=== PATIENT | male | born 1935 | race Caucasian/White ===

== ENCOUNTER 2019-01-25 01:28 | Day surgery (SDC) | payer MEDICARE, SELFPAY ==
[2019-01-22 12:38] VITALS: BMI 26.5
--- NOTE | 2019-01-24 17:24 | PM.IMHP ---
H&P: HPI History of Present Illness Chief complaint: Right Hallux Deformity Drop Foot, Painful Hardware Narrative: Raheem Rome is a 83 year old male who complains of right foot pain. He presents with pain and ulcer on the right side. He states that the symptoms have been chronic non-traumatic. The symptoms occur intermittently. Currently the patient states that the symptoms are mild-moderate. The pain is described as aching and localized. The symptoms occur intermittently. The patient indicates that the pain is located in the bottom of foot near great toe on the right side. The symptoms are aggravated by daily activities, walking and standing. Raheem states that the symptoms are relieved by rest and bandage changes. Review of Systems Constitutional: Constitutional: Denies fever(s) Eyes: Eyes: Reports blurry vision ENT: Reports hearing normal Cardiovascular: Cardiovascular: Denies chest pain, Reports irregular heart rhythm and Denies dyspnea Respiratory: Respiratory: Denies dyspnea and Denies wheezing Gastrointestinal: Gastrointestinal: Denies abdominal pain Genitourinary: Genitourinary: Denies urinary urgency Musculoskeletal: Musculoskeletal: Reports as per HPI and Denies numbness Integumentary/Breasts: Skin/Breast: Denies changing lesions and Denies sores Neurologic: Reports Normal hearing present, Denies behavioral changes, Denies confusion, Denies numbness and Denies convulsions Psychiatric: Psychiatric: Denies behavioral changes, Denies confusion and Denies hallucinations Endocrine: Endocrine: Denies heat intolerance Hematologic/Lymphatic: Hematologic/Lymphatic: Denies easy bleeding Allergic/Immunologic: Allergic/Immunologic: Denies wheezing PMFSH Family History Family History Mother Family history of malignant neoplasm, Onset Age: 62 Sibling Family history of malignant neoplasm, Onset Age: 45 Other Family history of cardiovascular disease Social History Social History Smoking status: Never smoker Alcohol intake: never Meds Home Medications and Allergies Home Medications Medication Instructions Recorded Confirmed Type levothyroxine 75 mcg PO DAILY 01/22/19 01/22/19 History lisinopril 2.5 mg PO DAILY 01/22/19 01/22/19 History metoprolol succinate 50 mg PO DAILY 01/22/19 01/22/19 History rivaroxaban [Xarelto] 20 mg PO HS 01/22/19 01/22/19 History Allergies Allergy/AdvReac Type Severity Reaction Status Date / Time No Known Allergies Allergy Unknown Unverified 01/22/19 12:19 NKFA Allergy Unknown Uncoded 01/22/19 12:32 Exam Const: General: healthy appearing; No in distress or confused Orientation/consciousness: oriented x3 and No confused HENMT: Head: normal to inspection, normocephalic and atraumatic Eyes: Conjunctivae: conjunctivae normal Sclera: sclerae normal Resp: Effort & Inspection: normal respiratory effort and no audible wheezes Cardio: Rhythm: abnormal rhythm Neuro: General: oriented x3 and No confused Extrem: Other: Strength LE * Strength Measurement - Ankle Long peroneal: Right: 4+/5, Left: 5/5. Ankle Dorsiflexion: Right: 2+/5, Left: 5/5. Ankle Plantarflexlon: Right: 5-/5. Foot Inversion: Right: 4+/5. Foot Eversion: Right: 4+/5. Foot Extensor toes: Right: 4/5. Foot Extensor great toe: Right: 5-/5. Foot Extensor hallucis longus: Right: 5-/5. Foot Flexor toes: Right: 4/5. Foot Flexor great toe: Right: 3+/5. Foot Flexor hallucis longus: Right: 2-/5. Ankle ROM L * Active ROM - Ankle Dorsiflexion: 10 degrees, Ankle Plantarflexion: 45 degrees, Inversion: 15 degrees, Eversion: 10 degrees. Ankle ROM R * Active ROM - Ankle Dorsiflexion: -15 degrees, Ankle Plantarflexion: 40 degrees, Eversion: 5 degrees, Inversion: 10 degrees. Passive ROM - Ankle Dorsiflexion: -10 degrees. Strength LE Normal Strength Description - Normal lower extremity: Bilateral. Con
[2019-01-25] VITALS (7 sets, daily range): BP systolic 114–138; BP diastolic 74–90; PULSE 61–79; RESP 12–20; TEMP 36.3–36.4; O2SAT 96–100
--- NOTE | ~2019-01-25 | XR_ITS ---
EXAMINATION: XR surgery orthopedic DATE: 01/25/2019 10:58 INDICATION: Arthrodesis of right first metatarsophalangeal joint. TECHNIQUE: 4 intraoperative spot fluoroscopic views of right foot were obtained. I was not present. F luoroscopy exposure time was 5 seconds. COMPARISON: Right foot radiographs 08/01/2018 FINDINGS: The plate and screws have been removed from the proximal first metatarsal. Images demonstra te placement of a dorsal plate and multiple screws across first metatarsophalangeal joint. IMPRESSION: 1. First metatarsophalangeal joint arthrodesis. Reviewed, dictated and finalized at location B. 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
--- NOTE | 2019-01-25 06:37 | WPDHPUPDATE1 ---
History and Physical Update Update Date/Time: 01/25/19 06:37 History and Physical has been reviewed, including an updated exam of the patient. There are NO changes in the patient's condition. Risks, benefits, and alternatives have been discussed and questions answered. Patient agrees to proceed with procedure.
[2019-01-25] MEDS: LACTATED RINGERS 1,000 ML 30 ML IV CONT ×2 (07:55→12:05)
[2019-01-25] MEDS: IBUPROFEN IV 800 MG/200 ML 800 MG/200 ML BAG 400 MG IVPB (08:00)
--- NOTE | 2019-01-25 08:12 | P.PNAN_ITS ---
Anes - Initial Pre Proc Eval Procedure: Operation Date: 01/25/19 09:00 Proposed Procedures p Right Hallux Metatarsophalangeal Arthrodesis, Extensor Tendon Transfer(Right) - David Dukes MD s Removal Hardware Right Foot(Right) - David Dukes MD Date/Time: 01/25/19 08:12 Surgeon: David Dukes MD Pre Op Diagnosis: Right Hallux Deformity Drop Foot, Painful Hardware Patient Data Age: 83 Gender: M Height: 1.78 m Weight: 83.99 kg Allergies Allergy/AdvReac Type Severity Reaction Status Date / Time No Known Allergies Allergy Unknown Unverified 01/25/19 07:48 Home Medications Medication Instructions Recorded Confirmed Type levothyroxine 75 mcg PO DAILY 01/22/19 01/25/19 History lisinopril 2.5 mg PO DAILY 01/22/19 01/25/19 History metoprolol succinate 50 mg PO DAILY 01/22/19 01/25/19 History rivaroxaban [Xarelto] 20 mg PO HS 01/22/19 01/25/19 History ECG: ATRIAL FIBRILLATION BORDERLINE R WAVE PROGRESSION, ANTERIOR LEADS BASELINE ARTIFACT- I, III, AVR, AVL, AVF, V1-V6 ABNORMAL ECG Patient hx anesthesia problems: none Family hx anesthesia problems: none [facility] Past Medical History Medical History (Updated 01/25/19 @ 07:58 by Rickey Joseph DO) Anticoagulant long-term use Atrial fibrillation Hypertension Hypothyroidism Neuropathy Osteoarthritis Family History Family History Mother Family history of malignant neoplasm, Onset Age: 62 Sibling Family history of malignant neoplasm, Onset Age: 45 Other Family history of cardiovascular disease Social History Social History Smoking status: Never smoker Alcohol intake: never Anes - Eval Final PreProcedure Day of Procedure 01/25/19 08:12 Heart: regular rate and rhythm Lungs: clear to auscultation and normal air movement Airway: Mallampati scale class III Neurological: alert and oriented Last oral intake: >/= 8 hours ASA classification: III Emergent: no Anesthetic plan: proceed Anesthesia type and monitoring: general LMA and standard monitoring Other findings: Stopped xarelto 01/22 Informed Consent: The patient's anesthetic plan and its attendant risks and benefits were discussed with the patient/family/POA. Questions were solicited and answers provided to the satisfaction of the patient/family/POA.
[2019-01-25] MEDS: ceFAZolin 2 GM/D5W 50 ML 2 GM/50 ML BAG IVPB (09:10)
--- NOTE | 2019-01-25 12:32 | PM.PROC ---
Procedure Note - Detailed Date of procedure: 01/25/19 Pre-op diagnosis: Right Hallux Deformity Drop Foot, Painful Hardware Post-op diagnosis: same Procedure performed: Right foot removal of hardware, hallux metatarsophalangeal arthrodesis, extensor tendon transfer. Description of procedure: Patient identified in the preoperative holding. Informed consent given. Operative extremity marked. Patient received intravenous antibiotics. Patient brought to the operating room where underwent general anesthetic by anesthesia team. Positioned supine on operating room table. Time-out performed confirming the patient, site of the surgery and the plan. Right foot prepped and draped in usual sterile surgical fashion using ChloraPrep skin solution. Foot and ankle exsanguinated and a calf tourniquet inflated to 225 mmHg. The hardware was addressed 1st. A dorsal longitudinal incision was made over the base of the 1st metatarsal with a 15 blade knife. Hemostasis controlled electrocautery. Extensor tendon was retracted laterally and sharp dissection overlying the plate and screws. There were 3 screws in the horizontal portion and 3 screws in the longitudinal portion of the plate which were all removed. The plate was then taken out. The overgrowth of bone was removed with a rongeur. This was thoroughly irrigated and the fascia was repaired with 2 O Vicryl interrupted suture. There is a previous dorsomedial longitudinal incision over the distal 1st metatarsal which was utilized for the arthrodesis. This was made with 15 blade knife. Hemostasis controlled Ld tree. The extensor tendon again was retracted laterally. The dorsal capsule was incised line with skin incision. There was severe deformity with dorsal dislocation of the proximal phalanx. We had to release the capsule and soft tissue off the medial lateral aspects of the proximal phalanx and the distal 1st metatarsal. This allowed us to then free up the metatarsophalangeal joint and reduced the hallux. The joint was then prepared with the Integra metatarsophalangeal joint preparation reamers. Guide pin was placed in the 1st metatarsal head and the articular surface was reamed. The guide pin was then placed in the phalangeal surface in the articular surface was reamed. The wound was thoroughly irrigated with antibiotic solution. Local bone graft was then packed into the arthrodesis site and this was reduced and provisionally pinned. Image intensification confirm alignment of the metatarsophalangeal joint. Fixation was then achieved with 3.0 mm cannulated lag screws x2 and a dorsal locking plate with 2.7 mm locking screws. Final position and placement of the hardware was verified with image intensification. The wound was thoroughly irrigated antibiotic solution. Capsule repaired with 2 Vicryl interrupted suture. Subcutaneous tissue repaired with 3 Monocryl interrupted suture. Skin repaired with 4 nylon running suture. There still a flexion deformity at the IP joint due to his previous deformity. In order to reduce the hallux a Z-lengthening of the extensor hallucis longus tendon was performed. Proximal portion was then split. A incision over the medial cuneiform that was extended and carried down to the dorsal cortex. Tibialis anterior was noted to be nonfunctional. The extensor hallucis longus was then transferred to the medial cuneiform with a bio tenodesis screw. A 5.0 mm drill was placed dorsal plantar. The tendon was placed into the drill hole and secured with a 4.75 x 15 mm bio tenodesis screw. The other portion of extensor hallucis tendon was then advanced and secured to the distal portion of extensor hallucis to bring the toe into neutral position. Wounds were thoroughly irrigated antibiotic solution. Fascia repaired with 2 Vicryl suture. Subcutaneous tissue repaired with 3 0 Monocryl interrupted suture and skin repaired with 4 nylon running suture. Secondary to transfer the extensor hallucis the foot was
== END 2019-01-25 14:02 | disposition home or self-care (01) ==
PROVIDERS: PCP Internal Medicine; Visit Provider Orthopaedic Surgery
PROC: (CPT 28750; principal; 2019-01-25 09:00)
PROC: (CPT 20680; 2019-01-25 09:00)
DX: M20.5X1 Other deformities of toe(s) (acquired), right foot (principal); T84.84XA Pain due to internal orthopedic prosthetic devices, implants and grafts, initial encounter; M21.371 Foot drop, right foot; L97.522 Non-pressure chronic ulcer of other part of left foot with fat layer exposed; L97.514 Non-pressure chronic ulcer of other part of right foot with necrosis of bone; I48.91 Unspecified atrial fibrillation; I10 Essential (primary) hypertension; E03.9 Hypothyroidism, unspecified; G62.9 Polyneuropathy, unspecified; M19.90 Unspecified osteoarthritis, unspecified site; Z79.01 Long term (current) use of anticoagulants
CPT/HCPCS: 20680; 28750; 27690; 76000; C1713; J0131; J0690; J1100; J1170; J1741; J2405; J2704; J3010; J7120

== ENCOUNTER 2020-11-26 13:20 | Outpatient (CLI) | payer MEDICARE, SELFPAY ==
--- NOTE | 2020-11-26 13:15 | ECG_ITS ---
Measurements Intervals [place] Rate: 62 P: [place]: 0 QRS: 5 QRSD: 85 T: 28 QT: 348 QTc: 356 Interpretive Statements ATRIAL FIBRILLATION LOW QRS VOLTAGE IN PRECORDIAL LEADS POOR R WAVE PROGRESSION, ANTERIOR LEADS BASELINE ARTIFACT- I, II, III, AVR, AVL, AVF, V3 ABNORMAL ECG Electronically Signed On 11-26-2020 14:34:24 CDT by Osmar Rodriguez D.O.
== END 2020-11-26 13:21 | disposition home or self-care (01) ==
LOC: ANHSURGERY 13:25
PROVIDERS: PCP Internal Medicine; Visit Provider Surgery
DX: K40.90 Unilateral inguinal hernia, without obstruction or gangrene, not specified as recurrent (principal); I10 Essential (primary) hypertension; Z01.818 Encounter for other preprocedural examination; R94.31 Abnormal electrocardiogram [ECG] [EKG]
CPT/HCPCS: 36415; 86850; 86900; 86901; 93005

== ENCOUNTER 2020-12-03 02:35 | Day surgery (SDC) | payer MEDICARE, SELFPAY ==
[2020-11-24 09:41] VITALS: BMI 25.4
[2020-12-03] VITALS (14 sets, daily range): BP systolic 128–149; BP diastolic 63–101; PULSE 51–87; RESP 15–18; TEMP 36.1–36.5; O2SAT 94–100
[2020-12-03] MEDS: LACTATED RINGERS 1,000 ML 30 ML IV CONT ×3 (06:42→10:55)
[2020-12-03] MEDS: KETOROLAC 15 MG/ML VIAL (*BKC) IV PUSH (06:47)
[2020-12-03] MEDS: ACETAMINOPHEN 500 MG TABLET 1000 MG PO (06:47)
--- NOTE | 2020-12-03 06:53 | WPDANESEPPF ---
Anes - Initial Pre Proc Eval Procedure: Operation Date: 12/03/20 07:30 Proposed Procedures p Laparoscopic Left Inguinal Hernia Repair With Mesh, DaVinci Assisted - Clint Cavazos DO Date/Time: 12/03/20 06:53 Surgeon: Clint Cavazos DO Pre Op Diagnosis: Left Ing Hernia Patient Data Age: 85 Gender: M Height: 1.79 m Weight: 85.5 kg Last Vital Signs Temp 36.1 C L 12/03/20 06:34 Pulse 87 12/03/20 06:34 Resp 18 12/03/20 06:34 BP 149/98 H 12/03/20 06:34 Pulse Ox 100 12/03/20 06:34 Allergies Allergy/AdvReac Type Severity Reaction Status Date / Time No Known Allergies Allergy Unknown Verified 12/03/20 06:31 Home Medications Medication Instructions Recorded Confirmed Type Xarelto 20 mg PO QPM 01/22/19 12/03/20 History lisinopril 2.5 mg PO DAILY 01/22/19 11/24/20 History metoprolol succinate 50 mg PO DAILY 01/22/19 12/03/20 History levothyroxine 75 mcg PO DAILY 12/03/20 12/03/20 History Patient hx anesthesia problems: none Family hx anesthesia problems: none Results Review: All pre-operative results and documents have been reviewed as part of the pre-operative evaluation. [facility] Past Medical History Medical History Anticoagulant long-term use Atrial fibrillation Callus of foot Hypertension Hypothyroidism Neuropathy Non-pressure chronic ulcer of other part of left foot with fat layer exposed Osteoarthritis Surgical History Surgical History (Updated 12/03/20 @ 06:53 by Blade Montenegro MD) History of appendectomy 1970 History of foot surgery Family History Family History Mother Family history of malignant neoplasm, Onset Age: 62 Sibling Family history of malignant neoplasm, Onset Age: 45 Father Family history of cardiovascular disease Social History Social History Smoking status: Never smoker Alcohol intake: never Living arrangements: with family 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 Informed Consent: The patient's anesthetic plan and its attendant risks and benefits were discussed with the patient/family/POA. Questions were solicited and answers provided to the satisfaction of the patient/family/POA.
--- NOTE | 2020-12-03 07:14 | PM.IMHP ---
H&P: HPI History of Present Illness Date/Time: 12/03/20 07:14 Chief Complaint: left inguinal hernia Narrative: 85 yo man presents for left inguinal hernia repair. He reports no changes since last seen in office. Review of Systems Review of Systems: All systems reviewed & are unremarkable except as noted in HPI and below Constitutional: Constitutional: Denies chills, Denies fever(s), Denies headache(s) and Denies weight loss Eyes: Eyes: Denies change in vision ENT: Denies dizziness, Denies headache(s), Denies neck mass and Denies throat swelling Cardiovascular: Cardiovascular: Denies chest pain, Denies lightheadedness and Denies dyspnea Respiratory: Respiratory: Denies cough, Denies dyspnea and Denies wheezing Gastrointestinal: Gastrointestinal: Denies abdominal pain, Denies change in bowel habits, Denies nausea and Denies vomiting Genitourinary: Genitourinary: Denies hematuria and Denies dysuria Musculoskeletal: Musculoskeletal: Reports as per HPI Integumentary/Breasts: Skin/Breast: Reports as per HPI Neurologic: Denies dizziness and Denies headache(s) Allergic/Immunologic: Allergic/Immunologic: Denies throat swelling and Denies wheezing [facility] Past Medical History Medical History Anticoagulant long-term use Atrial fibrillation Callus of foot Hypertension Hypothyroidism Neuropathy Non-pressure chronic ulcer of other part of left foot with fat layer exposed Osteoarthritis Surgical History Surgical History (Updated 12/03/20 @ 06:53 by Blade Montenegro MD) History of appendectomy 1970 History of foot surgery Family History Family History Mother Family history of malignant neoplasm, Onset Age: 62 Sibling Family history of malignant neoplasm, Onset Age: 45 Father Family history of cardiovascular disease Social History Social History Smoking status: Never smoker Alcohol intake: never Living arrangements: with family 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 Spiritual 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 concerns: No Meds Home Medications and Allergies Home Medications Medication Instructions Recorded Confirmed Type Xarelto 20 mg PO QPM 01/22/19 12/03/20 History lisinopril 2.5 mg PO DAILY 01/22/19 11/24/20 History metoprolol succinate 50 mg PO DAILY 01/22/19 12/03/20 History levothyroxine 75 mcg PO DAILY 12/03/20 12/03/20 History Allergies Allergy/AdvReac Type Severity Reaction Status Date / Time No Known Allergies Allergy Unknown Verified 12/03/20 06:31 Vital Signs Vital Signs - 24 hr 12/03/20 06:34 Temperature 36.1 C L Pulse Rate 87 Respiratory Rate 18 Blood Pressure 149/98 H Pulse Oximetry 100 Exam Const: General: no acute distress and alert Orientation/consciousness: patient oriented x3 HENMT: Head: normocephalic and atraumatic Ears: hearing grossly normal bilaterally General nose exam: Normal nares present Mouth: Yes Normal oral and palatal mucosa present Eyes: Periorbital: periorbital findings normal Sclera: sclerae normal EOM: EOMs intact bilaterally Neck: Neck: normal visual inspection, no lymphadenopathy and trachea midline Chest: Chest palpation & inspection: normal inspection of the chest Resp: Effort & Inspection: normal respiratory effort Auscultation: clear to auscultation bilaterally Cardio: Jugular venous distension: no JVD Rate: regular rate Rhythm: regular rhythm Heart sounds: S1 normal heart sound present and S2 normal heart sound present Peripheral pulses: Peripheral pulses 2+ throughout GI: Inspection: normal to inspection GI Palp: Yes Soft to palpation, No Tenderness to palpation present (GI), No Guarding due to palpation present (GI) and No Rebound tenderness present Percussion: Yes normal to percussion Auscultation: normal bowel sounds : G
--- NOTE | 2020-12-03 07:16 | WPDHPUPDATE1 ---
History and Physical Update Update Date/Time: 12/03/20 07:16 History and Physical has been reviewed, including an updated exam of the patient. There are NO changes in the patient's condition. Risks, benefits, and alternatives have been discussed and questions answered. Patient agrees to proceed with procedure.
[2020-12-03] MEDS: ceFAZolin 2 GM/D5W 50 ML 2 GM/50 ML BAG IVPB (07:28)
[2020-12-03] MEDS: BUPIVACAINE HCL 0.5% PF 30 ML VIAL INFILTRATE (08:16)
--- NOTE | 2020-12-03 08:40 | W.PM.PROC2 ---
Procedure Note - Detailed Date of Procedure 12/03/20 Pre-op Diagnosis Left inguinal hernia Post-op Diagnosis same (Direct left inguinal hernia) Procedure Performed Laparoscopic left inguinal hernia repair with mesh, da Che assisted Surgeon Clint Cavazos, Anesthesia general and local (0.5% bupivacaine with epinephrine) Indications This is an 85-year-old man who presents with left groin pain that has worsened over the past year. He was found to have evidence of left inguinal hernia. He initially held off on surgery because he was having minimal pain and wanted to wait until the COVID restrictions had lifted, but now his pain has become more consistent and he is having to wear a hernia belt. Discussions were made with the patient about treatment options and decision was made to proceed with robotic assisted laparoscopic left inguinal hernia repair with mesh. Findings Laparoscopic left inguinal hernia repair was performed. Patient was found to have a moderate-sized direct left inguinal hernia. There was no evidence of a right inguinal hernia. The preperitoneal pocket was created and a robotic assisted transabdominal preperitoneal approach was utilized. A large left Bard 3DMax mid mesh was placed. I ensured that this overlapped the entire left myopectineal orifice. No specimens were obtained for pathology. Description of Procedure Procedure as well as risks, benefits, and alternatives were discussed with the patient. Written consent was obtained and placed in chart prior to procedure. Patient was brought back to surgical suite. He was placed supine on operating table. Time-out was done to confirm patient and procedure. He was then intubated by Anesthesia Department. His abdomen was prepped and draped in sterile fashion using chlorhexidine prep. 0.5% bupivacaine with epinephrine was infiltrated at each location for incision. A 12 millimeter transverse incision was made just superior to the umbilicus using a 15 blade scalpel. Blunt dissection was carried out down to the linea alba. A vertical incision was made at the linea alba using a 15 blade scalpel. The peritoneum was then bluntly entered. A 12 millimeter trocar was inserted and carbon dioxide insufflation was used to create a pneumoperitoneum. A camera was inserted and the abdominal cavity was inspected. The patient was placed in slight Trendelenburg position. An 8 millimeter incision was made on the right lateral abdomen and an 8 millimeter trocar was inserted under direct visualization. Another 8 millimeter incision was made in the left lateral abdomen and an 8 millimeter trocar was inserted under direct visualization. The robotic arms were brought up to the patient's bedside and secured to the ports. The camera and instruments were inserted. I then moved over to the robotic console and took control of the camera and instruments. After careful inspection of the abdominal cavity, I began scoring the peritoneum along the left lower quadrant using scissors with electrocautery. The preperitoneal plane was entered and this was carefully dissected caudally along the inferior epigastric vessels. Careful dissection with scissors with electrocautery and blunt dissection was used to continue this dissection. I dissected far enough laterally to allow for mesh placement, and also dissected medially to identify the pubic arch and Sandeep's ligament. The hernia sac was identified and carefully dissected posteriorly. The cord contents were also identified and the peritoneum was carefully dissected far enough posteriorly to allow for mesh placement. Once an adequate pocket was created, I then placed the mesh within the preperitoneal pocket and carefully unfolded it. The mesh was centered on the hernia defect with adequate overlap circumferentially. The inferior edge of the mesh was inspected to ensure that it was far enough away from the peritoneal edge. The mesh appeared in proper position overlying
--- NOTE | 2020-12-03 11:53 | SUR.PHASEII ---
Patient attempted to use the bathroom and had no luck.
--- NOTE | 2020-12-03 13:48 | SUR.PHASEII ---
RN bladder scanned patient at about 1325. Patient had 598mL in bladder. RN notified Dr. Cavazos. Dr. Cavazos went and spoke to patient about next steps in outpatient room. Dr. Cavazos told RN to give it another hour and see if patient was able to void on own.
--- NOTE | 2020-12-03 14:42 | SUR.PHASEII ---
Patient's vitals are stable. Patient is getting dressed and waiting for spouse to pick him up. Dr. Cavazos made aware that patient was able to void a steady stream and said it was ok to discharge home as long as patient felt ok.
== END 2020-12-03 15:05 | disposition home or self-care (01) ==
PROVIDERS: PCP Internal Medicine; Visit Provider Surgery
PROC: 8E0Y4CZ Robotic Assisted Procedure of Lower Extremity, Percutaneous Endoscopic Approach (ICD-10-PCS; CPT 49650; principal; 2020-12-03 07:30)
DX: K40.90 Unilateral inguinal hernia, without obstruction or gangrene, not specified as recurrent (principal); I48.91 Unspecified atrial fibrillation; I10 Essential (primary) hypertension; E03.9 Hypothyroidism, unspecified; G62.9 Polyneuropathy, unspecified; Z79.01 Long term (current) use of anticoagulants
CPT/HCPCS: 49650; S2900; 36415; 86850; 86900; 86901; 93005; A9270; J0690; J1100; J1885; J2405; J2704; J3010; J7030; J7120

== ENCOUNTER 2021-11-05 07:46 | Emergency (ER) | payer MEDICARE, SELFPAY ==
--- NOTE | ~2021-11-05 | XR_ITS ---
EXAMINATION: XR chest 2V DATE: 11/05/2021 08:45 INDICATION: Chest pain. Shortness of breath. TECHNIQUE: Frontal and lateral views of the chest were obtained. COMPARISON: Chest 2 views 11/15/2004 FINDINGS: There are airspace opacities in the lower lung zones. No pleural effusion or pneumothorax. The heart size is normal. There is mild chronic anterior wedging of multiple thoracic vertebral casey s. IMPRESSION: 1. Airspace opacities in the lower lung zones, consistent with atelectasis versus pneumonia. Reviewed, dictated and finalized at location A. IMPRESSION: 1. Airspace opacities in the lower lung zones, consistent with atelectasis vers us pneumonia.
[2021-11-05 07:55] VITALS: BP 148/78; PULSE 77; RESP 19; TEMP 36.2; O2SAT 98
--- NOTE | 2021-11-05 07:58 | ECG_ITS ---
Measurements Intervals [place] Rate: 70 P: [place]: 0 QRS: 32 QRSD: 94 T: 39 QT: 365 QTc: 394 Interpretive Statements ATRIAL FIBRILLATION LOW QRS VOLTAGE IN LIMB LEADS BORDERLINE R WAVE PROGRESSION, ANTERIOR LEADS BASELINE WANDER- V5-V6 ABNORMAL ECG COMPARED TO ECG 11/26/2020 13:40:03 NO SIGNIFICANT CHANGES Electronically Signed On 11-05-2021 8:02:51 CDT by Osmar Rodriguez D.O.
[2021-11-05 08:01] VITALS: PULSE 84
[2021-11-05 08:33] LABS: Alanine Aminotransferase 22 U/L (6-50); Albumin Level 4.1 g/dL (3.5-5.1); Alkaline Phosphatase 55 U/L (38-126); Anion Gap 9 mmol/L (8-16); Aspartate Amino Transferase 27 U/L (17-59); Bilirubin,Total 0.6 mg/dL (0.2-1.3); Blood Urea Nitrogen 29 mg/dL (9-20); Calcium 8.7 mg/dL (8.4-10.2); Carbon Dioxide 27 mmol/L (22-30); Chloride 104 mmol/L (98-107); Estimated CRCL calculation 48 ml/min; Estimated Glomerular Filt Rate > 60; Glucose 115 mg/dL (65-110); Lipase 63 U/L (23-300); Potassium 4.5 mmol/L (3.4-5.0); Sodium 140 mmol/L (137-145)
[2021-11-05 08:39] LABS: INR 1.5; Prothrombin Time 17.3 Seconds (11.1-14.7)
[2021-11-05 08:40] LABS: Partial Thromboplastin Time 36.6 SECONDS (22.3-36.8)
[2021-11-05 08:44] LABS: Troponin I < 0.012 ng/mL (0.000-0.034)
[2021-11-05 08:50] LABS: Basophils Percent Auto 0.7 % (0.2-1.2); Eosinophils Absolute Auto 0.1 K/mm3 (0-0.3); Eosinophils Percent Auto 1.8 % (0-4.4); Hematocrit 45.7 % (42.0-52.0); Hemoglobin 14.9 g/dL (14.0-18.0); Immature Granulocyte Absolute 0.03 K/mm3 (0.00-0.031); Immature Granulocyte Percent A 0.5 % (0-0.5); Lymphocytes Absolute Auto 1.26 K/mm3 (0.9-3.2); Lymphocytes Percent Auto 22.2 % (18.3-44.2); Mean Corpuscular HGB Conc 32.6 g/dl (32-36); Mean Corpuscular Hemoglobin 33.2 pg (26-34); Mean Corpuscular Volume 101.8 fl (80-100); Mean Platelet Volume 10.6 fl (7.4-10.4); Monocytes Absolute Auto 0.6 K/mm3 (0.1-0.6); Monocytes Percent Auto 11.1 % (2.6-8.5); Neutrophils Absolute Auto 3.6 K/mm3 (1.3-6.7); Neutrophils Percent Auto 63.7 % (45.5-73.1); Platelet Count Result 164 k/mm3 (150-375); Red Blood Count 4.49 M/mm3 (4.6-6.20); Red Cell Distribution Width 13.5 % (11.5-14.5); White Blood Count 5.7 K/mm3 (4.5-10.0)
--- NOTE | 2021-11-05 09:26 | ED.GENADULT ---
HPI - General Adult General Chief complaint: Chest Pain Stated complaint: chest pain Time Seen by Provider: 11/05/21 08:00 History of Present Illness HPI narrative: This is an 86-year-old male presenting to ED with chief complaint of chest discomfort. Last night the patient was working on a wheelbarrow his house when he started to feel some less sided discomfort. Says was not quite pain but did not feel right. It radiated to his left arm. Said that it comes and goes but is completely resolved once he stopped working on the wheelbarrow. He has never experienced pain like this before. There are no exacerbating factors. It was not associated with nausea vomiting diaphoresis shortness of breath. Patient denies fever chills or productive cough. Patient has chronic lower extremity edema of his legs which has been there for years. Related Data Home Medications Medication Instructions Recorded Confirmed lisinopril 2.5 mg tablet 2.5 mg PO DAILY 01/22/19 07/28/21 metoprolol succinate 50 mg 50 mg PO DAILY 01/22/19 07/28/21 tablet,extended release 24 hr rivaroxaban 20 mg tablet (Xarelto) 20 mg PO QPM 01/22/19 07/28/21 Allergies Allergy/AdvReac Type Severity Reaction Status Date / Time No Known Allergies Allergy Unknown Verified 11/05/21 08:05 Review of Systems Review of Systems: CONSTITUTIONAL: Denies night sweats. EYES: No eye pain ENT: Denies rhinorrhea CARDIOVASCULAR: Denies palpitations RESPIRATORY: Denies hemoptysis GASTROINTESTINAL: Denies hematemesis GENITOURINARY: Denies hematuria. SKIN: Denies rash MUSCULOSKELETAL: Denies myalgia. NEUROLOGIC: Denies weakness. PSYCHIATRIC: Denies delusions PMFSH Past Medical History Medical History Anticoagulant long-term use Atrial fibrillation Callus of foot Hypertension Hypothyroidism Neuropathy Non-pressure chronic ulcer of other part of left foot with fat layer exposed Osteoarthritis Surgical History Surgical History H/O left inguinal hernia repair lih repair w mesh davinci assisted 12/03/20 History of appendectomy 1970 History of foot surgery Family History Family History Mother Family history of malignant neoplasm, Onset Age: 62 Sibling Family history of malignant neoplasm, Onset Age: 45 Father Family history of cardiovascular disease Social History Social History Smoking status: Never smoker Alcohol intake: never 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 Spiritual care concerns: No Course Vital Signs Vital signs: Vital Signs Temperature 97.1 F L 11/05/21 07:55 Pulse Rate 77 11/05/21 07:55 Respiratory Rate 19 11/05/21 07:55 Blood Pressure 148/78 H 11/05/21 07:55 Pulse Oximetry 98 11/05/21 07:55 Oxygen Delivery Room Air 11/05/21 07:55 Temperature 97.1 F L 11/05/21 07:55 Pulse Rate 59 L 11/05/21 12:55 Respiratory Rate 11/05/21 12:55 Blood Pressure 123/90 11/05/21 12:55 Pulse Oximetry 98 11/05/21 12:55 Oxygen Delivery Room Air 11/05/21 07:55 Medical Decision Making MDM Narrative Medical decision making narrative: This is an 86-year-old male presenting ED with chest pain. He is currently chest pain-free. ACS workup has been obtained. lab work was within acceptable limits. Patient had 2- troponins. Chest x-ray showed bibasilar atelectasis vs. pneumonia. Patient is not in respiratory distress, does not have fever, does not have a white blood cell count. There is no evidence of clinical pneumonia at this time. EKG interpretation: Rhythm Atrial fibrillation, Rate 70, [place] -[normal], [place] -[normal], QRS [narrow], QTC [normal], T waves -[negative for concerning inversions], ST Segments - [Negative for concerning eleva
[2021-11-05 10:19] VITALS: BP 134/98; PULSE 63; RESP 18; O2SAT 98
[2021-11-05] MEDS: ASPIRIN 81 MG CHEWABLE TABLET 324 MG PO (10:19)
[2021-11-05 11:32] LABS: Troponin I < 0.012 ng/mL (0.000-0.034)
[2021-11-05 12:55] VITALS: BP 123/90; PULSE 59; RESP 19; O2SAT 98
[2021-11-05 13:35] VITALS: BP 137/84; PULSE 54; RESP 19; O2SAT 98
== END 2021-11-05 13:35 | disposition home or self-care (01) ==
PROVIDERS: Emergency Provider Emergency Medicine; PCP Family Medicine
DX: R07.89 Other chest pain (principal); I48.91 Unspecified atrial fibrillation; I10 Essential (primary) hypertension; E03.9 Hypothyroidism, unspecified; G62.9 Polyneuropathy, unspecified; M19.90 Unspecified osteoarthritis, unspecified site; Z79.01 Long term (current) use of anticoagulants; R94.31 Abnormal electrocardiogram [ECG] [EKG]
CPT/HCPCS: 36415; 71046; 80053; 83690; 84484; 85025; 85610; 85730; 93005; 99284; A9270

== ENCOUNTER → 2021-11-16 13:58 | Outpatient (CLI) | payer MEDICARE, SELFPAY ==
--- NOTE | ~2021-11-16 | XR_ITS ---
EXAMINATION: XR chest 2V 11/16/2021 14:09 INDICATION: Chest pain PROCEDURE: 2 view chest COMPARISON: 11/05/2021 FINDINGS: The lungs are clear. The cardiomediastinal silhouette is within normal limits. There are no pleural effusions. There is no pneumothorax suspected. IMPRESSION: 1: NO ACUTE CARDIOPULMONARY DISEASE. Reviewed, dictated and finalized at location A.
== END ==
PROVIDERS: PCP Family Medicine; Visit Provider Family Medicine
DX: R07.9 Chest pain, unspecified (principal)
CPT/HCPCS: 71046

== ENCOUNTER 2021-12-10 10:43 | Emergency (ER) | payer MEDICARE, SELFPAY ==
--- NOTE | ~2021-12-10 | XR_ITS ---
XR hand LT 2V 12/10/2021 11:41 Indication: Left hand pain Procedure: 2 views left hand Comparison: No prior studies for comparison. Findings: There is osteopenia. There is moderate polyarticular osteoarthritis. No acute fracture, sub luxation or dislocation. No focal soft tissue abnormalities. No foreign bodies. Impression: 1: No acute fracture. Reviewed, dictated and finalized at location B. Impression: 1: No acute fracture.
--- NOTE | 2021-12-10 12:19 | ED.WOUNDLAC ---
HPI - Wound/Laceration General Chief Complaint: Wound/Laceration Stated Complaint: wound to left hand Time Seen by Provider: 12/10/21 12:01 Source: RN notes reviewed History of Present Illness HPI narrative: Presents to emergency department from home for left hand wound. Patient states he was working on his tractor this morning try to figure out why it was not working at his diet hands done working around some electrical panel when he stated he noticed an area of itching on the back of his left hand and a look in the hand was swollen and mildly purplish in color over the dorsal aspect he denies any known trauma to the area states the area does not hurt states the swelling has improved since earlier this morning he has full function of his left hand without any difficulty Related Data Home Medications Medication Instructions Recorded Confirmed lisinopril 2.5 mg tablet 2.5 mg PO DAILY 01/22/19 07/28/21 metoprolol succinate 50 mg 50 mg PO DAILY 01/22/19 07/28/21 tablet,extended release 24 hr rivaroxaban 20 mg tablet (Xarelto) 20 mg PO QPM 01/22/19 07/28/21 Allergies Allergy/AdvReac Type Severity Reaction Status Date / Time No Known Allergies Allergy Unknown Verified 11/16/21 13:58 Review of Systems Review of Systems: Gen.: Denies fevers or chills Musculoskeletal: See HPI Neuro: Denies numbness, tingling, weakness Skin: Denies rash Endo: Denies DM PMFSH Past Medical History Medical History Anticoagulant long-term use Atrial fibrillation Callus of foot Hypertension Hypothyroidism Neuropathy Non-pressure chronic ulcer of other part of left foot with fat layer exposed Osteoarthritis Surgical History Surgical History H/O left inguinal hernia repair lih repair w mesh davinci assisted 12/03/20 History of appendectomy 1970 History of foot surgery Family History Family History Mother Family history of malignant neoplasm, Onset Age: 62 Sibling Family history of malignant neoplasm, Onset Age: 45 Father Family history of cardiovascular disease Social History Social History Smoking status: Never smoker Alcohol intake: never 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 Following commands, speech normal, no focal deficits SKIN:: Warm, dry. Normal Color no rash or lesions Course Course Emergency Course: Discussed with patient results of workup and diagnosis. Discussed need for follow-up with primary care, proper use of medication, and reasons to return to the emergency department. Patient understands and agrees to current treatment plan Discharge Plan Discharge Clinical Impression: Contusion of finger of left hand Patient Disposition: Home, Self-Care Condition: Stable Instructions: Antibiotic Form, Contusion in Adults (ED) Additional Instructions: Return for increasing pain swelling or any other symptoms of concern Prescriptions: No Action metoprolol succinate 50 mg Tablet Extended Release 24 Hr 50 mg PO DAILY lisinopril 2.5 mg Tablet 2.5 mg PO DAILY Xarelto 20 mg Tablet 20 mg PO QPM Hold Instructions: Resume on 12/04/20. levothyroxine 75 mcg tablet 75 mcg PO DAILY Qty: 90 4RF omeprazole 20 mg capsule,delayed release(DR/EC) 20 mg PO DAILY Qty: 30 2RF Follow-up/R
== END 2021-12-10 12:54 | disposition home or self-care (01) ==
PROVIDERS: Emergency Provider Emergency Medicine; PCP Family Medicine
DX: S60.00XA Contusion of unspecified finger without damage to nail, initial encounter (principal); I10 Essential (primary) hypertension; I48.91 Unspecified atrial fibrillation; E03.9 Hypothyroidism, unspecified; Z79.01 Long term (current) use of anticoagulants; X58.XXXA Exposure to other specified factors, initial encounter
CPT/HCPCS: 73120; 99283

== ENCOUNTER 2022-06-04 15:20 | Emergency (ER) | payer MEDICARE, SELFPAY ==
[2022-06-04 15:22] VITALS: BP 141/78; PULSE 63; RESP 18; TEMP 36.3; O2SAT 96
--- NOTE | 2022-06-04 16:33 | ED.GENADULT ---
HPI - General Adult General Chief complaint: Wound/Laceration Stated complaint: laceration Time Seen by Provider: 06/04/22 16:09 History of Present Illness HPI narrative: 87-year-old male presented the emergency department for evaluation of a laceration to the dorsum of his right hand. Patient states he was working with plastic and he cut his hand. Patient denies any associated numbness or weakness. Patient states that he is unsure of his last tetanus. Related Data Home Medications Medication Instructions Recorded Confirmed lisinopril 2.5 mg tablet 2.5 mg PO DAILY 01/22/19 07/28/21 metoprolol succinate 50 mg 50 mg PO DAILY 01/22/19 07/28/21 tablet,extended release 24 hr rivaroxaban 20 mg tablet (Xarelto) 20 mg PO QPM 01/22/19 07/28/21 Allergies Allergy/AdvReac Type Severity Reaction Status Date / Time No Known Allergies Allergy Unknown Verified 04/29/22 10:11 Review of Systems Review of Systems: All systems reviewed & are unremarkable except as noted in HPI and below [facility] Past Medical History Medical History Anticoagulant long-term use Atrial fibrillation Callus of foot Hypertension Hypothyroidism Neuropathy Non-pressure chronic ulcer of other part of left foot with fat layer exposed Osteoarthritis Surgical History Surgical History H/O left inguinal hernia repair lih repair w mesh davinci assisted 12/03/20 History of appendectomy 1970 History of foot surgery Family History Family History Mother Family history of malignant neoplasm, Onset Age: 62 Sibling Family history of malignant neoplasm, Onset Age: 45 Father Family history of cardiovascular disease Social History Social History (Updated 04/29/22 @ 10:17 by Armida Guallpa CMA) Smoking status: Never smoker Alcohol intake: never Lack of Transportation: No Lack of Food: Never True Current Housing: I Have Housing Concerned About Future Housing: No Difficulty Paying Gas/Electric Bills: No Difficulty Paying for Meds: No Currently Unemployed: No Education: Master's Degree or Higher Difficulty w/ Childcare or Family Care: No Living arrangements: with family 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 HEAD: normocephalic, atraumatic. EYES: PERRLA/EOMI, conjunctivae clear. NECK: Supple. No adenopathy, no masses. RESPIRATORY: Airway patent, respirations nonlabored. Clear to auscultation bilaterally, no rales, rhonchi, wheezing. CARDIOVASCULAR: Regular rate and rhythm without murmurs rubs or gallops. ABDOMINAL: Soft, nontender, nondistended, normal bowel sounds MUSCULOSKELETAL: Moves all extremities. Strength/ROM intact, No edema, No calf tenderness. NEURO: Alert. Cranial nerves II through XII intact. Grossly intact SKIN: Warm, dry. Normal Color, laceration to dorsum of right hand Course Course Emergency Course: 87-year-old presented to the emergency department for evaluation of a laceration to the dorsum of his right hand. Laceration was repaired as described above. Patient's tetanus was updated. Patient family updated on the treatment plan for home. All question concerns were addressed. Vital Signs Vital signs: Vital Signs Temperature 97.3 F L 06/04/22 15:22 Pulse Rate 63 06/04/22 15:22 Respiratory Rate 18 06/04/22 15:22 Blood Pressure 141/78 H 06/04/22 15:22 Pulse Oximetry 96 06/04/22 15:22 Oxygen Delivery Room Air 06/04/22 15:22 Temperature 97.3 F L 06/04/22 15:22 Pulse Rate 63 06/04/22 15:22 Respiratory Rate 18 06/04/22 15:22 Blood Pressure 141/78 H 06/04/22 15:22 Pulse Oximetry 96 06/04/22 15:22 Oxygen
[2022-06-04] MEDS: TETANUS,DIPHTHERIA,AC PERTUSSIS ADULT (0.5 ML) BOOSTRIX IM (17:04)
[2022-06-04] MEDS: LIDOCAINE HCL 1% LOCAL INJ 10 ML VIAL INFILTRATE (17:05)
== END 2022-06-04 18:20 | disposition home or self-care (01) ==
PROVIDERS: Emergency Provider Emergency Medicine; PCP Family Medicine
DX: S61.411A Laceration without foreign body of right hand, initial encounter (principal); I48.91 Unspecified atrial fibrillation; I10 Essential (primary) hypertension; E03.9 Hypothyroidism, unspecified; Z79.01 Long term (current) use of anticoagulants; Z23 Encounter for immunization; W45.8XXA Other foreign body or object entering through skin, initial encounter
CPT/HCPCS: 12002; 90471; 90715; 99282

== ENCOUNTER 2023-05-25 10:39 | Observation (INO) | payer MEDICARE, SELFPAY ==
[2023-05-25] VITALS (13 sets, daily range): BP systolic 107–146; BP diastolic 67–97; PULSE 58–78; RESP 15–24; TEMP 36.2–36.8; O2SAT 91–99; BMI 26.7
--- NOTE | ~2023-05-25 | NM_ITS ---
EXAMINATION: NM leidy stress w perfusion DATE: 05/26/2023 12:22 INDICATION: Chest pain TECHNIQUE: Rest images were obtained following intravenous administration of 8.8 mCi Tc99m tetrofosmi n (Myoview). The patient was infused intravenously with Lexiscan (Regadenoson). Then, 88.5 mCi Tc99m tetrofosmin (Myoview) was administered intravenously, and stress images were obtained initially in th e supine position with repeat post stress images obtained in the prone position. Data was reconstruct ed into short axis and horizontal and vertical long axis SPECT images. Gated SPECT images were also o btained. COMPARISON: None. FINDINGS: There is likely diaphragmatic attenuation artifact along the inferior wall and atrophy of t he apical and periapical segments which is more extensive on the rest than the post stress images in the supine position and which normalizes on the post stress images obtained in the prone position. Th ere is no definite reversible or fixed perfusion abnormality to suggest ischemia or infarction. Ther e is normal left ventricular chamber size, wall motion and ejection fraction. Left ventricular eject ion fraction measures >70%. IMPRESSION: 1. Normal myocardial perfusion at rest and during stress with some diaphragmatic attenuation artifact on the imaging obtained in supine position which normalizes with prone imaging. 2. Left ventricular ejection fraction measuring >70%. Reviewed, dictated and finalized at location B. IMPRESSION: 1. Normal myocardial perfusion at rest and during stress with some diaphragmati c attenuation artifact on the imaging obtained in supine position which normali zes with prone imaging. 2. Left ventricular ejection fraction measuring >70%.
--- NOTE | ~2023-05-25 | XR_ITS ---
Portable chest x-ray Comparison: None Clinical History: Chest tightness Findings: Lungs are clear, without focal consolidation or pleural effusion. Cardiomediastinal silho uette is stable. Bones and soft tissues are unremarkable. Impression: Clear lungs. Reviewed, dictated and finalized at location M. Impression: Clear lungs.
--- NOTE | 2023-05-25 10:45 | ECG_ITS ---
Measurements Intervals [place] Rate: 82 P: * CT: * QRS: 3 QRSD: 95 T: 28 QT: 349 Avg RR 729 QTc: 387 QTcB 408 QTcF 387 Interpretive Statements ATRIAL FIBRILLATION POSSIBLE ANTERIOR MYOCARDIAL INFARCTION, PROBABLY OLD [30 ms Q WAVE IN V3/V4, OR R < 0.2 mV IN V4] ABNORMAL RHYTHM ECG SEE SCANNED COPY FOR SIGNATURE MTDD
[2023-05-25] MEDS: ASPIRIN 81 MG CHEWABLE TABLET 324 MG PO (10:59)
[2023-05-25 11:07] LABS: Basophils Percent Auto 0.5 % (0.2-1.2); Eosinophils Absolute Auto 0.1 K/mm3 (0-0.3); Eosinophils Percent Auto 1.1 % (0-4.4); Hemoglobin 14.7 g/dL (14.0-18.0); Immature Granulocyte Absolute 0.02 K/mm3 (0.00-0.031); Immature Granulocyte Percent A 0.3 % (0-0.5); Lymphocytes Absolute Auto 1.54 K/mm3 (0.9-3.2); Mean Corpuscular HGB Conc 33.4 g/dl (32-36); Mean Corpuscular Hemoglobin 33.3 pg (26-34); Mean Corpuscular Volume 99.8 fl (80-100); Mean Platelet Volume 9.9 fl (7.4-10.4); Monocytes Absolute Auto 0.8 K/mm3 (0.1-0.6); Monocytes Percent Auto 13.1 % (2.6-8.5); Neutrophils Absolute Auto 3.9 K/mm3 (1.3-6.7); Platelet Count Result 152 k/mm3 (150-375); Red Blood Count 4.41 M/mm3 (4.6-6.20); Red Cell Distribution Width 13.9 % (11.5-14.5); White Blood Count 6.4 K/mm3 (4.5-10.0)
[2023-05-25 11:13] LABS: Alanine Aminotransferase 18 U/L (6-50); Albumin Level 4.3 g/dL (3.5-5.1); Alkaline Phosphatase 51 U/L (38-126); Anion Gap 6 mmol/L (4-12); Aspartate Amino Transferase 25 U/L (17-59); Bilirubin,Total 0.8 mg/dL (0.2-1.3); Blood Urea Nitrogen 34 mg/dL (9-20); Calcium 9.2 mg/dL (8.4-10.2); Carbon Dioxide 27 mmol/L (22-30); Chloride 107 mmol/L (98-107); Estimated CRCL calculation 51 ml/min; Estimated Glomerular Filt Rate > 60; Glucose 118 mg/dL (65-110); INR 1.2; Lipase 55 U/L (23-300); Potassium 4.4 mmol/L (3.4-5.0); Sodium 140 mmol/L (137-145)
[2023-05-25 11:14] LABS: Partial Thromboplastin Time 33.6 Seconds (22.3-36.8)
[2023-05-25 11:24] LABS: Troponin I < 0.012 ng/mL (0.000-0.034)
--- NOTE | 2023-05-25 12:08 | ED.CHESTPAIN ---
HPI - Chest Pain General Chief Complaint: Chest Pain Stated Complaint: CP Time Seen by Provider: 05/25/23 10:45 History of Present Illness HPI narrative: Patient is an 88-year-old male who presents ER with chest pain. Left-sided. Sharp. Radiating into the left neck. No history of coronary disease. He does see Dr. Crain for his atrial fibrillation and he is anticoagulated. Patient was physically active and was using bolt cutters to cut some fencing when this occurred. Symptoms lasted 15 minutes. He was short of breath and nauseous. Symptoms resolved on their own. Related Data Home Medications Medication Instructions Recorded Confirmed metoprolol succinate 50 mg 50 mg PO DAILY 01/22/19 05/25/23 tablet,extended release 24 hr rivaroxaban 20 mg tablet (Xarelto) 20 mg PO QPM 01/22/19 05/25/23 sodium chloride 5 % eye ointment 1 applic EACH EYE HS 05/25/23 05/25/23 (Ana [place]isa 128) Allergies Allergy/AdvReac Type Severity Reaction Status Date / Time No Known Allergies Allergy Unknown Verified 05/25/23 10:51 Review of Systems Review of Systems: All systems reviewed & are unremarkable except as noted in HPI and below ENT: Reports system reviewed and no additional complaints, except as documented Cardiovascular: Cardiovascular: Reports chest pain and Denies rapid heart rate Respiratory: Respiratory: Reports no additional respiratory complaints Gastrointestinal: Gastrointestinal: Reports no additional gastrointestinal complaints Musculoskeletal: Musculoskeletal: Reports no additional musculoskeletal complaints [facility] Past Medical History Medical History Anticoagulant long-term use Atrial fibrillation Callus of foot Hypertension Hypothyroidism Neuropathy Non-pressure chronic ulcer of other part of left foot with fat layer exposed Osteoarthritis Surgical History Surgical History H/O left inguinal hernia repair lih repair w mesh davinci assisted 12/03/20 History of appendectomy 1970 History of foot surgery Family History Family History Mother Family history of malignant neoplasm, Onset Age: 62 Sibling Family history of malignant neoplasm, Onset Age: 45 Father Family history of cardiovascular disease Social History Social History Smoking status: Never smoker Alcohol intake: never Substance use: never Do You Feel Safe in your Home?: Yes Lack of Transportation: No Lack of Food: Never True Current Housing: I Have Housing Concerned About Future Housing: No Difficulty Paying Gas/Electric Bills: No Difficulty Paying for Meds: No Currently Unemployed: No Education: Master's Degree or Higher Difficulty w/ Childcare or Family Care: No Living arrangements: with family 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 HEAD: Normocephalic, atraumatic. ENT: Mucous membranes moist. NECK: Supple. CHEST: Clear to auscultation. No respiratory distress. HEART: Irregular regular rate and rhythm. Normal peripheral pulses. ABDOMEN: Soft, nontender, nondistended. EXTREMITIES: Normal range of motion. No edema. SKIN: Warm, dry, no rash. NEURO: Alert and oriented x3. PSYCH: Normal mood and affect. Course Course Emergency Course: Dr. Cortes consulted. Admit for observation. Chest pain free at this time. Labs normal. EKG with AFib, Q-waves V1 through V3. Low voltage inferiorly. Vital Signs Vital signs: Vital Signs Temperature 97.6 F 05/25/23 10:45 Pulse Rate 78 05/25/23 10:45 Respiratory Rate 16 05/25/23 10:45 Blood Pressure 146/97 H 05/25/23 10:45 P
--- NOTE | 2023-05-25 13:04 | PM.IMHP ---
H&P: HPI History of Present Illness Date/Time: 05/25/23 13:04 Chief Complaint: Chest Pain Narrative: 88 y/o M presents here with chest pain with PMH of AFib on Xarelto, HTN, hypothyroidism, osteoarthritis, and a non-pressure chronic ulcer of L foot (has since resolved but required multiple surgeries/interventions). Patient presented here from home via private vehicle for further evaluation of chest discomfort. Patient describes the chest discomfort as a tightness, with radiation into his jaw described as achy but not painful, and constant. Patient was working in a garden and using bolt cutters at the time of the discomfort's onset, states he was not really exerting himself. Spontaneously resolved while he was on the way to the Emergency Department and had lasted 20-20 mins. Denies SOB, diaphoresis, GERD-like symptoms, nausea, no palpitations or tachycardia. Patient however has hx of AFib and does not feel when he flips into that rhythm or when his HR is tachycardiac. Patient had minor chest tightness with radiation into his jaw around the time he was being transferred from the ED to the inpatient floor, occurred at rest, lasted a few minutes (less than 10 mins), but spontaneously resolved. No previous hx of MS or CAD. Last stress test was a few years ago, no abnormalities. Initial VS at presentation: 97.6? F, HR 78, R 16, 146/97, and 96% on RA. ED workup showed: No leukocytosis, no anemia, INR 1.2, creatinine 0.9 with GFR of >60, glucose 118, and initial troponin negative. CXR showed no focal consolidation or pleural effusion, cardiomediastinal silhouette stable, clear lungs. Review of Systems Review of Systems: All systems reviewed & are unremarkable except as noted in HPI and below PMFSH Past Medical History Medical History Anticoagulant long-term use Atrial fibrillation Callus of foot Hypertension Hypothyroidism Neuropathy Non-pressure chronic ulcer of other part of left foot with fat layer exposed Osteoarthritis Surgical History Surgical History H/O left inguinal hernia repair lih repair w mesh davinci assisted 12/03/20 History of appendectomy 1970 History of foot surgery Family History Family History Mother Family history of malignant neoplasm, Onset Age: 62 Sibling Family history of malignant neoplasm, Onset Age: 45 Father Family history of cardiovascular disease Social History Social History Smoking status: Never smoker Alcohol intake: never Substance use: never Do You Feel Safe in your Home?: Yes Lack of Transportation: No Lack of Food: Never True Current Housing: I Have Housing Concerned About Future Housing: No Difficulty Paying Gas/Electric Bills: No Difficulty Paying for Meds: No Currently Unemployed: No Education: Master's Degree or Higher Difficulty w/ Childcare or Family Care: No Living arrangements: with family 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ended release 24 hr rivaroxaban 20 mg tablet (Xarelto) 20 mg PO QPM 01/22/19 05/25/23 History levothyroxine 75 mcg tablet 75 mcg PO DAILY #90 tabs 11/18/22 05/25/23 Rx Allergies Allergy/AdvReac Type Severity Reaction Status Date / Time No Known Allergies Allergy Unknown Verified 05/25/23 10:51 Vital Signs Vital Signs - 24 hr 05/25/23 10:45 05/25/23 10:49 05/25/23 11:00 Temperature 97.6 F Pulse Rate 78 77 Respiratory Rate 16 Blood Pressure 146/97 H Pulse Oximetry 96 97 Oxygen De
--- NOTE | 2023-05-25 13:17 | ECG_ITS ---
Measurements Intervals [place] Rate: 73 P: * [place]: * QRS: 9 QRSD: 88 T: 35 QT: 372 Avg RR 814 QTc: 398 QTcB 412 QTcF 398 Interpretive Statements ATRIAL FIBRILLATION POSSIBLE ANTERIOR MYOCARDIAL INFARCT, PROBABLY OLD [30 ms Q WAVE IN V3/V4 OR R <0.2 mV IN V4] ABNORMAL RHYTHM ECG SEE SCANNED COPY FOR SIGNATURE MTDD
--- NOTE | 2023-05-25 13:56 | ADMGEN ---
This patient, Raheem Rome, was admitted to IMU Room 213-01. Patient/family oriented to hospital policies and general routines including ID bracelet, bed and alarms, visiting hours, pain management, procedures, bathroom and other care routines, personal items, smoking policy, room service/diet, and visiting hours. Information on how to activate the Rapid Response Team has been discussed. Patient/Family are encouraged to report perceived risks to care and to ask questions if they do not understand what they are told or what they should do.
[2023-05-25 15:25] LABS: Troponin I < 0.012 ng/mL (0.000-0.034)
--- NOTE | 2023-05-25 16:17 | PM.CNCAR ---
Assessment and Plan Assessment and plan (1) Chest pain: Code(s): R07.9 - Chest pain, unspecified Status: Acute Assessment and Plan: Troponins negative. EKG without ischemic changes (although cannot compare to old EKGs as our EKG system is down and cannot see old EKGs). Currently chest pain free. Will obtain Lexiscan 05/25. Patient to be NPO at midnight. If MPI is negative, can be discharged home tomorrow. (2) Atrial fibrillation: Qualifiers: Atrial fibrillation type: persistent (not longstanding) Qualified Code(s): I48.19 - Other persistent atrial fibrillation Code(s): I48.91 - Unspecified atrial fibrillation Status: Acute Assessment and Plan: Rate controlled AFIB. Continue Toprol. Hold Xarelto for now in case invasive procedures are needed. (3) Benign essential hypertension: Code(s): I10 - Essential (primary) hypertension Status: Acute Assessment and Plan: Stable. Continue Toprol. (4) Hypothyroidism (acquired): Code(s): E03.9 - Hypothyroidism, unspecified Status: Acute Assessment and Plan: Continue Levothyroxine. Plan Recommendations and plan discussed with Hospitalist. History of Present Illness History of Present Illness Consult date/time: 05/25/23 16:17 Requesting physician: Shorty Martinez MD Consult reason: chest pain Reason For Visit: Chest Pain Narrative: We are consulted for chest pain. This is an 88 year old patient of Dr. Crain's with atrial fibrillation, hypertension, hypothyroidism who presented with chest pain. He was cutting metal rods with a bull cutter and developed substernal chest pain with radiation to his neck. Pain lasted for about 20-25 mintues before resolving. Patient had a mild recurrence of the same pain while in the ER. He is currently chest pain free. Patient states this was not a strenuous activity for him. EKGs show rate controlled AFIB, no ischemic changes. Cannot compare to old EKGs as our EKG system is completely down and cannot see old EKGs. Troponins are thus far negative x 2. Last dose of Xarelto was 4/9 PM. Had MPI in 2021 that was negative. Review of Systems Review of Systems: All systems reviewed & are unremarkable except as noted in HPI and below (HPI) [facility] Past Medical History Medical History Anticoagulant long-term use Atrial fibrillation Callus of foot Hypertension Hypothyroidism Neuropathy Non-pressure chronic ulcer of other part of left foot with fat layer exposed Osteoarthritis Surgical History Surgical History H/O left inguinal hernia repair lih repair w mesh davinci assisted 12/03/20 History of appendectomy 1970 History of foot surgery Family History Family History Mother Family history of malignant neoplasm, Onset Age: 62 Sibling Family history of malignant neoplasm, Onset Age: 45 Father Family history of cardiovascular disease Social History Social History Smoking status: Never smoker Alcohol intake: never Substance use: never Do You Feel Safe in your Home?: Yes Lack of Transportation: No Lack of Food: Never True Current Housing: I Have Housing Concerned About Future Housing: No Difficulty Paying Gas/Electric Bills: No Difficulty Paying for Meds: No Currently Unemployed: No Education: Master's Degree or Higher Difficulty w/ Childcare or Family Care: No Living arrangements: with family 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
--- NOTE | 2023-05-25 19:36 | PC.NURSE ---
RN to room to have pt sign consent. While talking to pt, pt informed RN that he had taken his home dose of Xeralto out of his home medication box. QUIRINO Mas notified of this. No new orders. RN will notify Cardiology of pt taking medication.
[2023-05-25 20:05] LABS: Troponin I < 0.012 ng/mL (0.000-0.034)
[2023-05-25] MEDS: SODIUM CHLORIDE 5% OPHTH OINT 3.5 GM TUBE 1 APPLIC EACH EYE (21:22)
[2023-05-26] VITALS (12 sets, daily range): BP systolic 118–138; BP diastolic 67–75; PULSE 57–76; RESP 15–20; TEMP 36.1–36.4; O2SAT 95–98
--- NOTE | 2023-05-26 | EST_ITS ---
Patient Info Name: Raheem Rome Age: 88 years : 1935 Gender: Male Ht: 70 in Wt: 186 lbs BSA: 2.05 m2 HR: 58 bpm BP: 139 / 90 mmHg Heart Rhythm: Sinus Rhythm Exam Date: 05/26/2023 11:09 AM Exam Location: Echo Lab Patient Status: Outpatient Admit Date: 05/25/2023 Staff Ordering Physician: Yakov Cortes MD Attending Provider: Carlito Gann DO Exercise Technologist: Edwige Hays CT Nurse: Nat Jones APN Exam Type: CA stress leidy w NM Study Info Indications R07.89 - Other chest pain A regadenoson stress test was performed. Summary 1. Atrial fibrillation. 2. No ST or T-wave abnormalities following Lexiscan injection. 3. Clinically and electrocardiographically unremarkable Lexiscan stress test. 4. Myocardial perfusion imaging exam to be dictated by the Radiology Department. Protocol: Lexiscan Stress ECG Details Stage: REST Duration (min): 0 min : 55 sec HR (bpm): 56 SBP (mmHg): 139 DBP (mmHg): 90 Stage: REST Duration (min): 14 min : 46 sec HR (bpm): 57 SBP (mmHg): 139 DBP (mmHg): 90 Stage: STAGE 1 Duration (min): 1 min : 0 sec HR (bpm): 74 SBP (mmHg): 137 DBP (mmHg): 87 Stage: RECOVERY Duration (min): 1 min : 0 sec HR (bpm): 81 SBP (mmHg): 137 DBP (mmHg): 87 Stage: RECOVERY Duration (min): 2 min : 0 sec HR (bpm): 76 SBP (mmHg): 137 DBP (mmHg): 87 Stage: RECOVERY Duration (min): 3 min : 0 sec HR (bpm): 76 SBP (mmHg): 133 DBP (mmHg): 83 Stage: RECOVERY Duration (min): 3 min : 18 sec HR (bpm): 65 SBP (mmHg): 133 DBP (mmHg): 83 Rest HR: 57 bpm Peak HR: 89 bpm Rest Sys BP: 139 mmHg Peak Sys BP: 137 mmHg Max Pred HR: 132 bpm % Max Pred HR: 67 % Target HR: 112 bpm Max RPP: 12,193 bpm*mmHg Total Time: 1 min : 0 sec Rest Mariscal BP: 90 mmHg Peak Mariscal BP: 87 mmHg Total Dose: 0.4 mg Resting ECG Atrial fibrillation. Stress ECG No ST or T-wave abnormalities following Lexiscan injection. Report Signatures
[2023-05-26 04:47] LABS: Basophils Percent Auto 0.5 % (0.2-1.2); Eosinophils Absolute Auto 0.2 K/mm3 (0-0.3); Eosinophils Percent Auto 2.5 % (0-4.4); Hematocrit 42.1 % (42.0-52.0); Hemoglobin 13.6 g/dL (14.0-18.0); Immature Granulocyte Absolute 0.02 K/mm3 (0.00-0.031); Immature Granulocyte Percent A 0.3 % (0-0.5); Lymphocytes Absolute Auto 1.53 K/mm3 (0.9-3.2); Lymphocytes Percent Auto 25.6 % (18.3-44.2); Mean Corpuscular HGB Conc 32.3 g/dl (32-36); Mean Corpuscular Hemoglobin 32.9 pg (26-34); Mean Corpuscular Volume 101.9 fl (80-100); Monocytes Absolute Auto 0.8 K/mm3 (0.1-0.6); Monocytes Percent Auto 13.2 % (2.6-8.5); Neutrophils Absolute Auto 3.5 K/mm3 (1.3-6.7); Neutrophils Percent Auto 57.9 % (45.5-73.1); Platelet Count Result 141 k/mm3 (150-375); Red Blood Count 4.13 M/mm3 (4.6-6.20); Red Cell Distribution Width 13.9 % (11.5-14.5)
[2023-05-26 04:57] LABS: Hemoglobin A1C 5.8 % (<5.7)
[2023-05-26 05:04] LABS: Anion Gap 1 mmol/L (4-12); Blood Urea Nitrogen 28 mg/dL (9-20); Calcium 8.4 mg/dL (8.4-10.2); Carbon Dioxide 31 mmol/L (22-30); Chloride 105 mmol/L (98-107); Cholesterol 96 mg/dL (0-200); Estimated CRCL calculation 51 ml/min; Estimated Glomerular Filt Rate > 60; Glucose 95 mg/dL (65-110); HDL Direct 29 mg/dL; Potassium 4.3 mmol/L (3.4-5.0); Sodium 137 mmol/L (137-145); Triglycerides 71 mg/dL (<150)
[2023-05-26 05:15] LABS: LDL Cholesterol Direct 66 mg/dL
[2023-05-26] MEDS: LEVOTHYROXINE SODIUM 75 MCG TABLET PO (06:24)
[2023-05-26] MEDS: ASPIRIN 81 MG CHEWABLE TABLET PO (09:31)
[2023-05-26] MEDS: METOPROLOL SUCCINATE EXT REL 50 MG TABCR PO (09:32)
--- NOTE | 2023-05-26 11:51 | PM.PNCARD ---
Progress Note: A&P Assessment and Plan (1) Chest pain: Code(s): R07.9 - Chest pain, unspecified Status: Acute Assessment and Plan: Troponins negative. EKG without ischemic changes (although cannot compare to old EKGs as our EKG system is down and cannot see old EKGs). Currently chest pain free. Awaiting results of lexiscan performed this morning. If negative, he can be discharged. (2) Atrial fibrillation: Qualifiers: Atrial fibrillation type: persistent (not longstanding) Qualified Code(s): I48.19 - Other persistent atrial fibrillation Code(s): I48.91 - Unspecified atrial fibrillation Status: Acute Assessment and Plan: Rate controlled AFIB. Continue Toprol. Hold Xarelto for now in case invasive procedures are needed. (3) Benign essential hypertension: Code(s): I10 - Essential (primary) hypertension Status: Acute Assessment and Plan: Stable. Continue Toprol. (4) Hypothyroidism (acquired): Code(s): E03.9 - Hypothyroidism, unspecified Status: Acute Assessment and Plan: Continue Levothyroxine. Subjective Date/time seen: 05/26/23 11:51 Interval history: Cardiology follow up for chest pain Date of service 05/26/2023: He is feeling well this morning and has no complaints. Chest tightness has resolved. I am seeing him in the cardiac stress lab at the time of lexiscan. Had some mild shortness of breath that resolved in the recovery period following regadenoson administration. Review of Systems Review of Systems: All systems reviewed & are unremarkable except as noted in HPI and below Exam Const: General: comfortable and no acute distress HENMT: Mouth: Yes moist mucous membranes Eyes: General: appearance normal, both eyes and all related structures Sclera: sclerae normal Chest: Other: No reproducible chest wall tenderness Resp: Effort & Inspection: normal respiratory effort Cardio: Rate: regular rate Rhythm: abnormal rhythm irregularly irregular Heart sounds: no murmurs Skin: General skin exam: normal color Neuro: Speech: normal speech Extrem: Other: No edema Psych: Mental Status: mental status grossly normal Affect: normal affect Objective Data Vital Signs Vital Signs: Vital Signs - 24 hr 05/25/23 11:57 05/25/23 12:50 05/25/23 13:13 Temperature 36.6 C Pulse Rate 71 70 64 Respiratory Rate 15 24 H 22 H Blood Pressure 134/77 117/70 107/72 Pulse Oximetry 97 99 94 Oxygen Delivery 05/25/23 13:13 05/25/23 13:47 05/25/23 13:47 Temperature 36.4 C L Pulse Rate 64 66 Respiratory Rate 19 18 Blood Pressure 107/72 128/79 Pulse Oximetry 91 97 96 Oxygen Delivery Room Air 05/25/23 14:00 05/25/23 16:00 05/25/23 16:00 Temperature Pulse Rate 69 63 Respiratory Rate Blood Pressure Pulse Oximetry 96 Oxygen Delivery Room Air 05/25/23 18:00 05/25/23 16:00 05/25/23 20:00 Temperature 36.8 C 36.4 C L Pulse Rate 58 L 74 65 Respiratory Rate 17 16 Blood Pressure 134/67 135/69 Pulse Oximetry 97 97 Oxygen Delivery 05/25/23 20:00 05/25/23 22:00 05/25/23 20:00 Temperature Pulse Rate 61 77 Respiratory Rate Blood Pressure Pulse Oximetry Oxygen Delivery Room Air 05/25/23 23:40 05/26/23 00:00 05/26/23 00:00 Temperature 36.2 C L Pulse Rate 65 70 Respiratory Rate 16 Blood Pressure 119/72 Pulse Oximetry 96 Oxygen Delivery Room Air 05/26/23 02:00 05/26/23 04:00 05/26/23 04:00 Temperature 36.1 C L Pulse Rate 57 L 57 L Respiratory Rate 15 Blood Pressure 122/74 Pulse Oximetry 95 Oxygen Delivery Room Air 05/26/23 04:00 05/26/23 06:00 05/26/23 08:18 Temperature Pulse Rate 58 L 57 L Respiratory Rate Blood Pressure Pulse Oximetry 96 Oxygen Delivery Room Air 05/26/23 08:00 05/26/23 09:32 Temperature 36.4 C Pulse Rate 65 75 Respiratory Rate 16 Blood Pressure 129/68 Pulse Oxi
--- NOTE | 2023-05-26 16:27 | PM.DS ---
DS: Admitting Diagnosis Discharge Date 05/26/23 Admitting Diagnosis Chest pain DS: Discharge Diagnosis Discharge Diagnosis (1) Chest pain: Code(s): R07.9 - Chest pain, unspecified Status: Acute (2) Chronic atrial fibrillation, unspecified: Code(s): I48.20 - Chronic atrial fibrillation, unspecified Status: Chronic (3) Benign essential hypertension: Code(s): I10 - Essential (primary) hypertension Status: Acute DS: Summary Hospital Course Reason for hospitalization: 88yo male with AFib and HTN here for chest pain. Please see H&P for details. Hospital Course: EKG showed AFib which is chronic for him as well as possible anterior myocardial infarction. Chest x-ray was clear. Labs were unrevealing. His A1c was 5.8. Triglyceride 71 with cholesterol 96 LDL 66. HDL was 29. TSH was normal. Did not have significant anemia but did have macrocytosis noted. Defer to the care doctor about further evaluation such as B12 and folate levels. Troponins are negative x3. Cardiology was consulted. Lexiscan stress test was performed which showed normal myocardial perfusion at rest and during stress. He did have some diaphragmatic attenuation artifact on the imaging obtained in the supine position which normalized with prone position. EF was greater than 70%. His symptoms resolved. He was able to be discharged home on 05/26/23. Status at Discharge Cognitive/behavioral status at discharge: stable Time Spent with Patient Time attestation: Total time spent providing and/or coordinating discharge services: 32 minutes Time spent: Greater than 30 minutes Exam Narrative: AF 96.9 118/67 75 20 96% ra Gen - NARD Chest - CTA bilaterally, nml RR CV - RRR S1/S2 Abd - Soft, NT/ND, Positive BS Ext - No pedal edema Neuro - Alert and oriented. Nonfocal exam. Psych - Nml mood and affect Skin - Warm and dry DS: Data Data Completed and Pending Labs on day of discharge: Labs from last 24 hours 05/26/23 05/25/23 04:37 19:03 WBC 6.0 RBC 4.13 L Hgb 13.6 L Hct 42.1 MCV 101.9 H MCH 32.9 MCHC 32.3 RDW 13.9 Plt Count 141 L MPV 10.0 Immature Gran % (Auto) 0.3 Neut % (Auto) 57.9 Lymph % (Auto) 25.6 Lares % (Auto) 13.2 H Eos % (Auto) 2.5 Baso % (Auto) 0.5 Lymph # (Auto) 1.53 Lares # (Auto) 0.8 H Eos # (Auto) 0.2 Baso # (Auto) 0.0 Abs Immat Gran (auto) 0.02 Absolute Neuts (auto) 3.5 Absolute Nucleated RBC 0.000 Nucleated RBC % 0.0 Sodium 137 Potassium 4.3 Chloride 105 Carbon Dioxide 31 H Anion Gap 1 L BUN 28 H Creatinine 0.90 Estim Creat Clear Calc 51 Estimated GFR > 60 Glucose 95 Hemoglobin A1c 5.8 H Calcium 8.4 Troponin I < 0.012 Triglycerides 71 Cholesterol 96 LDL Cholesterol Direct 66 HDL Direct 29 TSH (Reflex) 3.850 Discharge Plan Discharge Attending physician on discharge: John Garcia Consulting providers: Yakov Cortes Discharging Clinician: John Garcia Anticipated Discharge Date/Time: 05/26/23 16:38 Patient Disposition: Home, Self-Care Activity: as tolerated Diet: heart healthy Discharge Instructions: Take precautions to avoid falls. Rise slowly from a lying or sitting position. Pause before standing or walking. Contact your doctor or call 911 and come to the Emergency Room if you have recurrent chest pain//pressure or other worrisome symptoms. Avoid NSAIDs (ibuprofen, naproxen, Aleve). Tylenol is safe to take. Follow-up with your primary care provider in 1-2 weeks. Please call for appointment. Thank you for using [facility] for your health care needs. Patient Instructions: Antibiotic Form Stand Alone Forms: General Discharge Information Follow-up/Referrals: Nick Flores, [Primary Care Provider] - Discharge Medications: Continued metoprolol succinate 50 mg Tablet Extended Release 24 Hr 50 mg PO D
[2023-05-26] MEDS: RIVAROXABAN 20 MG TABLET PO (16:50)
== END 2023-05-26 17:17 | disposition home or self-care (01) ==
LOC: ANHED 11:11 → ANHIMU 13:45
PROVIDERS: Student in an Organized Health Care Education/Training Program; Admitting Provider Student in an Organized Health Care Education/Training Program; Emergency Provider Emergency Medicine; PCP Family Medicine; Visit Provider Internal Medicine
DX: R07.9 Chest pain, unspecified (principal); I48.19 Other persistent atrial fibrillation; I10 Essential (primary) hypertension; E03.9 Hypothyroidism, unspecified; R94.31 Abnormal electrocardiogram [ECG] [EKG]; G62.9 Polyneuropathy, unspecified; M19.90 Unspecified osteoarthritis, unspecified site; Z79.01 Long term (current) use of anticoagulants; Z79.899 Other long term (current) drug therapy
CPT/HCPCS: 36415; 71045; 78452; 80048; 80053; 80061; 83036; 83690; 84443; 84484; 85025; 85610; 85730; 93005; 93017; 99285; A9270; A9502; G0378; J2785

== ENCOUNTER 2023-09-27 09:03 | Outpatient (CLI) | payer MEDICARE, SELFPAY ==
--- NOTE | ~2023-09-27 | XR_ITS ---
EXAMINATION: XR knee LT min 4V DATE: 09/27/2023 09:17 INDICATION: Medial left knee pain. TECHNIQUE: 4 views of left knee including standing views were obtained. COMPARISON: None. FINDINGS: Bone alignment is normal. No fracture. There is moderate osteoarthritis of medial compartme nt and mild osteoarthritis of lateral and patellofemoral compartments. There is a small knee joint ef fusion. IMPRESSION: 1. Moderate left knee osteoarthritis. 2. Small left knee joint effusion. Reviewed, dictated and finalized at location A.
== END 2023-09-27 09:04 ==
PROVIDERS: PCP Family Medicine; Visit Provider Family Medicine
DX: M17.12 Unilateral primary osteoarthritis, left knee (principal); M25.462 Effusion, left knee
CPT/HCPCS: 73564

== ENCOUNTER 2024-03-13 19:36 | Emergency (ER) | payer MEDICARE, SELFPAY ==
--- OUTSIDE RECORDS SUMMARY | 2024-03-13 19:38 | XMS_ITS | Encounter Summary ---
Author Organization [facility] Address [address] [place] [address] Care Team Providers Care Joist Setter Name Role Phone Raheem Shane MD Primary Care Provider [phone] Nick Flores DO Primary Care Provider [phone] Encounter Details Date Type Department Care Team (Late st Contact Info) Description 09/29/2023 Lab Requisition [facility] - DermPath Lab [address] [place] [address] Edmund Navarrete MD [address] [place] [address] Social History Tobacco Use Types Packs/Day Years Used Date Smoking Tobacco: Never Smokeless Tobacco: Never Alcohol Use Standard Drinks/Week Comments No 0 (1 standard drink = 0.6 oz pur e alcohol) Sex and Gender Information Value Date Recorded Sex Assigned at Not on file Gender Identity Not on file Sexual Orientation Not on file documented as of this encounter Plan of Treatment Not on file documented as of this encounter Procedures Procedure Name Priority Date/Time Associated Diagnosis Comments DERMATOPATHOLOGY Routine 09/27/2023 12:0 0 AM CDT documented in this encounter Results * DERMATOPATHOLOGY (09/27/2023 12:00 AM CDT) Case Report Dermatopathology Report ? Case: [id number] ? Authorizing Provider: ??Edmund Navarrete, ?Collected: ? 09/27/2023 12:00 AM ? Ordering Location: ? [facility] - ??Received: ?09/29/2023 09:58 AM ? DermPath Lab ? Pathologist: ? Kathy Hartley, MD ? Specimens: ?? A) - Skin, right upper cutaneous lip ? B) - Skin, midline lumbar back ? C) - Skin, midline mid nose ? 1:24 PM [facility] Final Diagnosis Specimen A. 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 SKIN, midline mid nose: BASAL CELL CARCINOMA, NODULAR TYPE (C44.311) 1:24 PM [facility] DERMATOPATHOLOGY LABORATORY Clinical History A-B: R/o ISK, SCC vs BCC C: R/O BCC, SCC, alondra 1:24 PM [facility] Gross Description Specimen A: Received is one formalin filled container labeled with the patient's name and designated right upper cutaneous lip. The specimen consists of a shave biopsy measuring 2x2x1 mm. Jar 0. Specimen B: Received is one formalin filled container labeled with the patient's name and designated midline lumbar back. The specimen consists of a shave biopsy measuring 22a25m5 mm. Jar 0. Specimen C: Received is one formalin filled container labeled with the patient's name and designated midline mid nose. The specimen consists of a shave biopsy measuring 9x8x2 mm. Jar 0. 1:24 PM [facility] Microscopic Description Specimen A. SKIN, right upper cutaneous lip: The epidermis is unremarkable. The dermis shows a proliferation of elastic fibers in the superficial dermis that are increased in thickness. Tumor is not seen. Specimen B. SKIN, midline lumbar back: Within the dermis there are aggregates of basaloid cells with a high nuclear to cytoplasmic ratio and peripheral palisading. Specimen C. SKIN, midline mid nose: Within the dermis there are aggregates of basaloid cells with a high nuclear to cytoplasmic ratio and peripheral palisading. 1:24 PM [facility] Disclaimer An external and internal positive and negative controls are appropriate for the histochemical, immunohistochemical and immunofluorescence stain(s) in this case (if any), except where stated explicitly. The performance characteristics of the stain(s) cited in this report were developed and its performance characteristic determined by the Dermatopathology Laboratory at [facility], directed by Dr. Errol Hartley. These tests need not be, and therefore are not, approved by the [place] Food and Drug Administration. The tests are used for clinical purposes. Billing Codes Specimen Charges Stain Charges 09570 [id number] 1 1 1 4 1:24 PM CDT DERMATOPATHOLOGY LABORATORY Embedded Images 4 1:24 PM CDT DERMATOPATHOLOGY LABORATORY Pathology/Cytology TISSUE SPECIMEN FROM SKIN / Unknown 09/27/2023 09/29/2023 9:58 AM CDT Miscellaneous samples (specimen) TISSUE SPECIMEN FROM SKIN / Unknown 09/27/2023 09/29/2023 9:58 AM CDT Miscellaneous samples (specimen) TISSUE SPECIMEN FROM SKIN / Unknown 09/27/2023 09/29/2023 9:58 AM CDT Edmund Navarrete MD LAB - PATHOLOGY/CYTO LOGY ORDERABLES Performing Organization Address City/State/[facility] Co de Phone Number DERMATOPATHOLOGY LABORATORY [facility] - Department of Dermatology [facility] Medicine [address] [place] [address], [address] [phone] documented in this encounter Visit Diagnoses Not on filedocumented in this encounter Care Teams Joist Setter Relationship Specialty Start Date End Date Raheem Shane MD [address] [place] [address] PCP - General 01/14/16 11/27/23 Nick Flores DO [address] [place] [id number] PCP - General Family Medicine 11/28/23 documented as of this encounter
--- OUTSIDE RECORDS SUMMARY | 2024-03-13 19:38 | XMS_ITS | Encounter Summary ---
Author Organization [facility] Address [address] [facility] [place] [address] Care Team Providers Care Endoscopy Registered Nurse Name Role Phone Raheem Shane MD Primary Care Provider [phone] Nick Flores DO Primary Care Provider [phone] Encounter Details Date Type Department Care Team (Late st Contact Info) Description 03/11/2022 Lab Requisition [facility] Derm[facility] Lab [address] [place] [address] Edmund Navarrete MD [address] [place] [address] Social History Tobacco Use Types Packs/Day Years [...] Priority Date/Time Associated Diagnosis Comments DERMATOPATHOLOGY Routine 03/10/2022 12:0 0 AM INTERN ARCHITECT documented in this encounter Results * DERMATOPATHOLOGY (03/10/2022 12:00 AM INTERN ARCHITECT) Case Report Dermatopathology Report ? Case: [id number] ? Authorizing Provider: ??Edmund Navarrete MD ?Collected: ? 03/10/2022 12:00 AM ? Ordering Location: ? [facility] DermPath Lab ?Received: ?03/11/2022 01:26 PM ? Pathologist: ? Ayla Wylie MD ? Specimen: ?Skin, right post ear ? 3 3:17 PM [facility] DERMATOPATHOLOGY LABORATORY Final Diagnosis Specimen A. SKIN, right post ear: SQUAMOUS CELL CARCINOMA IN SITU, VERRUCOUS-HYPERTROP HIC TYPE; PRESENT AT THE BASE OF THE SPECIMEN (D04.21) (see microscopic description and comment) 3 3:17 PM [facility] DERMATOPATHOLOGY LABORATORY Clinical History R/O SCC 3 3:17 PM [facility] DERMATOPATHOLOGY LABORATORY Gross Description Specimen A: Received is one formalin filled container labeled with the patient's name and designated right post ear. The specimen consists of a shave biopsy measuring 6x6x5, 7x4x1 mm. Jar 0. 3 3:17 PM [facility] DERMATOPATHOLOGY LABORATORY Microscopic Description Specimen A. SKIN, right post ear: The epidermis is acanthotic and shows full thickness disorderly maturation of keratinocytes, mitoses at different levels, and dyskeratotic cells. There is overlying parakeratosis and hyperkeratosis. The lesion extends to the base of the biopsy. Additional deeper sections were obtained and reviewed. COMMENT: An invasive squamous cell carcinoma cannot be ruled out. 3 3:17 PM [facility] DERMATOPATHOLOGY LABORATORY Disclaimer An external and internal positive and negative controls are appropriate for the histochemical, immunohistochemical and immunofluorescence stain(s) in this case (if any), except where stated explicitly. The performance characteristics of the stain(s) cited in this report were developed and its performance characteristic determined by the Dermatopathology Laboratory at [facility], directed by Dr. Errol Hartley. These tests need not be, and therefore are not, approved by the [place] Food and Drug Administration. The tests are used for clinical purposes. Billing Codes Specimen Charges Stain Charges 56276 1 3 3:17 PM [facility] DERMATOPATHOLOGY LABORATORY Embedded Images 3 3:17 PM [facility] DERMATOPATHOLOGY LABORATORY Pathology/Cytolog y TISSUE SPECIMEN FROM SKIN / Unknown 03/10/2022 03/11/2022 1:26 PM INTERN ARCHITECT Edmund Navarrete MD LAB - PATHOLOGY/CYTO LOGY ORDERABLES DERMATOPATHOLOGY LABORATORY [facility] - Department of Dermatology [address], [address] [phone] documented in this encounter Visit Diagnoses Not on filedocumented in this encounter Care Teams Endoscopy Registered Nurse Relationship Specialty Start Date End Date Raheem Shane MD [address] [place] [address] PCP - General 01/14/16 11/27/23 Nick Flores DO [address] [place] [phone] PCP - General Family Medicine 11/28/23 documented as of this encounter
--- OUTSIDE RECORDS SUMMARY | 2024-03-13 19:38 | XMS_ITS | Clinical Summary ---
Author Organization [facility] Address [address] [place] [address] Care Team Providers Care Hoop Flaring Machine Operator Helper Name Role Phone Nick Flores DO Primary Care Provider [phone] Source Comments [facility],non-owned Affiliates and Associated Physician Practices is amultiple site organization consisting of ambulatory clinics and hospital sitesin [place], [place], [place] and [place]. This disclosure is being madepursuant to the Care Everywhere program and may not contain all information available regarding this patient. Last updated 17.[facility] Allergies No known active allergies Medications * Be aware that medications may not be up to date on this document. Alwaysverify current medications with the patient. Medication Sig Dispensed Refills Start Date End Date Status levothyroxine (SYNTHROID) 25 MCG tablet Take by mouth DAILY. 02/03/2016 Active Rivaroxaban (XARELTO PO) Take 20 mg by mouth once daily Active metoprolol succinate XL 24hr (TOPROL XL) 50 MG tablet Take 50 mg by mouth once daily 06/02/2020 Active Active Problems Problem Noted Date Diagnosed Date Nonrheumatic mitral valve regurgitation 10/13/19 23 Encounters Date Type Department Care Team Description 01/17/2024 1:30 PM HELICOPTER MECHANIC Office Visit [facility] - Dermatology [address] [place] [address] Personal history of skin cancer (Primary Dx) 01/17/2024 Travel from Last 3 Months Family History Medical History Relation Name Comments Allergy (Severe) Neg Hx CVA Neg Hx Cancer Neg Hx Cancer - Breast Neg Hx Cancer - Skin, Melanoma Neg Hx Cancer - Skin, Non Melanoma Neg Hx Eczema Neg Hx Hemophilia Neg Hx Psoriasis Neg Hx Rashes/Skin Problems Neg Hx Social History Tobacco Use Types Packs/Day Years Used Date Smoking Tobacco: Never Smokeless Tobacco: Never Alcohol Use Standard Drinks/Week Comments No 0 (1 standard drink = 0.6 oz pur e alcohol) Sex and Gender Information Value Date Recorded Sex Assigned at Not on file Gender Identity Not on file Sexual Orientation Not on file Last Filed Vital Signs Vital Sign Reading Time Taken Comments Blood Pressure 134/80 11/21/2020 12:02 PM CDT Pulse 59 11/21/2020 12:02 PM CDT Temperature - - Respiratory Rate - - Oxygen Saturation 98% 04/06/2016 10:32 AM HELICOPTER MECHANIC Inhaled Oxygen Concentration - - Weight 82.6 kg (182 lb) 11/21/2020 9:08 AM CDT Height 179.1 cm (5' 10.5 ) 11/21/2020 9:08 AM CD T Body Mass Index 25.75 11/21/2020 9:08 AM CDT Plan of Treatment Health Maintenance Due Date Last Done Comments DTAP/TDAP/TD VACCINES (1 - Tdap) 1954 PNEUMOCOCCAL VACCINE 50+ (1 of 1 - PCV) 1985 ZOSTER VACCINE (1 of 2) 1985 Respiratory Syncytial Virus (RSV) Vaccine Pt: or over 60 yrs (1 - 1-dose 75+ series) 2010 COVID-19 VACCINE (2023-2 5 season) 2023 INFLUENZA VACCINE (#1) 2023 DEPRESSION SCREENING 02/15/2024 MEDICARE AWV ? CALENDAR YEAR 2024 HEPATITIS B VACCINE Aged Out No longe r eligible based on patient's age to complete this topic HIB VACCINE Aged Out No longer eligi ble based on patient's age to complete this topic HPV VACCINE Aged Out No longer eligi ble based on patient's age to complete this topic MENINGOCOCCAL (Group B) VACCINE Aged Out No longer eligible based on patient's age to complete this topic MENINGOCOCCAL VACCINE Aged Out No wing jose eligible based on patient's age to complete this topic Care Teams Hoop Flaring Machine Operator Helper Relationship Specialty Start Date End Date Nick Flores DO [address] [place] [phone] PCP - General Family Medicine 11/28/23
--- OUTSIDE RECORDS SUMMARY | 2024-03-13 19:38 | XMS_ITS | Encounter Summary ---
Author Organization [facility] Address [address] [facility] [place] [address] Care Team Providers Care Binding Cementer French Cord Name Role Phone Raheem Shane MD Primary Care Provider [phone] Nick Flores DO Primary Care Provider [phone] Encounter Details Date Type Department Care Team (Late st Contact Info) Description 08/23/2023 Lab Requisition [facility] - DermPath Lab [address] [facility] [place] [address] Edmund Navarrete MD [address] [place] [address] Social History Tobacco Use Types Packs/Day Years [...] Priority Date/Time Associated Diagnosis Comments DERMATOPATHOLOGY Routine 08/22/2023 12:0 0 AM CDT documented in this encounter Results * DERMATOPATHOLOGY (08/22/2023 12:00 AM CDT) Case Report Dermatopathology Report ? Case: [id number] ? Authorizing Provider: ??Edmund Navarrete, ?Collected: ? 08/22/2023 12:00 AM ? Ordering Location: ? [facility] - ??Received: ?08/23/2023 01:09 PM ? DermPath Lab ? Pathologist: ? Susana Brooks, ? MD ? Specimen: ?Skin, dorsal right thumb @ MCP joint ? 4 5:40 PM CDT DERMATOPATHOLOGY LABORATORY Final Diagnosis Specimen A. SKIN, dorsal right thumb @ MCP joint: SQUAMOUS CELL CARCINOMA, WELL DIFFERENTIATED (C44.622) 5:40 PM CDT DERMATOPATHOLOGY LABORATORY Clinical History R/O SCC, KA 5:40 PM CDT DERMATOPATHOLOGY LABORATORY Gross Description Specimen A: Received is one formalin filled container labeled with the patient's name and designated dorsal right thumb @ MCP joint. The specimen consists of a shave biopsy measuring 40y63s1 mm. Jar 0. 5:40 PM CDT DERMATOPATHOLOGY LABORATORY Microscopic Description Specimen A. SKIN, dorsal right thumb @ MCP joint: Arising in the epidermis and extending into the dermis there are irregularly shaped aggregates of keratinocytes showing evidence of premature cornification. 5:40 PM CDT DERMATOPATHOLOGY LABORATORY Disclaimer An external and internal positive and negative controls are appropriate for the histochemical, immunohistochemical and immunofluorescence stain(s) in this case (if any), except where stated explicitly. The performance characteristics of the stain(s) cited in this report were developed and its performance characteristic determined by the Dermatopathology Laboratory at [facility], directed by Dr. Errol Hartley. These tests need not be, and therefore are not, approved by the [place] Food and Drug Administration. The tests are used for clinical purposes. Billing Codes Specimen Charges Stain Charges 60644 1 5:40 PM CDT DERMATOPATHOLOGY LABORATORY Embedded Images 5:40 PM CDT DERMATOPATHOLOGY LABORATORY Pathology/Cytolog y TISSUE SPECIMEN FROM SKIN / Unknown 08/22/2023 08/23/2023 1:09 PM CDT Edmund Navarrete MD LAB - PATHOLOGY/CYTO LOGY ORDERABLES DERMATOPATHOLOGY LABORATORY [facility] - Department of Dermatology [address], [address] [phone] documented in this encounter Visit Diagnoses Not on filedocumented in this encounter Care Teams Binding Cementer French Cord Relationship Specialty Start Date End Date Raheem Shane MD [address] [place] [address] PCP - General 01/14/16 11/27/23 Nick Flores DO [address] [place] [phone] PCP - General Family Medicine 11/28/23 documented as of this encounter
--- OUTSIDE RECORDS SUMMARY | 2024-03-13 19:38 | XMS_ITS | Clinical Summary ---
Author Organization [facility] [address] [facility] [address] Address [address] [place] [address] Care Team Providers Care Pipe Jeeper Name Role Phone Nick Flores Primary Care Provider [phone] Allergies No known active allergies Medications levothyroxine (SYNTHROID) 75 mcg tablet 2 Active Xarelto 20 mg tablet TAKE 1 TABLET(20 MG) BY MOUTH DAILY 90 tablet 1 5 Active metoprolol XL (TOPROL-XL) 50 mg extended release tablet TAKE 1 TABLET(50 MG) BY MOUTH DAILY 90 tablet 1 5 Active Xarelto 20 mg tablet TAKE 1 TABLET(20 MG) BY MOUTH DAILY 90 tablet 1 4 03/06/19 25 Discontinued metoprolol XL (TOPROL-XL) 50 mg extended release tablet TAKE 1 TABLET(50 MG) BY MOUTH DAILY 90 tablet 1 4 03/06/19 25 Discontinued Active Problems Problem Noted Date Diagnosed Date Nonrheumatic mitral valve regurgitation 10/13/19 23 Other chest pain 11/23/2021 Chronic fatigue 11/23/2021 Chronic anticoagulation 12/12/2017 Atrial fibrillation (CMS/HCC) 10/31/2017 HTN (hypertension), benign 10/31/2017 Hypothyroidism (acquired) 10/31/2017 Nontraumatic rupture of tendons of foot and ankl e 11/15/2014 Overview (05/21/2016): Nontraumatic rupture of tendons of foot and ankle, right 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 Overview (05/21/2016): Acquired cavovarus foot deformity Nontraumatic rupture of tendon 09/30/2014 Overview (05/21/2016): Spontaneous rupture of tendon of ankle Perforating ulcer of the foot (CMS/HCC) 10/01/19 15 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 Encounters Date Type Department Care Team Description 02/02/2024 3:00 PM ADJUNCT COMMUNICATIONS FACULTY MEMBER Office Visit [facility] Cardiology [address] [place] [address] Yakov Cortes MD Longstanding persistent atrial fibrillation (CMS/HCC) (HCC) (Primary Dx); HTN (hypertension), benign; Chronic anticoagulation from Last 3 Months Surgical History Surgery Date Site/Laterality Comments APPENDECTOMY Appendectomy VASECTOMY Vasectomy OTHER SURGICAL HISTORY Incision of 1st metatarsal FOOT SURGERY Medical History Medical History Date Comments Neuropathy (CMS/HCC) Neuropathy; Comments: KSA 09/30/2014 - Hypercholesterolemia High choles terol; Comments: OKA 09/30/2014 - Hypertension Hypertension Atrial fibrillation (CMS/HCC) (HCC) Family History Medical History Relation Name Comments Heart disease Father Cancer Mother Cancer Sister 1 Relation Name Status Comments Father (Age 52) Mother (Age 62) Sister 1 (Age 65) Sister 2 Alive Sister 3 Alive Social History Tobacco Use Types Packs/Day Years Used Date Smoking Tobacco: Never Smokeless Tobacco: Never Tobacco Cessation:Counseling Given: Not Answered Alcohol Use Standard Drinks/Week Comments No 0 (1 standard drink = 0.6 oz pur e alcohol) Sex and Gender Information Value Date Recorded Sex Assigned at Not on file Legal Sex Male 3:46 AM ADJUNCT COMMUNICATIONS FACULTY MEMBER Gender Identity Not on file Sexual Orientation Not on file Obstetrics History Last Filed Vital Signs Vital Sign Reading Time Taken Comments Blood Pressure 144/80 02/02/2024 3:05 PM ADJUNCT COMMUNICATIONS FACULTY MEMBER Pulse 72 02/02/2024 3:05 PM ADJUNCT COMMUNICATIONS FACULTY MEMBER Temperature - - Respiratory Rate 18 11/26/2019 10:0 6 AM CDT Oxygen Saturation 93% 02/02/2024 3:05 PM ADJUNCT COMMUNICATIONS FACULTY MEMBER Inhaled Oxygen Concentration - - Weight 89.7 kg (197 lb 11.2 oz) 02/02/2024 3:05 PM ADJUNCT COMMUNICATIONS FACULTY MEMBER Height 177.8 cm (5' 10 ) 02/02/2024 3:05 PM ADJUNCT COMMUNICATIONS FACULTY MEMBER Body Mass Index 28.37 02/02/2024 3:05 PM ADJUNCT COMMUNICATIONS FACULTY MEMBER Plan of Treatment Health Maintenance Due Date Last Done Comments Depression Screening 1935 Hepatitis B Screening 1953 Zoster Vaccine (1 of 2) 1985 Well Visit 65+ 02/06/2000 Pneumococcal vaccine 65+ (2 of 2 - PPSV23 or PCV20) 12/30/2015 12/29/2014 DTaP/Tdap/Td Vaccine (2 - Td or Tdap) 12/25/2021 12/26/2011 Fall Risk Assessment 11/23/2022 11/23/2021 Influenza Vaccine (#1) 2023 8, 01/04/2017, 12/12/2015, Additional history exists Insurance [employer] MEDICARE Care Teams Pipe Jeeper Relationship Specialty Start Date End Date Nick Flores DO PCP - General Family Medicine 11/23/21
--- OUTSIDE RECORDS SUMMARY | 2024-03-13 19:38 | XMS_ITS | Encounter Summary ---
Author Organization [facility] Address [address] [facility] [place] [address] Care Team Providers Care Computer Technical Specialist Name Role Phone Raheem Shane MD Primary Care Provider [phone] Nick Flores DO Primary Care Provider [phone] Encounter Details Date Type Department Care Team (Late st Contact Info) Description 11/06/2020 Lab Requisition [facility] Care DermPath Lab [address] [facility] [address], [place] [address] Edmund Navarrete MD [address] [place] [address] Social History Tobacco Use Types [...] Priority Date/Time Associated Diagnosis Comments DERMATOPATHOLOGY Routine 11/04/2020 3:33 AM CDT documented in this encounter Results * DERMATOPATHOLOGY (11/04/2020 3:33 AM CDT) Case Report Dermatopathology Report ? Case: [id number] ? Authorizing Provider: ??Edmund Navarrete MD ?Collected: ? 11/04/2020 03:33 AM ? Ordering Location: ? [facility] DermPath Lab ?Received: ?11/06/2020 05:57 AM ? Pathologist: ? Ayla Wylie MD ? Specimen: ?Skin, left lower helix rim ? 1 2:59 PM CDT DERMATOPATHOLOGY LABORATORY Final Diagnosis Specimen A. SKIN, left lower helix rim: BASAL CELL CARCINOMA, INFILTRATIVE PATTERN (C44.219) 1 2:59 PM CDT DERMATOPATHOLOGY LABORATORY Clinical History R/O SCC, scar. 1 2:59 PM CDT DERMATOPATHOLOGY LABORATORY Gross Description Specimen A: Received is one formalin filled container labeled with the patient's name and designated left lower helix rim. The specimen consists of a shave biopsy measuring 4q1g9vj and 8i8x2xe. Jar 0. 1 2:59 PM CDT DERMATOPATHOLOGY LABORATORY Microscopic Description Specimen A. SKIN, left lower helix rim: Within the dermis there are nodular aggregates of basaloid cells associated with fibromyxoid stroma and epithelial-stromal clefts. At the advancing margin of the neoplasm, there are smaller angulated nests that infiltrate the dermis. 1 2:59 PM CDT DERMATOPATHOLOGY LABORATORY Disclaimer An external and internal positive and negative controls are appropriate for the histochemical, immunohistochemical and immunofluorescence stain(s) in this case (if any), except where stated explicitly. The performance characteristics of the stain(s) cited in this report were developed and its performance characteristic determined by the Dermatopathology Laboratory at [facility], directed by Dr. Errol Hartley. These tests need not be, and therefore are not, approved by the [place] Food and Drug Administration. The tests are used for clinical purposes. Billing Codes Specimen Charges Stain Charges 54978 1 1 2:59 PM CDT DERMATOPATHOLOGY LABORATORY Embedded Images 1 2:59 PM CDT DERMATOPATHOLOGY LABORATORY Pathology/Cytolo gy TISSUE SPECIMEN FROM SKIN / Unknown 11/04/2020 3:33 AM CDT 11/06/2020 5:57 AM CDT Edmund Navarrete MD LAB - PATHOLOGY/CYTO LOGY ORDERABLES DERMATOPATHOLOGY LABORATORY [facility] - Department of Dermatology [facility] Medicine [address] [place] [address], [address] [phone] documented in this encounter Visit Diagnoses Not on filedocumented in this encounter Care Teams Computer Technical Specialist Relationship Specialty Start Date End Date Raheem Shane MD [address] [place] [address] PCP - General 01/14/16 11/27/23 Nick Flores DO [address] [place] [phone] PCP - General Family Medicine 11/28/23 documented as of this encounter
--- OUTSIDE RECORDS SUMMARY | 2024-03-13 19:38 | XMS_ITS | Encounter Summary ---
Author Organization [facility] Address [address] [place] [address] Care Team Providers Care Doping Supervisor Name Role Phone Raheem Shane MD Primary Care Provider [phone] Nick Flores DO Primary Care Provider [phone] Encounter Details Date Type Department Care Team (Late st Contact Info) Description 2020 Lab Requisition [facility] Care DermPath Lab [address] [facility] [place] [address] Edmund Navarrete MD [address] [place] [address] Social History Tobacco Use Types [...] Priority Date/Time Associated Diagnosis Comments DERMATOPATHOLOGY Routine 02/04/2020 3:33 AM COMMUNITY HEALTH SPECIALIST documented in this encounter Results * DERMATOPATHOLOGY (02/04/2020 3:33 AM COMMUNITY HEALTH SPECIALIST) Case Report Dermatopathology Report ? Case: [id number] ? Authorizing Provider: ??Edmund Navarrete MD ?Collected: ? 02/04/2020 03:33 AM ? Ordering Location: ? [facility] DermPath Lab ?Received: ?2020 12:07 PM ? Pathologist: ? Isabelle Tyler MD ? Specimens: ?? A) - Skin, right frontal scalp ? B) - Skin, left helix rim ? 0 1:24 PM COMMUNITY HEALTH SPECIALIST DERMATOPATHOLOGY LABORATORY Final Diagnosis Specimen A. 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 SKIN, left helix rim: HYPERPLASTIC (HYPERTROPHIC) ACTINIC KERATOSIS (L57.0) 0 1:24 PM COMMUNITY HEALTH SPECIALIST DERMATOPATHOLOGY LABORATORY Clinical History A-B: R/O SCC, BCC. 0 1:24 PM COMMUNITY HEALTH SPECIALIST DERMATOPATHOLOGY LABORATORY Gross Description Specimen A: Received is one formalin filled container labeled with the patient's name and designated right frontal scalp. The specimen consists of a shave biopsy measuring 16l68m1nh. Jar 0. Specimen B: Received is one formalin filled container labeled with the patient's name and designated left helix rim. The specimen consists of a shave biopsy measuring 65p1f2kx. Jar 0. 0 1:24 PM COMMUNITY HEALTH SPECIALIST DERMATOPATHOLOGY LABORATORY Microscopic Description Specimen A. SKIN, right frontal scalp: There is hyperkeratosis alternating with parakeratosis. There is epidermal hyperplasia with disorderly maturation of keratinocytes with nuclear pleomorphism confined to the lower half of the epidermis and extending down the follicular infundibulum. The epidermis is focally eroded. Specimen B. SKIN, left helix rim: There is hyperkeratosis alternating with parakeratosis. There is epidermal hyperplasia with disorderly maturation of keratinocytes with nuclear pleomorphism confined to the lower half of the epidermis. 0 1:24 PM COMMUNITY HEALTH SPECIALIST DERMATOPATHOLOGY LABORATORY Disclaimer An external and internal positive and negative controls are appropriate for the histochemical, immunohistochemical and immunofluorescence stain(s) in this case (if any), except where stated explicitly. The performance characteristics of the stain(s) cited in this report were developed and its performance characteristic determined by the Dermatopathology Laboratory at [facility], directed by Dr. Errol Hartley. These tests need not be, and therefore are not, approved by the [place] Food and Drug Administration. The tests are used for clinical purposes. Billing Codes Specimen Charges Stain Charges 53501 95672 1 1 0 1:24 PM COMMUNITY HEALTH SPECIALIST DERMATOPATHOLOGY LABORATORY Embedded Images 0 1:24 PM COMMUNITY HEALTH SPECIALIST DERMATOPATHOLOGY LABORATORY Pathology/Cytology TISSUE SPECIMEN FROM SKIN / Unknown 02/04/2020 3:33 AM COMMUNITY HEALTH SPECIALIST 2020 12:07 PM COMMUNITY HEALTH SPECIALIST Miscellaneous samples (specimen) TISSUE SPECIMEN FROM SKIN / Unknown 02/04/2020 3:33 AM COMMUNITY HEALTH SPECIALIST 2020 12:07 PM COMMUNITY HEALTH SPECIALIST Edmund Navarrete MD LAB - PATHOLOGY/CYTO LOGY ORDERABLES DERMATOPATHOLOGY LABORATORY [facility] - Department of Dermatology [address], [address] [phone] documented in this encounter Visit Diagnoses Not on filedocumented in this encounter Care Teams Doping Supervisor Relationship Specialty Start Date End Date Raheem Shane MD [address] [place] [phone] PCP - General 01/14/16 11/27/23 Nick Flores DO [address] [place] [phone] PCP - General Family Medicine 11/28/23 documented as of this encounter
--- OUTSIDE RECORDS SUMMARY | 2024-03-13 19:38 | XMS_ITS | Referral Summary ---
Author Organization [facility] [place] [address] [facility] [address] [facility] [address] [place] [address] Care Team Providers Care Marine Steward Name Role Phone Nick Flores Primary Care Provider [phone] Encounters Date Type Department Care Team Description 02/02/2024 3:00 PM GENERATION ENGINEER Office Visit [facility] Card[facility] [address] [facility] [address] [place] [address] Yakov Cortes MD Longstanding persistent atrial fibrillation (CMS/HCC) (HCC) (Primary Dx); HTN (hypertension), benign; Chronic anticoagulation from Last 3 Months Allergies No known active allergies Medications levothyroxine [...] of ankle Perforating ulcer of the foot ([facility]) 10/01/19 15 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 Social History Tobacco Use Types Packs/Day Years Used Date Smoking Tobacco: Never Smokeless Tobacco: Never Tobacco Cessation:Counseling Given: Not Answered Alcohol Use Standard Drinks/Week Comments No 0 (1 standard drink = 0.6 oz pur e alcohol) Sex and Gender Information Value Date Recorded Sex Assigned at Not on file Legal Sex Male 3:46 AM GENERATION ENGINEER Gender Identity Not on file Sexual Orientation Not on file Last Filed Vital Signs Vital Sign Reading Time Taken Comments Blood Pressure 144/80 02/02/2024 3:05 PM GENERATION ENGINEER Pulse 72 02/02/2024 3:05 PM GENERATION ENGINEER Temperature - - Respiratory Rate 18 11/26/2019 10:0 6 AM CDT Oxygen Saturation 93% 02/02/2024 3:05 PM GENERATION ENGINEER Inhaled Oxygen Concentration - - Weight 89.7 kg (197 lb 11.2 oz) 02/02/2024 3:05 PM GENERATION ENGINEER Height 177.8 cm (5' 10 ) 02/02/2024 3:05 PM GENERATION ENGINEER Body Mass Index 28.37 02/02/2024 3:05 PM GENERATION ENGINEER Plan of Treatment Not on file Insurance [employer] MEDICARE MEDICARE SOLUTIONS [facility] MEDICARE Care Teams Marine Steward Relationship Specialty Start Date End Date Nick Flores DO PCP - General Family Medicine 11/23/21
--- OUTSIDE RECORDS SUMMARY | 2024-03-13 19:38 | XMS_ITS | Patient Health Summary ---
Author Organization [facility] Address [address] [place] [address] Care Team Providers Care Vocational Evaluator Name Role Phone Nick Flores DO Primary Care Provider [phone] Note from [facility],non-owned Affiliates and Associated Physician Practices is amultiple site organization consisting of ambulatory clinics and hospital sitesin [place], [place], [place] and [place]. This disclosure is being madepursuant to the Care Everywhere program and may not contain all information available regarding this patient. Last updated 17.[facility] Allergies No known active allergies Medications * Be aware that medications may not be up to date on this document. Alwaysverify current medications with the patient. * levothyroxine (SYNTHROID) 25 MCG tablet(Started 02/03/2016) Take by mouth DAILY. 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 Inhaled Oxygen Concentration - - Weight 82.6 kg (182 lb) 11/21/2020 9:08 AM CDT Height 179.1 cm (5' 10.5 ) 11/21/2020 9:08 AM CD T Body Mass Index 25.75 11/21/2020 9:08 AM CDT Procedures * CULTURE AEROBIC(Performed 11/28/2023) Performed for Visit for suture removal * MT INTMD WND REPAIR TRUNK,ARM,LEG 2.6-7.5(Performed 11/14/2023) Performed for Basal cell carcinoma (BCC) of back * MT CHMSRG MOHS MG TQ T/A/L 1ST STAG 5 BLOCKS(Performed 11/14/2023) Performed for Basal cell carcinoma (BCC) of back * MT FULL THICK GRFT NOS,EAR,LID <20SQCM(Performed 11/14/2023) 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 * MT CHMSRG MOHS MG TQ H/N/H/F/G EA ADDL STAG(Performed 11/14/2023) 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 * MT CHMSRG MOHS MG TQ H/N/H/F/G 1ST STAG 5 BLOC(Performed 11/14/2023) 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 * DERMATOPATHOLOGY(Performed 09/27/2023) * MT CHMSRG MOHS MG TQ H/N/H/F/G 1ST STAG 5 BLOC(Performed 09/20/2023) 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 * DERMATOPATHOLOGY(Performed 08/22/2023) * MT CHMSRG MOHS MG TQ H/N/H/F/G 1ST STAG 5 BLOC(Performed 05/11/2022) 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 * DERMATOPATHOLOGY(Performed 03/10/2022) * MT CHMSRG MOHS MG TQ H/N/H/F/G 1ST STAG 5 BLOC(Performed 11/21/2020) 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 Final ??Specimen Source: ?? Skin mohs ??Specimen Quality: ??Adequate ??Result: ?A mix of organisms of questionable significance ? was recovered on culture and not further ? identified. (Note: Growth did not detect the ? presence of S.aureus, beta-hemolytic Streptococci ? or P.aeruginosa). Test Performed at: [facility] ??[id number] KAYLYNN HORN MD Microbiology MOHS SURGERY / Unknown 11/28/2023 11/29/2023 2:28 AM CDT Yamilex Mallory MD LAB - MICROBIOLOGY O RDERABLES [address] [address] * MT CHMSRG MOHS MG TQ T/A/L 1ST STAG 5 BLOCKS, MT INTMD WND REPAIR TRUNK,ARM,LEG 2.6-7.5 (:17 PM CDT) Narrative Yamilex Mallory MD - 11/14/2023 1:17 PM CDT Yamilex Mallory MD ? 11/20/2023 ??8:10 PM Mohs Micrographic Surgery Operative Note Procedure: Mohs micrographic surgery Date of service: 11/14/2023 Location: mid lumbar back Preop diagnosis: Basal cell carcinoma Postop diagnosis: Basal cell carcinoma Mohs AUC score: 7 Number of stages: 1 Preop size: 1.4 x 1.0cm Postop size: 1.6x2.0 cm Depth of final defect: adipose Previous dermpath accession #: [id number] Repair type: intermediate Mohs accession #: [id number] Surgeon and Pathologist: Yamilex Mallory MD served as both surgeon and pathologist. No other physician was involved in the cancer removal or pathology interpretation. Assistants: Shaun Wynne MD Indications for Mohs Surgery Removal of the patient's tumor is complicated by the following clinical features: large tumor size, poorly-defined clinical tumor borders. Based on my medical judgement, Mohs surgery is the most appropriate treatment for this cancer compared to other treatments. I discussed alternative treatments to Mohs surgery and specifically discussed the risks and benefits of curettage, excision with permanent sections, and foregoing treatment. The rationale for Mohs was explained to the patient and consent was obtained. The risks, benefits and alternatives to therapy were discussed in detail. Specifically, the risks of infection, scarring, bleeding, prolonged wound healing, incomplete removal, allergy to anesthesia, nerve injury and recurrence were addressed. Prior to the procedure, the treatment site was clearly identified and confirmed by the patient. All components of Carefree Protocol/PAUSE Rule completed. STAGE I: The patient was placed on the operating table. The cancer was identified and outlined. The entire surgical field was prepped with hibiclens. The surgical site was anesthetized using Lidocaine 1% with epinephrine 1:100,000 buffered with sodium bicarbonate 8.4% in a 1:10 ratio.The area of clinically apparent tumor was debulked with a 4 mm curette. The layer of tissue was then surgically excised using a #15 blade and was then transferred onto a specimen sheet maintaining the orientation of the specimen. Hemostasis was obtained using monopolar electrodesiccation. The wound site was then covered with a dressing while the tissue samples were processed for examination. The specimen was oriented, mapped and divided. Each section was then inked and processed in the Mohs lab using the Mohs protocol and submitted for frozen section. The histopathologic sections were reviewed by the surgeon in conjunction with the reference map. Total blocks: 1 Total slides: 3 Frozen sections were examined by the surgeon. No additional tumor was identified. No additional histologic findings appreciated. Cell morphology: N/A. No tumor seen at the margin. Pathological pattern: N/A. No tumor seen. Depth of invasion: N/A. No tumor seen. Scar tissue: Not Present Perineural invasion: Not Present Inflammation obscuring possible tumor presence: Not Present [facility] CLIA # [id number] Mohs dental laboratory supervisor: Yamilex Mallory MD REPAIR: Intermediate Primary Surgeon: Yamilex Mallory MD Account Leader: Shaun Wynne MD Repair Size: 3.9 cm Sutures: 4-0 monocryl, 4-0 PDS The defect was identified and a marking pen was used to plan the repair. The area was infiltrated with Lidocaine 1% with epinephrine 1:100,000 buffered with sodium bicarbonate 8.4% in a 1:10 ratio, prepped with hibiclens and draped with sterile towels. The wound was debeveled and undermined widely. Cones were excised within relaxed skin tension lines on both sides of the defect. Hemostasis was obtained using monopolar electrodesiccation. The dermis and subcutaneous tissue were then approximated using buried vertical mattress sutures. Percutaneous running subcuticular sutures were carefully placed for maximum eversion and meticulous wound edge approximation. Careful attention was paid to avoid distorting any nearby free margins. The wound was cleansed with saline and ointment was applied along the wound surface. A sterile pressure dressing was applied. Wound care instructions were given verbally and in writing. The patient left the operating suite in stable condition. Patient was informed that additional refinement of the resulting surgical scar may be used as a second stage of this reconstruction. No postoperative medications were prescribed. The patient will follow up with their primary block feeder. Roger Friend MD Dermatology Resident PGY-3 ?? A procedure was performed. I present for the cueva portion of the procedure and was always immediately available. Date of Service : 11/14/2023 Yamilex Mallory MD Yamilex Mallory MD PROCEDURE/MINOR SURG ICAL ORDERABLES * MT CHMSRG MOHS MG TQ H/N/H/F/G 1ST STAG 5 BLOC, MT CHMSRG MOHS MG TQ H/N/H/F/G EA ADDL STAG, MT FULL THICK GRFT NOS,EAR,LID <20SQCM (11/14/2023 1:12 PM CDT) Narrative Yamilex Mallory MD - 11/14/2023 1:12 PM CDT Yamilex Mallory MD ? 11/20/2023 ??8:12 PM Mohs Micrographic Surgery Operative Note Procedure: Mohs micrographic surgery Date of service: 11/14/2023 Location: mid nose Preop diagnosis: Basal cell carcinoma Postop diagnosis: Basal cell carcinoma Mohs AUC score: 8 Number of stages: 3 Preop size: 0.8x1.1 cm Postop size: 2.0x1.4 cm Depth of final defect: adipose Previous dermpath accession #: [id number] Repair type: Burow's graft Mohs accession #: [id number] Surgeon and Pathologist: Yamilex Mallory MD served as both surgeon and pathologist. No other physician was involved in the cancer removal or pathology interpretation. Assistants: N/A Indications for Mohs Surgery Removal of the patient's tumor is complicated by the following clinical features: Clinical area critical for tissue conservation (Area H: central face, eyelids, eyebrows, nose, lips, chin, ear, periauricular, pentecostal, genitalia, hands, feet, ankles, nail units and areola). Based on my medical judgement, Mohs surgery is the most appropriate treatment for this cancer compared to other treatments. I discussed alternative treatments to Mohs surgery and specifically discussed the risks and benefits of curettage, excision with permanent sections, and foregoing treatment. The rationale for Mohs was explained to the patient and consent was obtained. The risks, benefits and alternatives to therapy were discussed in detail. Specifically, the risks of infection, scarring, bleeding, prolonged wound healing, incomplete removal, allergy to anesthesia, nerve injury and recurrence were addressed. Prior to the procedure, the treatment site was clearly identified and confirmed by the patient. All components of Carefree Protocol/PAUSE Rule completed. STAGE I: The patient was placed on the operating table. The cancer was identified and outlined. The entire surgical field was prepped with hibiclens. The surgical site was anesthetized using Lidocaine 1% with epinephrine 1:100,000 buffered with sodium bicarbonate 8.4% in a 1:10 ratio.The area of clinically apparent tumor was debulked with a 2 mm curette. The layer of tissue was then surgically excised using a #15 blade and was then transferred onto a specimen sheet maintaining the orientation of the specimen. Hemostasis was obtained using monopolar electrodesiccation. The wound site was then covered with a dressing while the tissue samples were processed for examination. The specimen was oriented, mapped and divided. Each section was then inked and processed in the Mohs lab using the Mohs protocol and submitted for frozen section. The histopathologic sections were reviewed by the surgeon in conjunction with the reference map. Total blocks: 1 Total slides: 3 Frozen sections were examined by the surgeon and revealed residual tumor. Tumor was indicated in red on the reference map. Cell morphology: basaloid nests with peripheral palisading and abundant mucin (nodular BCC) Pathological pattern: Basal cell carcinoma, nodular Depth of invasion: Dermis Scar tissue: Not Present Perineural invasion: Not Present Inflammation obscuring possible tumor presence: Not Present STAGE II: The patient was prepped in the same fashion as the first stage. Using a similar technique to that described above, a thin layer of tissue was removed from all areas where tumor was visible on the previous stage. The tissue was again oriented, mapped, dyed, and processed as above. Histopathologic sections were reviewed in conjunction with the reference map. Total blocks: 1 Total slides: 2 Frozen sections were examined by the surgeon and revealed residual tumor. Tumor was indicated in red on the reference map. No additional histologic findings appreciated. STAGE III: The patient was prepped in the same fashion as the first stage. Using a similar technique to that described above, a thin layer of tissue was removed from all areas where tumor was visible on the previous stage. The tissue was again oriented, mapped, dyed, and processed as above. Histopathologic sections were reviewed in conjunction with the reference map. Total blocks: 1 Total slides: 2 Frozen sections were examined by the surgeon and revealed: No additional tumor. Histology: No malignant cells seen in the sections examined. No additional histologic findings appreciated. [facility] CLIA # [id number] Mohs Director Of Knowledge Management: Yamilex Mallory MD REPAIR: Burow? s FTSG and Partial Intermediate Repair Primary Surgeon: Yamilex Mallory MD Account Leader: N/A Repair Size: 2.0 x 1.8 cm (graft), 2.0 cm (donor)nasal dorsum Sutures: 4-0 monocryl,5.0 prolene INDICATIONS: The patient is status post Mohs' micrographic surgery. ??After consideration of the adjacent tissue type and reconstructive options, including healing by second intention, it was determined that a FTSG offered the best chance for preservation of normal anatomic and functional relationships. ?? The patient was advised of the risks of bleeding, infection, wound dehiscence, trapdooring and discomfort, as well as scar formation. ??Informed consent was obtained in writing. ??The patient underwent the procedure as follows: The defect was identified and a marking pen was used to plan the repair. The area was infiltrated with Lidocaine 1% with epinephrine 1:100,000 buffered with sodium bicarbonate 8.4% in a 1:10 ratio, prepped with iodine and draped with sterile towels. The defect was trimmed and debeveled. A cone of tissue with similar characteristics to the sacrificed tissue was identified adjacent to the defect for use as a FTSG. The graft was incised sharply using a #15 blade to adipose, excised, thinned and trimmed. Hemostasis was obtained using monopolar electrodesiccation. The donor site was undermined widely and approximated with buried vertical mattress sutures placed in the dermis and subcutaneous tissue. The graft was meticulously secured to the recipient site with proline sutures. Percutaneous simple running sutures were carefully placed for maximum eversion and meticulous wound edge approximation. The wound was cleansed with saline and ointment was applied along the wound surface. A sterile pressure dressing was applied. Wound care instructions were given verbally and in writing. The patient left the operating suite in stable condition. Patient was informed that additional refinement of the resulting surgical scar may be used as a second stage of this reconstruction. No postoperative medications were prescribed. The patient will follow up in 2 week(s) for suture removal. Dr. Mallory performed the entire surgery, and documentation used to initiate this operative report. I entered the information in our [employer] DocFlowsheet with the information provided by Dr. Mallory on her handwritten, paper format, surgical worksheet, which was then used to initiate the create of this note. Dr. Mallory then reviewed and edited the note as needed to complete the note. Diann Hurd ??HOTEL BREAKFAST ATTENDANT I have reviewed the note, edited it as necessary and performed the entire procedure. Yamilex Mallory MD Quality System Manager 11/14/2023 Yamilex Mallory MD PROCEDURE/MINOR SURG ICAL ORDERABLES * DERMATOPATHOLOGY (09/27/2023 12:00 AM CDT) Only the most recent of9 resultswithin the time period is included. Case Report Dermatopathology Report ? Case: [id number] ? Authorizing Provider: ??Edmund Navarrete MD ?Collected: ? 09/27/2023 12:00 AM ? Ordering Location: ? [facility] - ??Received: ?09/29/2023 09:58 AM ? DermPath Lab ? Pathologist: ? Kathy Hartley MD ? Specimens: ?? A) - Skin, right upper cutaneous lip ? B) - Skin, midline lumbar back ? C) - Skin, midline mid nose ? 4 1:[address] [facility] DERMATOPATHOLOGY LABORATORY Final Diagnosis Specimen A. 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 SKIN, midline mid nose: BASAL CELL CARCINOMA, NODULAR TYPE (C44.311) 4 1:[address] [facility] DERMATOPATHOLOGY LABORATORY Clinical History A-B: R/o ISK, SCC vs BCC C: R/O BCC, SCC, alondra 4 1:[address] [facility] DERMATOPATHOLOGY LABORATORY Gross Description Specimen A: Received is one formalin filled container labeled with the patient's name and designated right upper cutaneous lip. The specimen consists of a shave biopsy measuring 2x2x1 mm. Jar 0. Specimen B: Received is one formalin filled container labeled with the patient's name and designated midline lumbar back. The specimen consists of a shave biopsy measuring 33t08j0 mm. Jar 0. Specimen C: Received is one formalin filled container labeled with the patient's name and designated midline mid nose. The specimen consists of a shave biopsy measuring 9x8x2 mm. Jar 0. 4 1:[address] [facility] DERMATOPATHOLOGY LABORATORY Microscopic Description Specimen A. [...] nuclear to cytoplasmic ratio and peripheral palisading. 4 1:24 PM CDT DERMATOPATHOLOGY LABORATORY Disclaimer An external and internal positive and negative controls are appropriate for the histochemical, immunohistochemical and immunofluorescence stain(s) in this case (if any), except where stated explicitly. The performance characteristics of the stain(s) cited in this report were developed and its performance characteristic determined by the Dermatopathology Laboratory at [facility], directed by Dr. Errol Hartley. These tests need not be, and therefore are not, approved by the [place] Food and Drug Administration. The tests are used for clinical purposes. Billing Codes Specimen Charges Stain Charges 11105 [id number] 1 1 1 4 1:24 PM CDT DERMATOPATHOLOGY LABORATORY Embedded Images 1:24 PM CDT DERMATOPATHOLOGY LABORATORY Pathology/Cytology TISSUE SPECIMEN FROM SKIN / Unknown 09/27/2023 09/29/2023 9:58 AM CDT Miscellaneous samples (specimen) TISSUE SPECIMEN FROM SKIN / Unknown 09/27/2023 09/29/2023 9:58 AM CDT Miscellaneous samples (specimen) TISSUE SPECIMEN FROM SKIN / Unknown 09/27/2023 09/29/2023 9:58 AM CDT Edmund Navarrete MD LAB - PATHOLOGY/CYTO LOGY ORDERABLES DERMATOPATHOLOGY LABORATORY [facility] - Department of Dermatology [address] [phone] * MT CHMSRG MOHS MG TQ H/N/H/F/G 1ST STAG 5 BLOC (09/20/2023 11:11 AM CDT) Narrative Yamilex Mallory MD - 09/20/2023 11:11 AM CDT Yamilex Mallory MD ? 09/26/2023 ??5:07 PM Mohs Micrographic Surgery Operative Note Procedure: Mohs micrographic surgery Date of service: 09/20/2023 Location: Right dorsal thumb Preop diagnosis: Squamous cell carcinoma Postop diagnosis: Squamous cell carcinoma Mohs AUC score: 8 Number of stages: 1 Preop size: 1.0x1.0 cm Postop size: 1.4x1.4 cm Depth of final defect: fascia Previous dermpath accession #: [id number] Repair type: second intent Mohs accession #: [id number] Surgeon and Pathologist: Yamilex Mallory MD served as both surgeon and pathologist. No other physician was involved in the cancer removal or pathology interpretation. Assistants: N/A Indications for Mohs Surgery Removal of the patient's tumor is complicated by the following clinical features: Clinical area critical for tissue conservation (Area H: central face, eyelids, eyebrows, nose, lips, chin, ear, periauricular, pentecostal, genitalia, hands, feet, ankles, nail units and areola). Based on my medical judgement, Mohs surgery is the most appropriate treatment for this cancer compared to other treatments. I discussed alternative treatments to Mohs surgery and specifically discussed the risks and benefits of curettage, excision with permanent sections, and foregoing treatment. The rationale for Mohs was explained to the patient and consent was obtained. The risks, benefits and alternatives to therapy were discussed in detail. Specifically, the risks of infection, scarring, bleeding, prolonged wound healing, incomplete removal, allergy to anesthesia, nerve injury and recurrence were addressed. Prior to the procedure, the treatment site was clearly identified and confirmed by the patient. All components of Carefree Protocol/PAUSE Rule completed. STAGE I: The patient was placed on the operating table. The cancer was identified and outlined. The entire surgical field was prepped with hibiclens. The surgical site was anesthetized using Lidocaine 1% with epinephrine 1:100,000 buffered with sodium bicarbonate 8.4% in a 1:10 ratio.The area of clinically apparent tumor was debulked with a 15 blade. The layer of tissue was then surgically excised using a #15 blade and was then transferred onto a specimen sheet maintaining the orientation of the specimen. Hemostasis was obtained using monopolar electrodesiccation. The wound site was then covered with a dressing while the tissue samples were processed for examination. The specimen was oriented, mapped and divided. Each section was then inked and processed in the Mohs lab using the Mohs protocol and submitted for frozen section. The histopathologic sections were reviewed by the surgeon in conjunction with the reference map. Total blocks: 1 Total slides: 3 Frozen sections were examined by the surgeon. No additional tumor was identified. No additional histologic findings appreciated. Cell morphology: N/A. No tumor seen at the margin. Pathological pattern: N/A. No tumor seen. Depth of invasion: N/A. No tumor seen. Scar tissue: Not Present Perineural invasion: Not Present Inflammation obscuring possible tumor presence: Not Present [facility] CLIA # [id number] Mohs dental laboratory supervisor: Yamilex Mallory MD REPAIR: Secondary Intention The patient is status-post Mohs micrographic surgery. The surgical site was examined with attention to normal anatomic and functional relationships. After consideration and discussion of multiple options with the patient, it was determined that healing by secondary intention would offer the best chance for preservation/roman catholic of all normal anatomic and functional relationships. The patient verbalized understanding and agreed with this plan. It is also understood that should second intention healing be sub-optimal, additional procedures such as scar revision, steroid injection or dermabrasion may be recommended. The open wound was cleaned and a thick layer of vaseline was applied. A pressure dressing consisting of non-adherent gauze, gauze, and hypafix was applied. Wound care was discussed with the patient both orally and in writing. The patient stated understanding and agreement with the course of care. No postoperative medications were prescribed. The patient will follow up in 4 week(s) for a wound check. ?? Dr. Mallory performed the entire surgery, and documentation used to initiate this operative report. I entered the information in our [employer] DocFlowsheet with the information provided by Dr. Mallory on her handwritten, paper format, surgical worksheet, which was then used to initiate the create of this note. Dr. Mallory then reviewed and edited the note as needed to complete the note. Clara Amaral ??JAMIE I have reviewed the note, edited it as necessary and performed the entire procedure. Yamilex Mallory MD Quality System Manager 09/20/2023 Yamilex Mallory MD PROCEDURE/MINOR SURG ICAL ORDERABLES * MT [facility] MOHS MG TQ H/N/H/F/G 1ST STAG 5 BLOC (05/11/2022 4:22 PM CDT) Narrative Yamilex Mallory MD - 05/11/2022 4:22 PM CDT Yamilex Mallory MD ? 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 No other physician was involved in the cancer removal or pathology interpretation. Assistants: N/A Indications for Mohs Surgery Removal of the patient's tumor is complicated by the following clinical features: Clinical area critical for tissue conservation (Area H: central face, eyelids, eyebrows, nose, lips, chin, ear, periauricular, pentecostal, genitalia, hands, feet, ankles, nail units and areola). Based on my medical judgement, Mohs surgery is the most appropriate treatment for this cancer compared to other treatments. I discussed alternative treatments to Mohs surgery and specifically discussed the risks and benefits of curettage, excision with permanent sections, and foregoing treatment. The rationale for Mohs was explained to the patient and consent was obtained. The risks, benefits and alternatives to therapy were discussed in detail. Specifically, the risks of infection, scarring, bleeding, prolonged wound healing, incomplete removal, allergy to anesthesia, nerve injury and recurrence were addressed. Prior to the procedure, the treatment site was clearly identified and confirmed by the patient. All components of Care[facility] Protocol/PAUSE Rule completed. STAGE I: The patient was placed on the operating table. The cancer was identified and outlined. The entire surgical field was prepped with hibiclens. The surgical site was anesthetized using Lidocaine 1% with epinephrine 1:100,000 buffered with sodium bicarbonate 8.4% in a 1:10 ratio.The area of clinically apparent tumor was debulked with a 2 mm curette. The layer of tissue was then surgically excised using a #15 blade and was then transferred onto a specimen sheet maintaining the orientation of the specimen. Hemostasis was obtained using monopolar electrodesiccation. The wound site was then covered with a dressing while the tissue samples were processed for examination. The specimen was oriented, mapped and divided. Each section was then inked and processed in the Mohs lab using the Mohs protocol and submitted for frozen section. The histopathologic sections were reviewed by the surgeon in conjunction with the reference map. Total blocks: 1 Total slides: 3 Frozen sections were examined by the surgeon. No additional tumor was identified. No additional histologic findings appreciated. Cell morphology: N/A. No tumor seen. Pathological pattern: N/A. No tumor seen. Depth of invasion: N/A. No tumor seen. Scar tissue: Not Present Perineural invasion: Not Present Inflammation obscuring possible tumor presence: Not Present [facility] CLIA # [id number] Mohs dental laboratory supervisor: Yamilex Mallory MD REPAIR: Secondary Intention The patient is status-post Mohs micrographic surgery. The surgical site was examined with attention to normal anatomic and functional relationships. After consideration and discussion of multiple options with the patient, it was determined that healing by secondary intention would offer the best chance for preservation/roman catholic of all normal anatomic and functional relationships. The patient verbalized understanding and agreed with this plan. It is also understood that should second intention healing be sub-optimal, additional procedures such as scar revision, steroid injection or dermabrasion may be recommended. The open wound was cleaned and a thick layer of vaseline was applied. A pressure dressing consisting of non-adherent gauze, gauze, and hypafix was applied. Wound care was discussed with the patient both orally and in writing. The patient stated understanding and agreement with the course of care. Dr. Mallory performed the entire surgery, and documentation used to initiate this operative report. I entered the information in our [employer] DocFlowsheet with the information provided by Dr. Mallory on her handwritten, paper format, surgical worksheet, which was then used to initiate the create of this note. Dr. Mallory then reviewed and edited the note as needed to complete the note. Diann Hurd HOTEL BREAKFAST ATTENDANT I have reviewed the note, edited it as necessary and performed the entire procedure. Yamilex Mallory MD Quality System Manager 05/11/2022 Yamilex Mallory MD PROCEDURE/MINOR SURG ICAL ORDERABLES * MT REMOVAL EXTERNAL EAR,PARTIAL, MT [facility] MOHS MG TQ H/N/H/F/G 1ST STAG 5 BLOC (11/21/2020 12:53 PM CDT) Narrative Cesar Bishop MD - 11/21/2020 12:53 PM CDT Cesar Bishop MD ? 11/25/2020 ??4:57 PM Mohs Micrographic Surgery Operative Note Procedure: Mohs micrographic surgery Date of service: 11/21/2020 Location: L lower helical rim Preop diagnosis: Basal cell carcinoma, infiltrative Postop diagnosis: Basal cell carcinoma, infiltrative Mohs AUC score: 9 Number of stages: 1 Preop size: 1.0x0,7 cm Postop size: 1.4x0.8 cm Depth of final defect: adipose Previous dermpath accession #: [id number] Repair type: wedge excision Mohs accession #: [id number] Surgeon and Pathologist: Cesar Bishop MD served as both surgeon and pathologist. No other physician was involved in the cancer removal or pathology interpretation. Assistants: Shaw Duarte MD Indications for Mohs Surgery Removal of the patient's tumor is complicated by the following clinical features: Clinical area critical for tissue conservation (Area H: central face, eyelids, eyebrows, nose, lips, chin, ear, periauricular, pentecostal, genitalia, hands, feet, ankles, nail units and areola), aggressive pattern on initial pathology. Based on my medical judgement, Mohs surgery is the most appropriate treatment for this cancer compared to other treatments. I discussed alternative treatments to Mohs surgery and specifically discussed the risks and benefits of curettage, excision with permanent sections, and foregoing treatment. The rationale for Mohs was explained to the patient and consent was obtained. The risks, benefits and alternatives to therapy were discussed in detail. Specifically, the risks of infection, scarring, bleeding, prolonged wound healing, incomplete removal, allergy to anesthesia, nerve injury and recurrence were addressed. Prior to the procedure, the treatment site was clearly identified and confirmed by the patient. All components of Carefree Protocol/PAUSE Rule completed. STAGE I: The patient was placed on the operating table. The cancer was identified and outlined. The entire surgical field was prepped with hibiclens. The surgical site was anesthetized using Lidocaine 1% with epinephrine 1:100,000 buffered with sodium bicarbonate 8.4% in a 1:10 ratio.The area of clinically apparent tumor was debulked with a 2 mm curette. The layer of tissue was then surgically excised using a #15 blade and was then transferred onto a specimen sheet maintaining the orientation of the specimen. Hemostasis was obtained using monopolar electrodesiccation. The wound site was then covered with a dressing while the tissue samples were processed for examination. The specimen was oriented, mapped and divided. Each section was then inked and processed in the Mohs lab using the Mohs protocol and submitted for frozen section. The histopathologic sections were reviewed by the surgeon in conjunction with the reference map. Total blocks: 1 Total slides: 3 Frozen sections were examined by the surgeon. No additional tumor was identified. No additional histologic findings appreciated. Cell morphology: n/a Pathological pattern: n/a Depth of invasion: n/a Scar tissue: Not Present Perineural invasion: Not Present Inflammation obscuring possible tumor presence: Not Present [facility] CLIA # [id number] Mohs dental laboratory supervisor: Yamilex Mallory MD Helical Wedge Reconstruction (complex repair) PROCEDURE: A helical wedge was designed. Local anesthesia was obtained. The excision removing the full helical wedge was performed using a #15 blade. Hemostasis was obtained using monopolar electrocoagulation. ??The wound was closed in separate sequential layers (fibroadipose/cartilage, skin). The helical rim was carefully re-approximated using 5-0 prolene sutures for epidermal approximation. A pressure dressing was applied. The attending surgeon was present for the procedure and always immediately available. Johnson Duarte MD Dermatologic Surgery Fellow [facility] Dermatology Cesar Bishop MD PROCEDURE/MINOR SURG ICAL ORDERABLES Care Teams Vocational Evaluator Relationship Specialty Start Date End Date Mark DO Nick [facility] [place] [address] PCP - General Family Medicine 11/28/23
--- OUTSIDE RECORDS SUMMARY | 2024-03-13 19:38 | XMS_ITS | Referral Summary ---
Author Organization [facility] [employer] Address [address] [address] Care Team Providers Care Information Systems Administrator Name Role Phone Nick Flores DO Primary Care Provider [phone] Source Comments [facility],non-owned Affiliates and Associated Physician Practices is amultiple site organization consisting of ambulatory clinics and hospital sitesin [place], [place], [place] and [place]. This disclosure is being madepursuant to the Care Everywhere program and may not contain all information available regarding this patient. Last updated 17.[facility] [employer] Encounters Date Type Department Care Team Description 01/17/2024 Travel 01/17/2024 1:30 PM CHILD CUSTODY EVALUATOR Office Visit [facility] - Dermatology [address], [facility] [address] [place] [address] Personal history of skin cancer (Primary Dx) from Last 3 Months Allergies No known active allergies Medications * [...] - Oxygen Saturation 98% 04/06/2016 10:32 AM CHILD CUSTODY EVALUATOR Inhaled Oxygen Concentration - - Weight 82.6 kg (182 lb) 11/21/2020 9:08 AM CDT Height 179.1 cm (5' 10.5 ) 11/21/2020 9:08 AM CD T Body Mass Index 25.75 11/21/2020 9:08 AM CDT Plan of Treatment Not on file Care Teams Information Systems Administrator Relationship Specialty Start Date End Date Nick Flores DO [address] [place] [address] PCP - General Family Medicine 11/28/23
--- OUTSIDE RECORDS SUMMARY | 2024-03-13 19:38 | XMS_ITS | Encounter Summary ---
Author Organization [facility] Address [address] [place] [address] Care Team Providers Care Insurance Commissioner Name Role Phone Raheem Shane MD Primary Care Provider [phone] Nick Flores DO Primary Care Provider [phone] Encounter Details Date Type Department Care Team (Late st Contact Info) Description 02/27/2020 Lab Requisition [facility] Care DermPath Lab [address] [facility] [place] [address] Edmund Navarrete MD [address] [place] [address] Social History Tobacco Use Types [...] Priority Date/Time Associated Diagnosis Comments DERMATOPATHOLOGY Routine 02/26/2020 3:27 AM FINANCIAL DEVELOPER documented in this encounter Results * DERMATOPATHOLOGY (02/26/2020 3:27 AM FINANCIAL DEVELOPER) Case Report Dermatopathology Report ? Case: [id number] ? Authorizing Provider: ??Edmund Navarrete MD ?Collected: ? 02/26/2020 03:27 AM ? Ordering Location: ? [facility] DermPath Lab ?Received: ?02/27/2020 02:02 PM ? Pathologist: ? Ayla Wylie MD ? Specimen: ?Skin, right frontal scalp ? 12:43 PM [facility] DERMATOPATHOLOGY LABORATORY Final Diagnosis Specimen A. 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 Previous Bx: [id number]. Check margins. 12:43 PM [facility] DERMATOPATHOLOGY LABORATORY Gross Description Specimen A: Received is one formalin filled container labeled with the patient's name and designated right frontal scalp. The specimen consists of a curettage and desiccation biopsy measuring 35m56x5ve. The margin is inked green. Jar 0+. 12:43 PM [facility] DERMATOPATHOLOGY LABORATORY Microscopic Description Specimen A. SKIN, right frontal scalp: At the periphery of the specimen, there is hyperkeratosis alternating with parakeratosis. There is epidermal hyperplasia with disorderly maturation of keratinocytes with nuclear pleomorphism confined to the lower half of the epidermis. This process extends to peripheral margin and the base of the specimen. This lesion is present at the margin of the specimen. There are fibroblasts and collagen bundles oriented parallel to the skin surface with elongated blood vessels, some of which are oriented perpendicular to the skin surface. COMMENT: A squamous cell carcinoma cannot be ruled out. 1 12:43 PM [facility] DERMATOPATHOLOGY LABORATORY Disclaimer An external and internal positive and negative controls are appropriate for the histochemical, immunohistochemical and immunofluorescence stain(s) in this case (if any), except where stated explicitly. The performance characteristics of the stain(s) cited in this report were developed and its performance characteristic determined by the Dermatopathology Laboratory at [facility], directed by Dr. Errol Hartley. These tests need not be, and therefore are not, approved by the [place] Food and Drug Administration. The tests are used for clinical purposes. Billing Codes Specimen Charges Stain Charges 45359 1 1 12:43 PM [facility] DERMATOPATHOLOGY LABORATORY Embedded Images 1 12:43 PM [facility] DERMATOPATHOLOGY LABORATORY Pathology/Cytolo gy TISSUE SPECIMEN FROM SKIN / Unknown 02/26/2020 3:27 AM FINANCIAL DEVELOPER 02/27/2020 2:02 PM FINANCIAL DEVELOPER Edmund Navarrete MD LAB - PATHOLOGY/CYTO LOGY ORDERABLES DERMATOPATHOLOGY LABORATORY [facility] - Department of Dermatology [address], [address] [phone] documented in this encounter Visit Diagnoses Not on filedocumented in this encounter Care Teams Insurance Commissioner Relationship Specialty Start Date End Date Raheem Shane MD [address] [place] [address] PCP - General 01/14/16 11/27/23 Nick Flores DO [facility] [place] [phone] PCP - General Family Medicine 11/28/23 documented as of this encounter
--- OUTSIDE RECORDS SUMMARY | 2024-03-13 19:38 | XMS_ITS | Clinical Summary ---
Author Organization [facility] Address [address] [place] [address] Phone Care Team Providers Care Field Training Manager Name Role Phone Raheem Shane MD Primary Care Provider Social History Tobacco Use Types Packs/Day Years Used Date Smoking Tobacco: Never Assessed Sex and Gender Information Value Date Recorded Sex Assigned at Not on file Legal Sex Male 2:41 PM CDT Gender Identity Not on file Sexual Orientation Not on file Plan of Treatment Health Maintenance Due Date Last Done Comments DTAP/TDAP/TD VACCINES (1 - Tdap) 1954 PNEUMOCOCCAL VACCINE 65+ YEARS (1 of 1 - PCV) 02/05/19 85 ZOSTER VACCINE (1 of 2) 1985 RSV VACCINE (60+ or ) (1 - 1-dose 75+ series) 2010 INFLUENZA VACCINE (#1) 2023 Insurance [facility] [id number] Care Teams Field Training Manager Relationship Specialty Start Date End Date Raheem Shane MD [address] [place] [address] [facility] - General 09/29/17
[2024-03-13 19:45] VITALS: BP 154/97; PULSE 95; RESP 20; TEMP 37; O2SAT 97
--- OUTSIDE RECORDS SUMMARY | 2024-03-13 20:30 | XMS_ITS | Clinical Summary ---
Author Organization [facility] Address [address] [facility] [place] [address] Care Team Providers Care Head Gauge Unit Operator Name Role Phone Nick Flores DO Primary Care Provider [phone] Source Comments [facility],non-owned Affiliates and Associated Physician Practices is amultiple site organization consisting of ambulatory clinics and hospital sitesin [place], [place], [place] and [place]. This disclosure is being madepursuant to the Care Everywhere program and may not contain all information available regarding this patient. Last updated 17.[facility] Allergies No known active allergies Medications * [...] Department Care Team Description 01/17/2024 1:30 PM SENIOR MILITARY ANALYST Office Visit [facility] - Dermatology [address], [address] [place] [address] Personal history of skin cancer [...] - Oxygen Saturation 98% 04/06/2016 10:32 AM SENIOR MILITARY ANALYST Inhaled Oxygen Concentration - - Weight 82.6 [...] age to complete this topic Care Teams Head Gauge Unit Operator Relationship Specialty Start Date End Date Nick Flores DO [address] [place] [phone] PCP - General Family Medicine 11/28/23
--- OUTSIDE RECORDS SUMMARY | 2024-03-13 20:30 | XMS_ITS | Encounter Summary ---
Author Organization [facility] Address [address] [facility] [place] [address] Care Team Providers Care Cinder Dump Crane Operator Name Role Phone Raheem Shane MD Primary Care Provider [phone] Nick Flores DO Primary Care Provider [phone] Encounter Details Date Type Department Care Team (Late st Contact Info) Description 03/11/2022 Lab Requisition [facility] Care DermPath Lab [address] [facility] [place] [address] Edmund Navarrete MD [address] [place] [address] Social History Tobacco Use Types [...] Comments DERMATOPATHOLOGY Routine 03/10/2022 12:0 0 AM DESIGN ENG documented in this encounter Results * DERMATOPATHOLOGY (03/10/2022 12:00 AM DESIGN ENG) Case Report Dermatopathology Report ? Case: [id number] ? Authorizing Provider: ??Edmund Navarrete MD ?Collected: ? 03/10/2022 12:00 AM ? Ordering Location: ? [facility] DermPath Lab ?Received: ?03/11/2022 01:26 PM ? Pathologist: ? Ayla Wylie MD ? Specimen: ?Skin, right post ear ? 3 3:17 PM [facility] DERMATOPATHOLOGY LABORATORY Final Diagnosis Specimen A. SKIN, right post ear: SQUAMOUS CELL CARCINOMA IN SITU, VERRUCOUS-HYPERTROP HIC TYPE; PRESENT AT THE BASE OF THE SPECIMEN (D04.21) (see microscopic description and comment) 3 3:17 PM [facility] DERMATOPATHOLOGY LABORATORY Clinical History R/O SCC 3 3:17 PM [facility] DERMATOPATHOLOGY LABORATORY Gross Description Specimen A: Received is one formalin filled container labeled with the patient's name and designated right post ear. The specimen consists of a shave biopsy measuring 6x6x5, 7x4x1 mm. Jar 0. 3 3:17 PM [facility] DERMATOPATHOLOGY LABORATORY Microscopic Description Specimen A. SKIN, [...] cannot be ruled out. 3 3:17 PM [facility] DERMATOPATHOLOGY LABORATORY Disclaimer An external and internal positive and negative controls are appropriate for the histochemical, immunohistochemical and immunofluorescence stain(s) in this case (if any), except where stated explicitly. The performance characteristics of the stain(s) cited in this report were developed and its performance characteristic determined by the Dermatopathology Laboratory at [facility], directed by Dr. Errol Hartley. These tests need not be, and therefore are not, approved by the [place] Food and Drug Administration. The tests are used for clinical purposes. Billing Codes Specimen Charges Stain Charges 58361 1 3 3:17 PM [facility] DERMATOPATHOLOGY LABORATORY Embedded Images 3 3:17 PM [facility] DERMATOPATHOLOGY LABORATORY Pathology/Cytolog y TISSUE SPECIMEN FROM SKIN / Unknown 03/10/2022 03/11/2022 1:26 PM DESIGN ENG Edmund Navarrete MD LAB - PATHOLOGY/CYTO LOGY ORDERABLES DERMATOPATHOLOGY LABORATORY [facility] - Department of Dermatology [address] [phone] documented in this encounter Visit Diagnoses Not on filedocumented in this encounter Care Teams Cinder Dump Crane Operator Relationship Specialty Start Date End Date Raheem Shane MD [address] [place] [address] PCP - General 01/14/16 11/27/23 Nick Flores DO [address] [place] [phone] PCP - General Family Medicine 11/28/23 documented as of this encounter
--- OUTSIDE RECORDS SUMMARY | 2024-03-13 20:30 | XMS_ITS | Patient Health Summary ---
Author Organization [facility] Address [address] [place] [address] Care Team Providers Care Sheet Metal Supervisor Name Role Phone Nick Flores DO Primary Care Provider [phone] Note from [facility],non-owned Affiliates and Associated Physician Practices is amultiple site organization consisting of ambulatory clinics and hospital sitesin [place], [place], [place] and [place]. This disclosure is being madepursuant to the Care Everywhere program and may not contain all information available regarding this patient. Last updated 17.[facility] Allergies No known active allergies Medications * [...] - Oxygen Saturation 98% 04/06/2016 10:32 AM RESIDENTIAL ROOFER HELPER Inhaled Oxygen Concentration - - Weight 82.6 kg (182 lb) 11/21/2020 9:08 AM CDT Height 179.1 cm (5' 10.5 ) 11/21/2020 9:08 AM CD T Body Mass Index 25.75 11/21/2020 9:08 AM CDT Procedures * CULTURE AEROBIC(Performed 11/28/2023) Performed for Visit for suture removal * KS INTMD WND REPAIR TRUNK,ARM,LEG 2.6-7.5(Performed 11/14/2023) Performed for Basal cell carcinoma (BCC) of back * [place] CHMSRG MOHS MG TQ T/A/L 1ST STAG 5 BLOCKS(Performed 11/14/2023) Performed for Basal cell carcinoma (BCC) of back * [place] FULL THICK GRFT NOS,EAR,LID <20SQCM(Performed 11/14/2023) 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 * [place] [facility] MOHS MG TQ H/N/H/F/G EA ADDL STAG(Performed 11/14/2023) 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 * [place] [facility] MOHS MG TQ H/N/H/F/G 1ST STAG 5 BLOC(Performed 11/14/2023) 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 * DERMATOPATHOLOGY(Performed 09/27/2023) * [place] [facility]MS[facility] MOHS MG TQ H/N/H/F/G 1ST STAG 5 BLOC(Performed 09/20/2023) 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 * DERMATOPATHOLOGY(Performed 08/22/2023) * [place] CHMSRG MOHS MG TQ H/N/H/F/G 1ST STAG 5 BLOC(Performed 05/11/2022) 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 * DERMATOPATHOLOGY(Performed 03/10/2022) * [place] CHMSRG MOHS MG TQ H/N/H/F/G 1ST STAG 5 BLOC(Performed 11/21/2020) 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 Final ??Specimen Source: ?? Skin mohs ??Specimen Quality: ??Adequate ??Result: ?A mix of organisms of questionable significance ? was recovered on culture and not further ? identified. (Note: Growth did not detect the ? presence of S.aureus, beta-hemolytic Streptococci ? or P.aeruginosa). Test Performed at: [facility] ??[id number] KAYLYNN HORN MD Microbiology MOHS SURGERY / Unknown 11/28/2023 11/29/2023 2:28 AM CDT Yamilex Mallory MD LAB - MICROBIOLOGY O RDERABLES [address] [address] * [place] CHMSRG MOHS MG TQ T/A/L 1ST STAG 5 BLOCKS, KS INTMD WND REPAIR TRUNK,ARM,LEG 2.6-7.5 (:17 PM [...] final defect: adipose Previous dermpath accession #: [id number] Repair type: intermediate Mohs accession #: [id number] [...] confirmed by the patient. All components of [place] Protocol/PAUSE Rule completed. STAGE I: The patient [...] presence: Not Present [facility] CLIA # [id number] Mohs engineer geophysical laboratory: Yamilex Mallory MD REPAIR: Intermediate Primary Surgeon: Yamilex Mallory MD Radiosonde Operator: Shaun Wynne MD Repair Size: 3.9 cm [...] patient will follow up with their primary office 365 consultant. Roger Friend MD Dermatology Resident PGY-3 ?? A procedure was performed. I present for the cueva portion of the procedure and was always immediately available. Date of Service : 11/14/2023 Yamilex Mallory MD Yamilex Mallory MD PROCEDURE/MINOR SURG ICAL ORDERABLES * [place] CHMSRG MOHS MG TQ H/N/H/F/G 1ST STAG 5 BLOC, [place] CHMSRG MOHS MG TQ H/N/H/F/G EA ADDL STAG, KS FULL THICK GRFT NOS,EAR,LID <20SQCM (11/14/2023 1:12 [...] final defect: adipose Previous dermpath accession #: [id number] Repair type: Burow's graft Mohs accession [...] eyelids, eyebrows, nose, lips, chin, ear, periauricular, lutheran, genitalia, hands, feet, ankles, nail units and [...] confirmed by the patient. All components of [place] Protocol/PAUSE Rule completed. STAGE I: The patient [...] sections examined. No additional histologic findings appreciated. [facility] CLIA # [id number] Mohs Circle Edger: Yamilex Mallory MD REPAIR: Burow? s FTSG and Partial Intermediate Repair Primary Surgeon: Yamilex Mallory MD Radiosonde Operator: N/A Repair Size: 2.0 x 1.8 cm [...] report. I entered the information in our [employer] DocFlowsheet with the information provided by Dr. Mallory on her handwritten, paper format, surgical worksheet, which was then used to initiate the create of this note. Dr. Mallory then reviewed and edited the note as needed to complete the note. Diann Hurd ??TOLL PATROLMAN I have reviewed the note, edited it as necessary and performed the entire procedure. Yamilex Mallory MD Literacy Coach 11/14/2023 Yamilex Mallory MD PROCEDURE/MINOR SURG ICAL ORDERABLES * DERMATOPATHOLOGY (09/27/2023 12:00 AM CDT) Only the most recent of9 resultswithin the time period is included. Case Report Dermatopathology Report ? Case: [id number] ? Authorizing Provider: ??Edmund Navarrete MD ?Collected: ? 09/27/2023 12:00 AM ? Ordering Location: ? [facility] - ??Received: ?09/29/2023 09:58 AM ? DermPath Lab ? Pathologist: ? Kathy Hartley MD ? Specimens: ?? A) - Skin, right upper cutaneous lip ? B) - Skin, midline lumbar back ? C) - Skin, midline mid nose ? 4 1:24 PM [facility] DERMATOPATHOLOGY LABORATORY Final Diagnosis Specimen A. 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 SKIN, midline mid nose: BASAL CELL CARCINOMA, NODULAR TYPE (C44.311) 4 1:24 PM [facility] DERMATOPATHOLOGY LABORATORY Clinical History A-B: R/o ISK, SCC vs BCC C: R/O BCC, SCC, alondra 4 1:24 PM [facility] DERMATOPATHOLOGY LABORATORY Gross Description Specimen A: Received is one formalin filled container labeled with the patient's name and designated right upper cutaneous lip. The specimen consists of a shave biopsy measuring 2x2x1 mm. Jar 0. Specimen B: Received is one formalin filled container labeled with the patient's name and designated midline lumbar back. The specimen consists of a shave biopsy measuring 11l05r3 mm. Jar 0. Specimen C: Received is one formalin filled container labeled with the patient's name and designated midline mid nose. The specimen consists of a shave biopsy measuring 9x8x2 mm. Jar 0. 4 1:24 PM [facility] DERMATOPATHOLOGY LABORATORY Microscopic Description Specimen A. SKIN, [...] characteristic determined by the Dermatopathology Laboratory at [facility], directed by Dr. Errol Hartley. These tests need not be, and therefore are not, approved by the [place] Food and Drug Administration. The tests are used for clinical purposes. Billing Codes Specimen Charges Stain Charges 75272 15442 14499 1 1 1 4 1:24 PM CDT [...] - PATHOLOGY/CYTO LOGY ORDERABLES DERMATOPATHOLOGY LABORATORY [facility] - Department of Dermatology [address] [phone] * [place] CHMSRG MOHS MG TQ H/N/H/F/G 1ST STAG [...] final defect: fascia Previous dermpath accession #: [id number] Repair type: second intent Mohs accession #: [...] eyelids, eyebrows, nose, lips, chin, ear, periauricular, lutheran, genitalia, hands, feet, ankles, nail units and [...] confirmed by the patient. All components of [place] Protocol/PAUSE Rule completed. STAGE I: The patient [...] Inflammation obscuring possible tumor presence: Not Present [facility] CLIA # [id number] Mohs engineer geophysical laboratory: Yamilex Mallory MD REPAIR: Secondary Intention The patient is status-post Mohs micrographic surgery. The surgical site was examined with attention to normal anatomic and functional relationships. After consideration and discussion of multiple options with the patient, it was determined that healing by secondary intention would offer the best chance for preservation/lutheran of all normal anatomic and functional relationships. [...] report. I entered the information in our [employer] DocFlowsheet with the information provided by Dr. Mallory on her handwritten, paper format, surgical worksheet, which was then used to initiate the create of this note. Dr. Mallory then reviewed and edited the note as needed to complete the note. Clara Amaral ??JAMIE I have reviewed the note, edited it as necessary and performed the entire procedure. Yamilex Mallory MD Literacy Coach 09/20/2023 Yamilex Mallory MD PROCEDURE/MINOR SURG ICAL ORDERABLES * KS CHMSRG MOHS MG TQ H/N/H/F/G 1ST STAG [...] final defect: fascia Previous dermpath accession #: [id number] Repair type: second intent Mohs accession #: [...] eyelids, eyebrows, nose, lips, chin, ear, periauricular, lutheran, genitalia, hands, feet, ankles, nail units and [...] confirmed by the patient. All components of [place] Protocol/PAUSE Rule completed. STAGE I: The patient [...] Inflammation obscuring possible tumor presence: Not Present [facility] CLIA # [id number] Mohs engineer geophysical laboratory: Yamilex Mallory MD REPAIR: Secondary Intention The patient is status-post Mohs micrographic surgery. The surgical site was examined with attention to normal anatomic and functional relationships. After consideration and discussion of multiple options with the patient, it was determined that healing by secondary intention would offer the best chance for preservation/lutheran of all normal anatomic and functional relationships. [...] report. I entered the information in our [employer] DocFlowsheet with the information provided by Dr. Mallory on her handwritten, paper format, surgical worksheet, which was then used to initiate the create of this note. Dr. Mallory then reviewed and edited the note as needed to complete the note. Diann Hurd TOLL PATROLMAN I have reviewed the note, edited it as necessary and performed the entire procedure. Yamilex Mallory MD Literacy Coach 05/11/2022 Yamilex Mallory MD PROCEDURE/MINOR SURG ICAL ORDERABLES * KS REMOVAL EXTERNAL EAR,PARTIAL, [place] CHMSRG MOHS MG TQ H/N/H/F/G 1ST STAG [...] final defect: adipose Previous dermpath accession #: [id number] Repair type: wedge excision Mohs accession #: [id number] Surgeon and Pathologist: Cesar Bishop MD served as both surgeon and pathologist. No other physician was involved in the cancer removal or pathology interpretation. Assistants: Shwa Duarte MD Indications for Mohs Surgery Removal of the patient's tumor is complicated by the following clinical features: Clinical area critical for tissue conservation (Area H: central face, eyelids, eyebrows, nose, lips, chin, ear, periauricular, lutheran, genitalia, hands, feet, ankles, nail units and [...] confirmed by the patient. All components of [place] Protocol/PAUSE Rule completed. STAGE I: The patient [...] presence: Not Present [facility] CLIA # [id number] Mohs engineer geophysical laboratory: Yamilex Mallory MD Helical Wedge Reconstruction (complex [...] available. Johnson Duarte MD Dermatologic Surgery Fellow [facility] Dermatology Cesar Bishop MD PROCEDURE/MINOR SURG ICAL ORDERABLES Care Teams Sheet Metal Supervisor Relationship Specialty Start Date End Date Mark DO Nick [facility] [place] [address] PCP - General Family Medicine 11/28/23
--- OUTSIDE RECORDS SUMMARY | 2024-03-13 20:30 | XMS_ITS | Clinical Summary ---
Author Organization [facility] Address [address] [place] [address] Phone Care Team Providers Care Dental Associate Name Role Phone Raheem Shane MD Primary [...] series) 2010 INFLUENZA VACCINE (#1) 2023 Insurance [facility] [id number] Care Teams Dental Associate Relationship Specialty Start Date End Date Raheem Shane MD [address] [place] [address] [facility] - General 09/29/17
--- OUTSIDE RECORDS SUMMARY | 2024-03-13 20:30 | XMS_ITS | Referral Summary ---
Author Organization [facility] [address] [facility] [address] Address [address] [place] [address] Care Team Providers Care Senior Validation Engineer Name Role Phone Nick Flores Primary Care Provider [phone] Encounters Date Type Department Care Team Description 02/02/2024 3:00 PM PHOTO MASK CLEANER Office Visit [facility] Cardiology [address] [facility] [address] [place] [address] Yakov Cortes MD Longstanding persistent [...] of ankle Perforating ulcer of the foot ([facility]) 10/01/19 15 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 Social History Tobacco Use Types Packs/Day Years Used Date Smoking Tobacco: Never Smokeless Tobacco: Never Tobacco Cessation:Counseling Given: Not Answered Alcohol Use Standard Drinks/Week Comments No 0 (1 standard drink = 0.6 oz pur e alcohol) Sex and Gender Information Value Date Recorded Sex Assigned at Not on file Legal Sex Male 3:46 AM PHOTO MASK CLEANER Gender Identity Not on file Sexual Orientation Not on file Last Filed Vital Signs Vital Sign Reading Time Taken Comments Blood Pressure 144/80 02/02/2024 3:05 PM PHOTO MASK CLEANER Pulse 72 02/02/2024 3:05 PM PHOTO MASK CLEANER Temperature - - Respiratory Rate 18 11/26/2019 10:0 6 AM CDT Oxygen Saturation 93% 02/02/2024 3:05 PM PHOTO MASK CLEANER Inhaled Oxygen Concentration - - Weight 89.7 kg (197 lb 11.2 oz) 02/02/2024 3:05 PM PHOTO MASK CLEANER Height 177.8 cm (5' 10 ) 02/02/2024 3:05 PM PHOTO MASK CLEANER Body Mass Index 28.37 02/02/2024 3:05 PM PHOTO MASK CLEANER Plan of Treatment Not on file Insurance [employer] MED[employer]ARE MEDICARE SOLUTIONS [facility] MEDICARE Care Teams Senior Validation Engineer Relationship Specialty Start Date End Date Nick Flores DO PCP - General Family Medicine 11/23/21
--- OUTSIDE RECORDS SUMMARY | 2024-03-13 20:30 | XMS_ITS | Clinical Summary ---
Author Organization [facility] [address] [facility] [address] Address [address] [place] [address] Care Team Providers Care Plant Tech Name Role Phone Nick Flores Primary Care Provider [phone] Allergies No known active allergies Medications levothyroxine [...] Department Care Team Description 02/02/2024 3:00 PM CLOTHING EXAMINER Office Visit [facility] Cardiology [address] [place] [address] Yakov Cortes MD Longstanding persistent atrial fibrillation (CMS/HCC) (HCC) (Primary Dx); HTN (hypertension), benign; Chronic anticoagulation from Last 3 Months Surgical History Surgery Date Site/Laterality Comments APPENDECTOMY Appendectomy VASECTOMY Vasectomy OTHER SURGICAL HISTORY Incision of 1st metatarsal FOOT SURGERY Medical History Medical History Date Comments Neuropathy (CMS/HCC) Neuropathy; Comments: KSA 09/30/2014 - Hypercholesterolemia High choles terol; Comments: NDA 09/30/2014 - Hypertension Hypertension Atrial fibrillation (CMS/HCC) [...] on file Legal Sex Male 3:46 AM CLOTHING EXAMINER Gender Identity Not on file Sexual Orientation Not on file Obstetrics History Last Filed Vital Signs Vital Sign Reading Time Taken Comments Blood Pressure 144/80 02/02/2024 3:05 PM CLOTHING EXAMINER Pulse 72 02/02/2024 3:05 PM CLOTHING EXAMINER Temperature - - Respiratory Rate 18 11/26/2019 10:0 6 AM CDT Oxygen Saturation 93% 02/02/2024 3:05 PM CLOTHING EXAMINER Inhaled Oxygen Concentration - - Weight 89.7 kg (197 lb 11.2 oz) 02/02/2024 3:05 PM CLOTHING EXAMINER Height 177.8 cm (5' 10 ) 02/02/2024 3:05 PM CLOTHING EXAMINER Body Mass Index 28.37 02/02/2024 3:05 PM CLOTHING EXAMINER Plan of Treatment Health Maintenance Due Date [...] 8, 01/04/2017, 12/12/2015, Additional history exists Insurance [facility] MEDICARE MEDICARE SOLUTIONS [facility] MEDICARE Address: [address] [address] [place] [address] [employer] MEDICARE Care Teams Plant Tech Relationship Specialty Start Date End Date Nick Flores DO PCP - General Family Medicine 11/23/21
--- OUTSIDE RECORDS SUMMARY | 2024-03-13 20:30 | XMS_ITS | Referral Summary ---
Author Organization [facility] Address [address] [place] [address] Care Team Providers Care Acid Tester Name Role Phone Nick Flores DO Primary Care Provider [phone] Source Comments [facility],non-owned Affiliates and Associated Physician Practices is amultiple site organization consisting of ambulatory clinics and hospital sitesin [place], [place], [place] and [place]. This disclosure is being madepursuant to the Care Everywhere program and may not contain all information available regarding this patient. Last updated 17.[facility] Encounters Date Type Department Care Team Description 01/17/2024 Travel 01/17/2024 1:30 PM PHOTOENGRAVING PRINTER Office Visit [facility] - Dermatology [address], [facility] [address] [place] [address] Personal history of skin cancer [...] - Oxygen Saturation 98% 04/06/2016 10:32 AM PHOTOENGRAVING PRINTER Inhaled Oxygen Concentration - - Weight 82.6 kg (182 lb) 11/21/2020 9:08 AM CDT Height 179.1 cm (5' 10.5 ) 11/21/2020 9:08 AM CD T Body Mass Index 25.75 11/21/2020 9:08 AM CDT Plan of Treatment Not on file Care Teams Acid Tester Relationship Specialty Start Date End Date Nick Flores DO [address] [place] [address] PCP - General Family Medicine 11/28/23
--- OUTSIDE RECORDS SUMMARY | 2024-03-13 20:30 | XMS_ITS | Encounter Summary ---
Author Organization [facility] Address [address] [facility] [place] [address] Care Team Providers Care Assistant Manager Retail Name Role Phone Raheem Shane MD Primary Care Provider [phone] Nick Flores DO Primary Care Provider [phone] Encounter Details Date Type Department Care Team (Late st Contact Info) Description 2020 Lab Requisition [facility] Care DermPath Lab [address] [facility] [place] [address] Edmund Navarrete MD [address] [place] [address] Social History Tobacco Use Types [...] Diagnosis Comments DERMATOPATHOLOGY Routine 02/04/2020 3:33 AM SOAP MIXER documented in this encounter Results * DERMATOPATHOLOGY (02/04/2020 3:33 AM SOAP MIXER) Case Report Dermatopathology Report ? Case: [id number] ? Authorizing Provider: ??Edmund Navarrete MD ?Collected: ? 02/04/2020 03:33 AM ? Ordering Location: ? [facility] DermPath Lab ?Received: ?2020 12:07 PM ? Pathologist: ? Isabelle Tyler MD ? Specimens: ?? A) - Skin, right frontal scalp ? B) - Skin, left helix rim ? 0 1:24 PM SOAP MIXER DERMATOPATHOLOGY LABORATORY Final Diagnosis Specimen A. 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 SKIN, left helix rim: HYPERPLASTIC (HYPERTROPHIC) ACTINIC KERATOSIS (L57.0) 0 1:24 PM SOAP MIXER DERMATOPATHOLOGY LABORATORY Clinical History A-B: R/O SCC, BCC. 0 1:24 PM SOAP MIXER DERMATOPATHOLOGY LABORATORY Gross Description Specimen A: Received is one formalin filled container labeled with the patient's name and designated right frontal scalp. The specimen consists of a shave biopsy measuring [id number]. Jar 0. Specimen B: Received is one formalin filled container labeled with the patient's name and designated left helix rim. The specimen consists of a shave biopsy measuring 47p7j8tf. Jar 0. 0 1:24 PM SOAP MIXER DERMATOPATHOLOGY LABORATORY Microscopic Description Specimen A. SKIN, [...] half of the epidermis. 0 1:24 PM SOAP MIXER DERMATOPATHOLOGY LABORATORY Disclaimer An external and internal positive and negative controls are appropriate for the histochemical, immunohistochemical and immunofluorescence stain(s) in this case (if any), except where stated explicitly. The performance characteristics of the stain(s) cited in this report were developed and its performance characteristic determined by the Dermatopathology Laboratory at [facility], directed by Dr. Errol Hartley. These tests need not be, and therefore are not, approved by the [place] Food and Drug Administration. The tests are used for clinical purposes. Billing Codes Specimen Charges Stain Charges 32667 68308 1 1 0 1:24 PM SOAP MIXER DERMATOPATHOLOGY LABORATORY Embedded Images 0 1:24 PM SOAP MIXER DERMATOPATHOLOGY LABORATORY Pathology/Cytology TISSUE SPECIMEN FROM SKIN / Unknown 02/04/2020 3:33 AM SOAP MIXER 2020 12:07 PM SOAP MIXER Miscellaneous samples (specimen) TISSUE SPECIMEN FROM SKIN / Unknown 02/04/2020 3:33 AM SOAP MIXER 2020 12:07 PM SOAP MIXER Edmund Navarrete MD LAB - PATHOLOGY/CYTO LOGY ORDERABLES DERMATOPATHOLOGY LABORATORY [facility] - Department of Dermatology [address] [phone] documented in this encounter Visit Diagnoses Not on filedocumented in this encounter Care Teams Assistant Manager Retail Relationship Specialty Start Date End Date Raheem Shane MD [address] [place] [address] PCP - General 01/14/16 11/27/23 Nick Flores DO [address] [place] [address] PCP - General Family Medicine 11/28/23 documented as of this encounter
--- OUTSIDE RECORDS SUMMARY | 2024-03-13 20:30 | XMS_ITS | Encounter Summary ---
Author Organization [facility] Address [address] [place] [address] Care Team Providers Care Solar Panel Installation Supervisor Name Role Phone Raheem Shane MD Primary Care Provider + [phone] Nick Flores DO Primary Care Provider [phone] Encounter Details Date Type Department Care Team (Late st Contact Info) Description 02/27/2020 Lab Requisition [facility] Care DermPath Lab [address] [facility], [place] [address] Edmund Navarrete MD [address] [place] [address] Social History Tobacco Use Types [...] Diagnosis Comments DERMATOPATHOLOGY Routine 02/26/2020 3:27 AM ANIMAL CRUELTY INVESTIGATOR documented in this encounter Results * DERMATOPATHOLOGY (02/26/2020 3:27 AM ANIMAL CRUELTY INVESTIGATOR) Case Report Dermatopathology Report ? Case: [id number] ? Authorizing Provider: ??Edmund Navarrete MD ?Collected: ? 02/26/2020 03:27 AM ? Ordering Location: ? [facility] DermPath Lab ?Received: ?02/27/2020 02:02 PM ? Pathologist: ? Ayla Wylie MD ? Specimen: ?Skin, right frontal scalp ? 12:43 PM [facility] DERMATOPATHOLOGY LABORATORY Final Diagnosis Specimen A. 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 Previous Bx: [id number]. Check margins. 12:43 PM [facility] DERMATOPATHOLOGY LABORATORY Gross Description Specimen A: Received is one formalin filled container labeled with the patient's name and designated right frontal scalp. The specimen consists of a curettage and desiccation biopsy measuring [id number]. The margin is inked green. Jar 0+. 12:43 PM [facility] DERMATOPATHOLOGY LABORATORY Microscopic Description Specimen [...] cannot be ruled out. 1 12:43 PM [facility] DERMATOPATHOLOGY LABORATORY Disclaimer An external and internal positive and negative controls are appropriate for the histochemical, immunohistochemical and immunofluorescence stain(s) in this case (if any), except where stated explicitly. The performance characteristics of the stain(s) cited in this report were developed and its performance characteristic determined by the Dermatopathology Laboratory at [facility], directed by Dr. Errol Hartley. These tests need not be, and therefore are not, approved by the [place] Food and Drug Administration. The tests are used for clinical purposes. Billing Codes Specimen Charges Stain Charges 88384 1 1 12:43 PM [facility] DERMATOPATHOLOGY LABORATORY Embedded Images 1 12:43 PM [facility] DERMATOPATHOLOGY LABORATORY Pathology/Cytolo gy TISSUE SPECIMEN FROM SKIN / Unknown 02/26/2020 3:27 AM ANIMAL CRUELTY INVESTIGATOR 02/27/2020 2:02 PM ANIMAL CRUELTY INVESTIGATOR Edmund Navarrete MD LAB - PATHOLOGY/CYTO LOGY ORDERABLES DERMATOPATHOLOGY LABORATORY [facility] - Department of Dermatology [address], [address] [phone] documented in this encounter Visit Diagnoses Not on filedocumented in this encounter Care Teams Solar Panel Installation Supervisor Relationship Specialty Start Date End Date Raheem Shane MD [address] [place] [address] PCP - General 01/14/16 11/27/23 Nick Flores DO [facility] [place] [phone] PCP - General Family Medicine 11/28/23 documented as of this encounter
--- OUTSIDE RECORDS SUMMARY | 2024-03-13 20:30 | XMS_ITS | Encounter Summary ---
Author Organization [facility] Address [address] [address] Care Team Providers Care Construction And Maintenance Inspector Name Role Phone Raheem Shane MD Primary Care Provider + [phone] Nick Flores DO Primary Care Provider [phone] Encounter Details Date Type Department Care Team (Late st Contact Info) Description 09/29/2023 Lab Requisition [facility] - DermPath Lab [address] [facility] [facility] [place] [address] Edmund Navarrete MD [address] [place] [address] Social History Tobacco Use Types Packs/Day Years [...] CDT) Case Report Dermatopathology Report ? Case: [id number] ? Authorizing Provider: ??Edmund Navarrete, ?Collected: ? 09/27/2023 12:00 AM ? Ordering Location: ? [facility] - ??Received: ?09/29/2023 09:58 AM ? DermPath Lab ? Pathologist: ? Kathy Hartley, MD ? Specimens: ?? A) - Skin, right upper cutaneous lip ? B) - Skin, midline lumbar back ? C) - Skin, midline mid nose ? 1:[address] [facility] DERMATOPATHOLOGY LABORATORY Final Diagnosis Specimen A. 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 SKIN, midline mid nose: BASAL CELL CARCINOMA, NODULAR TYPE (C44.311) 1:24 PM T DERMATOPATHOLOGY LABORATORY Clinical History A-B: R/o ISK, SCC vs BCC C: R/O BCC, SCC, alondra 1:[address] [facility] DERMATOPATHOLOGY LABORATORY Gross Description Specimen A: Received is one formalin filled container labeled with the patient's name and designated right upper cutaneous lip. The specimen consists of a shave biopsy measuring 2x2x1 mm. Jar 0. Specimen B: Received is one formalin filled container labeled with the patient's name and designated midline lumbar back. The specimen consists of a shave biopsy measuring 42y66t5 mm. Jar 0. Specimen C: Received is one formalin filled container labeled with the patient's name and designated midline mid nose. The specimen consists of a shave biopsy measuring 9x8x2 mm. Jar 0. 1:[address] [facility] DERMATOPATHOLOGY LABORATORY Microscopic Description Specimen A. SKIN, [...] cytoplasmic ratio and peripheral palisading. 1:[address] [facility] DERMATOPATHOLOGY LABORATORY Disclaimer An external and internal positive and negative controls are appropriate for the histochemical, immunohistochemical and immunofluorescence stain(s) in this case (if any), except where stated explicitly. The performance characteristics of the stain(s) cited in this report were developed and its performance characteristic determined by the Dermatopathology Laboratory at [facility], directed by Dr. Errol Hartley. These tests need not be, and therefore are not, approved by the [place] Food and Drug Administration. The tests are used for clinical purposes. Billing Codes Specimen Charges Stain Charges 94414 36893 94591 1 1 1 4 1:24 PM CDT [...] - PATHOLOGY/CYTO LOGY ORDERABLES Performing Organization Address City/State/[facility] Co de Phone Number DERMATOPATHOLOGY LABORATORY [facility] - Department of Dermatology [facility] Medicine [address] [place] [address], [address] [phone] documented in this encounter Visit Diagnoses Not on filedocumented in this encounter Care Teams Construction And Maintenance Inspector Relationship Specialty Start Date End Date Raheem Shane MD [address] [place] [address] PCP - General 01/14/16 11/27/23 Nick Flores DO [address] [place] [phone] PCP - General Family Medicine 11/28/23 documented as of this encounter
--- OUTSIDE RECORDS SUMMARY | 2024-03-13 20:30 | XMS_ITS | Encounter Summary ---
Author Organization [facility] Address [address] [place] [address] Care Team Providers Care Teacher Education Instructor Name Role Phone Raheem Shane MD Primary Care Provider + [phone] Nick Flores DO Primary Care Provider [phone] Encounter Details Date Type Department Care Team (Late st Contact Info) Description 08/23/2023 Lab Requisition [facility] - DermPath Lab [address], [place] [address] Edmund Navarrete MD [address] [place] [address] Social History Tobacco Use Types Packs/Day Years [...] CDT) Case Report Dermatopathology Report ? Case: [id number] ? Authorizing Provider: ??Edmund Navarrete, ?Collected: ? [...] specimen consists of a shave biopsy measuring 19y49e7 mm. Jar 0. 5:40 PM CDT DERMATOPATHOLOGY [...] characteristic determined by the Dermatopathology Laboratory at [facility], directed by Dr. Errol Hartley. These tests need not be, and therefore are not, approved by the [place] Food and Drug Administration. The tests are used for clinical purposes. Billing Codes Specimen Charges Stain Charges 24929 1 5:40 PM CDT DERMATOPATHOLOGY LABORATORY Embedded Images 5:40 PM CDT DERMATOPATHOLOGY LABORATORY Pathology/Cytolog y TISSUE SPECIMEN FROM SKIN / Unknown 08/22/2023 08/23/2023 1:09 PM CDT Edmund Navarrete MD LAB - PATHOLOGY/CYTO LOGY ORDERABLES DERMATOPATHOLOGY LABORATORY [facility] - Department of Dermatology [address], [address] [phone] documented in this encounter Visit Diagnoses Not on filedocumented in this encounter Care Teams Teacher Education Instructor Relationship Specialty Start Date End Date Raheem Shane MD [address] [place] [address] PCP - General 01/14/16 11/27/23 Nick Flores DO [address] [place] [phone] PCP - General Family Medicine 11/28/23 documented as of this encounter
--- OUTSIDE RECORDS SUMMARY | 2024-03-13 20:30 | XMS_ITS | Encounter Summary ---
Author Organization [facility] Address [address] [place] [address] Care Team Providers Care Pullman Car Repairer Name Role Phone Raheem Shane MD Primary Care Provider + [phone] Nick Flores DO Primary Care Provider [phone] Encounter Details Date Type Department Care Team (Late st Contact Info) Description 11/06/2020 Lab Requisition [facility] Care DermPath Lab [address] [facility] [place] [address] Edmund Navarrete MD [address] [place] [address] Social History Tobacco Use Types [...] CDT) Case Report Dermatopathology Report ? Case: [id number] ? Authorizing Provider: ??Edmund Navarrete MD ?Collected: ? 11/04/2020 03:33 AM ? Ordering Location: ? [facility] DermPath Lab ?Received: ?11/06/2020 05:57 AM ? [...] specimen consists of a shave biopsy measuring 8p2b2ci and 9h1n0es. Jar 0. 1 2:59 PM CDT DERMATOPATHOLOGY [...] characteristic determined by the Dermatopathology Laboratory at [facility], directed by Dr. Errol Hartley. These tests need not be, and therefore are not, approved by the [place] Food and Drug Administration. The tests are used for clinical purposes. Billing Codes Specimen Charges Stain Charges 15304 1 1 2:59 PM CDT DERMATOPATHOLOGY LABORATORY Embedded Images 1 2:59 PM CDT DERMATOPATHOLOGY LABORATORY Pathology/Cytolo gy TISSUE SPECIMEN FROM SKIN / Unknown 11/04/2020 3:33 AM CDT 11/06/2020 5:57 AM CDT Edmund Navarrete MD LAB - PATHOLOGY/CYTO LOGY ORDERABLES DERMATOPATHOLOGY LABORATORY [facility] - Department of Dermatology [facility] Medicine [address] [place] [address], [address] [phone] documented in this encounter Visit Diagnoses Not on filedocumented in this encounter Care Teams Pullman Car Repairer Relationship Specialty Start Date End Date Raheem Shane MD [address] [place] [address] PCP - General 01/14/16 11/27/23 Nick Flores DO [address] [place] [phone] PCP - General Family Medicine 11/28/23 documented as of this encounter
--- NOTE | 2024-03-13 20:39 | ED_ITS ---
HPI - Dental/Oral General Chief complaint: Dental/Oral Stated complaint: left bottom tooth extraction bleeding all day Time Seen by Provider: 03/13/24 20:10 History of Present Illness HPI Narrative: Patient is an 89-year-old male who presents to the ER with dental bleeding. He reports he went to a dentist earlier today for tooth extraction. His dentist extracted his left bottom molar around noon. Patient reports he has been ?bleeding since around 12:30pm. He endorses a history of atrial fib for which he takes Xarelto. Patient denies any history of diabetes, high blood pressure, COPD, kidney disease. His only other medical history includes arthritis. Patient denies any jaw pain, nausea, neck stiffness, lightheadedness, dizziness. Related Data Home Medications ?Medication ?Instructions ?Recorded ?Confirmed ?Last Taken ?Type metoprolol succinate 50 mg 50 mg PO DAILY 01/22/19 01/19/24 05/25/23 History tablet,extended release 24 hr rivaroxaban 20 mg tablet (Xarelto) 20 mg PO QPM 01/22/19 01/19/24 05/24/23 History sodium chloride 5 % eye ointment 1 applic EACH EYE HS 05/25/23 01/19/24 05/24/23 History (Ana Luisa 128) Allergies Allergy/AdvReac Type Severity Reaction Status Date / Time No Known Allergies Allergy Unknown Verified 03/13/24 19:48 Review of Systems 2 Review of Systems: All systems reviewed & are unremarkable except as noted in HPI and below PMFSH Past Medical History Medical History Callus of foot Anticoagulant long-term use Osteoarthritis Hypothyroidism Hypertension Atrial fibrillation Neuropathy Non-pressure chronic ulcer of other part of left foot with fat layer exposed Surgical History Surgical History H/O left inguinal hernia repair lih repair w mesh davinci assisted 12/03/20 History of foot surgery History of appendectomy 1969 Family History Family History Mother Family history of malignant neoplasm, Onset Age: 62 Sibling Family history of malignant neoplasm, Onset Age: 45 Father Family history of cardiovascular disease Social History Social History Smoking status: Never smoker Second hand tobacco smoke exposure: Yes Alcohol intake: never Substance use: never Substance use type: does not use Do You Feel Safe in your Home?: Yes Lack of Transportation: No Lack of Food: Never True Current Housing: I Have Housing Concerned About Future Housing: No Difficulty Paying Gas/Electric Bills: No Difficulty Paying for Meds: No Currently Unemployed: No Education: Master's Degree or Higher Difficulty w/ Childcare or Family Care: No Living arrangements: with family Occupation/Education: retired 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 HEAD: Normocephalic, atraumatic. NECK: Supple. No adenopathy, no masses. MOUTH: L lower (previous molar site) oozing moderate amount of blood. RESPIRATORY: Airway patent, respirations nonlabored. Clear to auscultation bilaterally, no rales, rhonchi, wheezing. CARDIOVASCULAR: Regular rate and rhythm without murmurs, rubs, or gallops. Peripheral pulses 2+ and equal bilaterally. ABDOMINAL: Soft, nontender, nondistended, no hepatosplenomegaly. Normoactive BS. MUSCULOSKELETAL: Moves all extremities. Strength/ROM intact without gross deformities. SKIN: Warm, dry, normal color. No rashes. NEURO: A&O X3. Speech clear. Cranial nerves II-XII grossly intact. Steady gait. No ataxic movements. PSYCHIATRIC: Appropriate mood and affect. Normal interaction. Course Vital Signs Vital signs: Vital Signs Temperature 37.0 C 03/13/24 19:45 Pulse Rate 95 03/13/24 19:45 Respiratory Rate 20 03/13/24 19:45 Blood Pressure 154/97 H 03/13/24 19:45 Pulse Oximetry 97 03/13/24 19:45 Oxygen Delivery Room Air 03/13/24 19:45 Temperature 36.8 C 03/14/24 00:53 Pulse Rate 70 03/14/24 00:53 Respiratory Rate 15 03/14/24 00:53 Blood Pressure 140/93 H 03/14/24 00:53 Pulse Oximetry 96 03/14/24 00:53 Oxygen Delivery Room Air 03/13/24 19:45 MDM - Dental/Oral MDM Narrative Medical decision making narrative: Patient is an 89-year-old male who presents to the ER with dental bleeding. He reports he went to a dentist earlier today for tooth extraction. His dentist extracted his left bottom molar around noon. Patient reports he has been ?bleeding since around 12:30pm. He endorses a history of atrial fib for which he takes Xarelto. Patient denies any history of diabetes, high blood pressure, COPD, kidney disease. His only other medical history includes arthritis. Patient denies any jaw pain, nausea, neck stiffness, lightheadedness, dizziness. Labs Ordered: None necessary Imaging Ordered: None necessary intially (CBC, CMP, INR and PTT ordered after three hours of observation without bleeding subsiding) Medications Ordered: TXA topical, surgicel, Results: 2144- Patient reports the TXA application helped relieve some of the bleeding. Will apply another dose to the site. Diagnosis: Surgical wound hemorrhage following dental procedure Consults: None necessary, follow-up outpatient with dentist in the morning Patient Education/Shared MDM: Per the Algorithm for anticoagulant discontinuation in individuals undergoing elective surgery , pt is at moderate risk for bleeding and should hold his Xarelto today, then resume his Xarelto tomorrow as regularly scheduled. Information shared with and extensive education provided to patient and his . 2229- Upon further examination, pt continues to have bleeding from his left lower molar site. Will draw CBC, CMP, INR, PTT and place Surgicel with TXA on site. ER MD consulted for further suggestions. 0-Pt's blood work results were unremarkable and consistent with previous blood work results. Upon re-examination, pt's bleeding has slowed down, but still continues to ooze. Per the ORBIT Bleeding Risk Score for Atrial Fibrillation, pt's score indicates low risk. ORBIT Bleeding Risk Score for Atrial Fibrillation from [email or web address] on 03/13/2024 All calculations should be rechecked by clinician prior to use RESULT SUMMARY: 2 points ORBIT Score Low risk Risk group 2.4 bleeds Per 100 patient-years INPUTS: Sex ?> 0 = Male Hemoglobin <13 g/dL or hematocrit <40% ?> 0 = No Age >74 years ?> 1 = Yes Bleeding history ?> 0 = No GFR <60 mL/min/1.73 m2 ?> 0 = No Treatment with antiplatelet agents ?> 1 = Yes Patient and his verbalized they would like to be discharged home. Strict return precautions given to patient and his . Patient and his verbalized understanding and are in agreement with plan. Vital signs stable at the time of discharge. Oral bleeding is controlled at time of discharge. All questions answered. Differential Diagnosis Differential diagnosis: Likely other (Bleeding gums, surgical wound hemorrhage following dental procedure,) Lab Data 03/13/24 23:02 03/13/24 23:02 Labs: Lab Results 03/13/24 Range/Units 23:02 WBC 10.8 H (4.5-10.0) K/mm3 RBC 4.31 L (4.6-6.20) M/mm3 Hgb 14.4 (14.0-18.0) g/dL Hct 43.3 (42.0-52.0) % MCV 100.5 H (80-100) fl MCH 33.4 (26-34) pg MCHC 33.3 (32-36) g/dl RDW 13.3 (11.5-14.5) % Plt Count 176 (150-375) k/mm3 MPV 9.9 (7.4-10.4) fl Immature Gran % (Auto) 0.4 (0-0.5) % Neut % (Auto) 70.9 (45.5-73.1) % Lymph % (Auto) 15.4 L (18.3-44.2) % [place] % (Auto) 12.0 H (2.6-8.5) % Eos % (Auto) 0.7 (0-4.4) % Baso % (Auto) 0.6 (0.2-1.2) % Lymph # (Auto) 1.66 (0.9-3.2) K/mm3 [place] # (Auto) 1.3 H (0.1-0.6) K/mm3 Eos # (Auto) 0.1 (0-0.3) K/mm3 Baso # (Auto) 0.1 (0.0-0.1) K/mm3 Abs Immat Gran (auto) 0.04 H (0.00-0.031) K/mm3 Absolute Neuts (auto) 7.7 H (1.3-6.7) K/mm3 Absolute Nucleated RBC 0.000 (0.0-0.012) K/mm3 Nucleated RBC % 0.0 (0.0-0.2) % PT 15.4 H (11.1-14.7) Seconds INR 1.2 APTT 30.3 (22.3-36.8) Seconds Sodium 139 (137-145) mmol/L Potassium 4.4 (3.4-5.0) mmol/L Chloride 101 (98-107) mmol/L Carbon Dioxide 31 H (22-30) mmol/L Anion Gap 7 (4-12) mmol/L BUN 29 H (9-20) mg/dL Creatinine 0.82 (0.7-1.3) mg/dL Estim Creat Clear Calc 55 ml/min Estimated GFR > 60 (59 - ) Glucose 99 (65-110) mg/dL Calcium 8.9 (8.4-10.2) mg/dL Total Bilirubin 1.1 (0.2-1.3) mg/dL AST 21 (17-59) U/L ALT 18 (6-50) U/L Alkaline Phosphatase 59 (38-126) U/L Total Protein 7.0 (6.3-8.2) g/dL Albumin 4.1 (3.5-5.1) g/dL Discharge Plan Discharge Clinical Impression: Surgical wound hemorrhage after dental procedure Patient Disposition: Home, Self-Care Condition: Guarded Prognosis Instructions: Antibiotic Form, Dental Laceration (ED) Additional Instructions: As discussed, please return to the ER with an worsening symptoms. Follow-up with your dentist tomorrow morning. Plan to resume your Xarelto tomorrow as scheduled. Patient Language: Chilean Prescriptions: No Action epinephrine 0.3 mg/0.3 mL auto-injector 0.3 mg IM ONCE Qty: 2 0RF Rx Instructions: as a single dose; may repeat once metoprolol succinate 50 mg Tablet Extended Release 24 Hr 50 mg PO DAILY Xarelto 20 mg Tablet 20 mg PO QPM sodium chloride [Ana Luisa 128] 5 % Ointment 1 applic EACH EYE HS levothyroxine 75 mcg tablet 75 mcg PO DAILY Qty: 90 1RF Follow-up/Referrals: Lamonte Berman DO [Primary Care Provider] - Time of Disposition: 00:40
[2024-03-13] MEDS: SODIUM CHLORIDE 0.9% IV 50 ML, TRANEXAMIC ACID 1,000 MG TOPICAL (20:53)
--- NOTE | 2024-03-13 20:54 | PC.NURSE ---
Per MAILROOM COURIER Gardenia she verbally orders for the tranexamic acid to be soaked in gauze and applied pressure to pt mouth to help clot up blood. This N used about half of the 10 ml bottle to soak the gauze.
[2024-03-13] MEDS: CELLULOSE OXIDIZED 2 x 3 INCH 1 PKT XX (22:53)
[2024-03-13] MEDS: TRANEXAMIC ACID 1,000 MG/10 ML AMPUL 1000 MG TOPICAL (22:53)
[2024-03-13 23:08] LABS: Basophils Absolute Auto 0.1 K/mm3 (0.0-0.1); Basophils Percent Auto 0.6 % (0.2-1.2); Eosinophils Absolute Auto 0.1 K/mm3 (0-0.3); Eosinophils Percent Auto 0.7 % (0-4.4); Hematocrit 43.3 % (42.0-52.0); Hemoglobin 14.4 g/dL (14.0-18.0); Immature Granulocyte Absolute 0.04 K/mm3 (0.00-0.031); Immature Granulocyte Percent A 0.4 % (0-0.5); Lymphocytes Absolute Auto 1.66 K/mm3 (0.9-3.2); Lymphocytes Percent Auto 15.4 % (18.3-44.2); Mean Corpuscular HGB Conc 33.3 g/dl (32-36); Mean Corpuscular Hemoglobin 33.4 pg (26-34); Mean Corpuscular Volume 100.5 fl (80-100); Mean Platelet Volume 9.9 fl (7.4-10.4); Monocytes Absolute Auto 1.3 K/mm3 (0.1-0.6); Neutrophils Absolute Auto 7.7 K/mm3 (1.3-6.7); Neutrophils Percent Auto 70.9 % (45.5-73.1); Platelet Count Result 176 k/mm3 (150-375); Red Blood Count 4.31 M/mm3 (4.6-6.20); Red Cell Distribution Width 13.3 % (11.5-14.5); White Blood Count 10.8 K/mm3 (4.5-10.0)
[2024-03-13 23:18] LABS: Alanine Aminotransferase 18 U/L (6-50); Albumin Level 4.1 g/dL (3.5-5.1); Alkaline Phosphatase 59 U/L (38-126); Anion Gap 7 mmol/L (4-12); Aspartate Amino Transferase 21 U/L (17-59); Bilirubin,Total 1.1 mg/dL (0.2-1.3); Blood Urea Nitrogen 29 mg/dL (9-20); Calcium 8.9 mg/dL (8.4-10.2); Carbon Dioxide 31 mmol/L (22-30); Chloride 101 mmol/L (98-107); Estimated CRCL calculation 55 ml/min; Estimated Glomerular Filt Rate > 60; Glucose 99 mg/dL (65-110); Potassium 4.4 mmol/L (3.4-5.0); Sodium 139 mmol/L (137-145)
[2024-03-13 23:19] LABS: INR 1.2; Prothrombin Time 15.4 Seconds (11.1-14.7)
[2024-03-13 23:20] LABS: Partial Thromboplastin Time 30.3 Seconds (22.3-36.8)
[2024-03-13 23:34] VITALS: BP 142/88; PULSE 89; RESP 18; O2SAT 98
[2024-03-14 00:53] VITALS: BP 140/93; PULSE 70; RESP 15; TEMP 36.8; O2SAT 96
== END 2024-03-14 00:54 | disposition home or self-care (01) ==
PROVIDERS: Emergency Provider Registered Nurse; PCP Internal Medicine
DX: K91.840 Postprocedural hemorrhage of a digestive system organ or structure following a digestive system procedure (principal); Z79.01 Long term (current) use of anticoagulants; M19.90 Unspecified osteoarthritis, unspecified site; E03.9 Hypothyroidism, unspecified; I10 Essential (primary) hypertension; I48.91 Unspecified atrial fibrillation
CPT/HCPCS: 36415; 80053; 85025; 85610; 85730; 99283

== ENCOUNTER 2024-06-04 10:07 | Outpatient (CLI) | payer MEDICARE, SELFPAY ==
--- OUTSIDE RECORDS SUMMARY | 2024-06-04 11:27 | XMS_ITS | Encounter Summary ---
Author Organization [facility] Address [address] [address] Care Team Providers Care Night Club Manager Name Role Phone Raheem Shane MD Primary Care Provider [phone] Nick Flores DO Primary Care Provider [phone] Encounter Details Date Type Department Care Team (Late st Contact Info) Description 2020 Lab Requisition [facility] Care DermPath Lab [address] [facility], [place] [phone] Edmund Navarrete MD [address] [place] [address] Social History Tobacco Use Types Packs/Day Years Used Date Smoking Tobacco: Never Smokeless Tobacco: Never Alcohol Use Standard Drinks/Week Comments No 0 (1 standard drink = 0.6 oz pur e alcohol) Sex and Gender Information Value Date Recorded Sex Assigned at Not on file Legal Sex Male 5:24 PM STAFF NURSE Gender Identity Not on file Sexual Orientation Not on file documented as of this encounter Plan of Treatment Not on file documented as of this encounter Procedures Procedure Name Priority Date/Time Associated Diagnosis Comments DERMATOPATHOLOGY Routine 02/04/2020 3:33 AM STAFF NURSE documented in this encounter Results * DERMATOPATHOLOGY (02/04/2020 3:33 AM STAFF NURSE) Case Report Dermatopathology Report Case: [id number] Authorizing Provider: Edmund Navarrete MD Collected: 02/04/2020 03:33 AM Ordering Location: [facility] DermPath Lab Received: 2020 12:07 PM Pathologist: Isabelle Tyler MD Specimens: A) - Skin, right frontal scalp B) - Skin, left helix rim 0 1:24 PM [facility] DERMATOPATHOLOGY LABORATORY Final Diagnosis Specimen A. 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 SKIN, left helix rim: HYPERPLASTIC (HYPERTROPHIC) ACTINIC KERATOSIS (L57.0) 0 1:24 PM STAFF NURSE DERMATOPATHOLOGY LABORATORY Clinical History A-B: R/O SCC, BCC. 0 1:24 PM STAFF NURSE DERMATOPATHOLOGY LABORATORY Gross Description Specimen A: Received is one formalin filled container labeled with the patient's name and designated right frontal scalp. The specimen consists of a shave biopsy measuring 47h22i8pd. Jar 0. Specimen B: Received is one formalin filled container labeled with the patient's name and designated left helix rim. The specimen consists of a shave biopsy measuring 11p2z5ix. Jar 0. 0 1:24 PM STAFF NURSE DERMATOPATHOLOGY LABORATORY Microscopic Description Specimen A. SKIN, [...] half of the epidermis. 0 1:24 PM STAFF NURSE DERMATOPATHOLOGY LABORATORY Disclaimer An external and internal positive and negative controls are appropriate for the histochemical, immunohistochemical and immunofluorescence stain(s) in this case (if any), except where stated explicitly. The performance characteristics of the stain(s) cited in this report were developed and its performance characteristic determined by the Dermatopathology Laboratory at [facility], directed by Dr. Errol Hartley. These tests need not be, and therefore are not, approved by the [place] Food and Drug Administration. The tests are used for clinical purposes. Billing Codes Specimen Charges Stain Charges 69632 39744 1 1 0 1:24 PM STAFF NURSE DERMATOPATHOLOGY LABORATORY Embedded Images 0 1:24 PM STAFF NURSE DERMATOPATHOLOGY LABORATORY Pathology/Cytology TISSUE SPECIMEN FROM SKIN / Unknown 02/04/2020 3:33 AM STAFF NURSE 2020 12:07 PM STAFF NURSE Miscellaneous samples (specimen) TISSUE SPECIMEN FROM SKIN / Unknown 02/04/2020 3:33 AM STAFF NURSE 2020 12:07 PM STAFF NURSE Edmund Navarrete MD LAB - PATHOLOGY/CYTOLOGY ORD ERABLES Final Result DERMATOPATHOLOGY LABORATORY [facility] - Department of Dermatology [address], [address] [phone] documented in this encounter Visit Diagnoses Not on filedocumented in this encounter Care Teams Night Club Manager Relationship Specialty Start Date End Date Raheem Shane MD [address] [place] [address] PCP - General 01/14/16 11/27/23 Nick Flores DO [address] [place] [address] PCP - General Family Medicine 11/28/23 documented as of this encounter
--- OUTSIDE RECORDS SUMMARY | 2024-06-04 11:27 | XMS_ITS | Clinical Summary ---
Author Organization [facility] [place] [address] [facility] [address] Address [address] [place] [address] Care Team Providers Care Inventory Audit Clerk Name Role Phone Nick Flores Primary Care Provider [phone] Allergies No known active allergies Medications levothyroxine (SYNTHROID) 75 mcg tablet 11/21/2021 Active Xarelto 20 mg tablet TAKE 1 TABLET(20 MG) BY MOUTH DAILY 90 tablet 1 03/06/2024 Active metoprolol XL (TOPROL-XL) 50 mg extended release tablet TAKE 1 TABLET(50 MG) BY MOUTH DAILY 90 tablet 1 03/06/2024 Active Active Problems Problem Noted Date Diagnosed Date Nonrheumatic mitral valve regurgitation 10/13/19 23 Other chest pain 11/23/2021 Chronic fatigue 11/23/2021 Chronic anticoagulation 12/12/2017 Atrial fibrillation 10/31/2017 HTN (hypertension), benign 10/31/2017 Hypothyroidism (acquired) 10/31/2017 Nontraumatic rupture of tendons of foot and ankl e 11/15/2014 Overview (05/21/2016): Nontraumatic rupture of tendons of foot and ankle, right 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 Overview (05/21/2016): Acquired cavovarus foot deformity Nontraumatic rupture of tendon 09/30/2014 Overview (05/21/2016): Spontaneous rupture of tendon of ankle Perforating ulcer of the foot 09/30/2014 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 Surgical History Surgery Date Site/Laterality Comments APPENDECTOMY Appendectomy VASECTOMY Vasectomy OTHER SURGICAL HISTORY Incision of 1st metatarsal FOOT SURGERY Medical History Medical History Date Comments Neuropathy Neuropathy; Comm ents: [facility] 09/30/2014 - Hypercholesterolemia High choles terol; Comments: [facility] 09/30/2014 - Hypertension Hypertension Atrial fibrillation (HCC) Family History Medical History Relation Name [...] on file 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 Gender Identity Not on file Sexual Orientation Not on file Obstetrics History Last Filed Vital Signs Vital Sign Reading Time Taken Comments Blood Pressure 144/80 02/02/2024 3:05 PM ELECTRONICS WORKER Pulse 72 02/02/2024 3:05 PM ELECTRONICS WORKER Temperature - - Respiratory Rate 18 11/26/2019 10:0 6 AM CDT Oxygen Saturation 93% 02/02/2024 3:05 PM ELECTRONICS WORKER Inhaled Oxygen Concentration - - Weight 89.7 kg (197 lb 11.2 oz) 02/02/2024 3:05 PM ELECTRONICS WORKER Height 177.8 cm (5' 10 ) 02/02/2024 3:05 PM ELECTRONICS WORKER Body Mass Index 28.37 02/02/2024 3:05 PM ELECTRONICS WORKER Plan of Treatment Health Maintenance Due Date Last Done Comments Depression Screening 1935 Hepatitis B Screening 1953 Zoster Vaccine (1 of 2) 1985 Well Visit 65+ 02/06/2000 Pneumococcal vaccine 65+ (2 of 2 - PPSV23) 12/30/2015 12/29/2014 DTaP/Tdap/Td Vaccine (2 - Td or Tdap) 12/25/2021 12/26/2011 Fall Risk Assessment 11/23/2022 11/23/2021 Influenza Vaccine (#1) 2023 8, 01/04/2017, 12/12/2015, Additional history exists Insurance [facility] MEDICARE [facility] MEDICARE ADVANTAGE [facility] [employer] Care Teams Inventory Audit Clerk Relationship Specialty Start Date End Date Nick Flores DO PCP - General Family Medicine 11/23/21
--- OUTSIDE RECORDS SUMMARY | 2024-06-04 11:27 | XMS_ITS | Referral Summary ---
Author Organization [facility] [place] [address] [facility] [address] Address [address] [place] [address] Care Team Providers Care Stem Maker Name Role Phone Nick Flores Primary Care Provider [phone] Allergies No known active allergies Medications levothyroxine [...] 09/30/2014 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 Social History Tobacco Use Types Packs/Day Years Used Date Smoking Tobacco: Never Smokeless Tobacco: Never Tobacco Cessation:Counseling Given: Not Answered Alcohol Use Standard Drinks/Week Comments No 0 (1 standard drink = 0.6 oz pur e alcohol) Sex and Gender Information Value Date Recorded Sex Assigned at Not on file 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 Gender Identity Not on file Sexual Orientation Not on file Last Filed Vital Signs Vital Sign Reading Time Taken Comments Blood Pressure 144/80 02/02/2024 3:05 PM IRONWORKER APPRENTICE SHOP Pulse 72 02/02/2024 3:05 PM IRONWORKER APPRENTICE SHOP Temperature - - Respiratory Rate 18 11/26/2019 10:0 6 AM CDT Oxygen Saturation 93% 02/02/2024 3:05 PM IRONWORKER APPRENTICE SHOP Inhaled Oxygen Concentration - - Weight 89.7 kg (197 lb 11.2 oz) 02/02/2024 3:05 PM IRONWORKER APPRENTICE SHOP Height 177.8 cm (5' 10 ) 02/02/2024 3:05 PM IRONWORKER APPRENTICE SHOP Body Mass Index 28.37 02/02/2024 3:05 PM IRONWORKER APPRENTICE SHOP Plan of Treatment Not on file Insurance [facility] MEDICARE UHC MEDICARE ADVANTAGE [facility] MEDIC[facility] Care Teams Stem Maker Relationship Specialty Start Date End Date Nick Flores DO PCP - General Family Medicine 11/23/21
--- OUTSIDE RECORDS SUMMARY | 2024-06-04 11:27 | XMS_ITS | Clinical Summary ---
Author Organization [facility] Address [address] [place] [address] Care Team Providers Care Superintendent Mechanical Name Role Phone Nick Flores DO Primary Care Provider [phone] Source Comments [facility],non-owned Affiliates and Associated Physician Practices is amultiple site organization consisting of ambulatory clinics and hospital sitesin [place], [place], [place] and [place]. This disclosure is being madepursuant to the Care Everywhere program and may not contain all information available regarding this patient. Last updated 17.[facility] Allergies No known active allergies Medications * Be aware that medications may not be up to date on this document. Alwaysverify current medications with the patient. levothyroxine (SYNTHROID) 25 MCG tablet Take by mouth DAILY. 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 Gender Identity Not on file Sexual Orientation Not on file Last Filed Vital Signs Vital Sign Reading Time Taken Comments Blood Pressure 134/80 11/21/2020 12:02 PM CDT Pulse 59 11/21/2020 12:02 PM CDT Temperature - - Respiratory Rate - - Oxygen Saturation 98% 04/06/2016 10:32 AM FIRST CALENDER WORKER Inhaled Oxygen Concentration - - Weight 82.6 [...] - 1-dose 75+ series) 2010 COVID-19 VACCINE ( - 2023-2 5 season) 2023 DEPRESSION SCREENING 02/15/2024 MEDICARE AWV CALENDAR YEAR 2024 INFLUENZA VACCINE (Season Ended) 2024 HEPATITIS B VACCINE Aged Out No longe r eligible based on patient's age to complete this topic HIB VACCINE Aged Out No longer eligi ble based on patient's age to complete this topic HPV VACCINE Aged Out No longer eligi ble based on patient's age to complete this topic MENINGOCOCCAL (Group B) VACC INE SHARED DECISION-MAKING Aged Out No longer eligibl e based on patient's age to complete this topic MENINGOCOCCAL GROUPS A/C/Y/W VACCINE Aged Out No longer eligible b ased on patient's age to complete this topic Insurance [employer]ET[employer] AETNA MEDICARE ADV Care Teams Superintendent Mechanical Relationship Specialty Start Date End Date Nick Flores DO [facility] [place] [address] PCP - General Family Medicine 11/28/23
--- OUTSIDE RECORDS SUMMARY | 2024-06-04 11:27 | XMS_ITS | Encounter Summary ---
Author Organization [facility] Address [address] [place] [address] Care Team Providers Care Cardiology Associate Name Role Phone Raheem Shane MD Primary Care Provider [phone] Nick Flores DO Primary Care Provider [phone] Encounter Details Date Type Department Care Team (Late st Contact Info) Description 11/06/2020 Lab Requisition [facility] Care DermPath Lab [address] 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 Gender Identity Not on file Sexual Orientation Not on file documented as of this encounter Plan of Treatment Not on file documented as of this encounter Procedures Procedure Name Priority Date/Time Associated Diagnosis Comments DERMATOPATHOLOGY Routine 11/04/2020 3:33 AM CDT documented in this encounter Results * DERMATOPATHOLOGY (11/04/2020 3:33 AM CDT) Case Report Dermatopathology Report Case: [id number] Authorizing Provider: Edmund Navarrete MD Collected: 11/04/2020 03:33 AM Ordering Location: [facility] DermPath Lab Received: 11/06/2020 05:57 AM Pathologist: Ayla Wylie MD Specimen: Skin, left lower helix rim 2:59 PM CDT DERMATOPATHOLOGY LABORATORY Final Diagnosis Specimen A. SKIN, left lower helix rim: BASAL CELL CARCINOMA, INFILTRATIVE PATTERN (C44.219) 2:59 PM CDT DERMATOPATHOLOGY LABORATORY Clinical History R/O SCC, scar. 2:59 PM CDT DERMATOPATHOLOGY LABORATORY Gross Description Specimen A: Received is one formalin filled container labeled with the patient's name and designated left lower helix rim. The specimen consists of a shave biopsy measuring 7o1n2lv and 3m4b3en. Jar 0. 2:59 PM CDT DERMATOPATHOLOGY LABORATORY Microscopic Description Specimen A. SKIN, left lower helix rim: Within the dermis there are nodular aggregates of basaloid cells associated with fibromyxoid stroma and epithelial-stromal clefts. At the advancing margin of the neoplasm, there are smaller angulated nests that infiltrate the dermis. 2:59 PM CDT DERMATOPATHOLOGY LABORATORY Disclaimer An external and internal positive and negative controls are appropriate for the histochemical, immunohistochemical and immunofluorescence stain(s) in this case (if any), except where stated explicitly. The performance characteristics of the stain(s) cited in this report were developed and its performance characteristic determined by the Dermatopathology Laboratory at [facility], directed by Dr. Errol Hartley. These tests need not be, and therefore are not, approved by the [place] Food and Drug Administration. The tests are used for clinical purposes. Billing Codes Specimen Charges Stain Charges 98882 1 2:59 PM CDT DERMATOPATHOLOGY LABORATORY Embedded Images 2:59 PM CDT DERMATOPATHOLOGY LABORATORY Pathology/Cytolo gy TISSUE SPECIMEN FROM SKIN / Unknown 11/04/2020 3:33 AM CDT 11/06/2020 5:57 AM CDT us Edmund Navarrete MD LAB - PATHOLOGY/CYTOLOGY ORD ERABLES Final Result DERMATOPATHOLOGY LABORATORY [facility] - Department of Dermatology [address], [address] [phone] documented in this encounter Visit Diagnoses Not on filedocumented in this encounter Care Teams Cardiology Associate Relationship Specialty Start Date End Date Raheem Shane MD [address] [place] [address] PCP - General 01/14/16 11/27/23 Nick Flores DO [address] [place] [address] PCP - General Family Medicine 11/28/23 documented as of this encounter
--- OUTSIDE RECORDS SUMMARY | 2024-06-04 11:27 | XMS_ITS | Encounter Summary ---
Author Organization [facility] Address [address] [place] [address] Care Team Providers Care Intelligence Engineer Name Role Phone Raheem Shane MD Primary Care Provider [phone] Nick Flores DO Primary Care Provider [phone] Encounter Details Date Type Department Care Team (Late st Contact Info) Description 08/23/2023 Lab Requisition [facility] - DermPath Lab [address] [facility], [place] [address] Edmund Navarrete MD [address] [place] [address] Social History Tobacco Use Types Packs/Day Years Used Date Smoking Tobacco: Never Smokeless Tobacco: Never Alcohol Use Standard Drinks/Week Comments No 0 (1 standard drink = 0.6 oz pur e alcohol) Sex and Gender Information Value Date Recorded Sex Assigned at Not on file 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 - Received: 08/23/2023 01:09 PM DermPath Lab Pathologist: Susana Brooks MD Specimen: Skin, dorsal right thumb @ MCP joint 5:40 PM CDT DERMATOPATHOLOGY LABORATORY Final Diagnosis [...] specimen consists of a shave biopsy measuring [id number] mm. Jar 0. 5:40 PM CDT DERMATOPATHOLOGY [...] characteristic determined by the Dermatopathology Laboratory at [facility], directed by Dr. Errol Hartley. These tests need not be, and therefore are not, approved by the [place] Food and Drug Administration. The tests are used for clinical purposes. Billing Codes Specimen Charges Stain Charges 28718 1 5:40 PM CDT DERMATOPATHOLOGY LABORATORY Embedded Images 5:40 PM CDT DERMATOPATHOLOGY LABORATORY Pathology/Cytolog y TISSUE SPECIMEN FROM SKIN / Unknown 08/22/2023 08/23/2023 1:09 PM CDT Edmund Navarrete MD LAB - PATHOLOGY/CYTOLOGY ORD ERABLES Final Result DERMATOPATHOLOGY LABORATORY [facility] - Department of Dermatology [facility] Medicine [address] [place] [address], [address] [phone] documented in this encounter Visit Diagnoses Not on filedocumented in this encounter Care Teams Intelligence Engineer Relationship Specialty Start Date End Date Raheem Shane MD [address] [place] [phone] PCP - General 01/14/16 11/27/23 Nick Flores DO [address] [place] [phone] PCP - General Family Medicine 11/28/23 documented as of this encounter
--- OUTSIDE RECORDS SUMMARY | 2024-06-04 11:27 | XMS_ITS | Clinical Summary ---
Author Organization [facility] Address [address] [place] [address] Phone Care Team Providers Care Byproducts Supervisor Name Role Phone Raheem Shane MD Primary Care Provider [phone] Social History Tobacco Use Types Packs/Day Years Used Date Smoking Tobacco: Never Assessed Sex and Gender Information Value Date Recorded Sex Assigned at Not on file Legal Sex Male 2:41 PM CDT Gender Identity Not on file Sexual Orientation Not on file Plan of Treatment Health Maintenance Due Date Last Done Comments DTAP/TDAP/TD VACCINES (1 - Tdap) 1954 PNEUMOCOCCAL VACCINE 50+ YEARS (1 of 1 - PCV) 02/05/19 85 ZOSTER VACCINE (1 of 2) 1985 RSV VACCINE (60+ or ) (1 - 1-dose 75+ series) 2010 INFLUENZA VACCINE (#1) 2023 Insurance [facility] [id number] Care Teams Byproducts Supervisor Relationship Specialty Start Date End Date Raheem Shane MD [address] [place] [phone] PCP - General 09/29/17
--- OUTSIDE RECORDS SUMMARY | 2024-06-04 11:27 | XMS_ITS | Encounter Summary ---
Author Organization [facility] Address [address] [facility] [place] [address] Care Team Providers Care Supply Planner Name Role Phone Raheem Shane MD Primary Care Provider [phone] Nick Flores DO Primary Care Provider [phone] Encounter Details Date Type Department Care Team (Late st Contact Info) Description 02/27/2020 Lab Requisition [facility] Care DermPath Lab [address] 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 Gender Identity Not on file Sexual Orientation Not on file documented as of this encounter Plan of Treatment Not on file documented as of this encounter Procedures Procedure Name Priority Date/Time Associated Diagnosis Comments DERMATOPATHOLOGY Routine 02/26/2020 3:27 AM PAD EXTRACTION TENDER documented in this encounter Results * DERMATOPATHOLOGY (02/26/2020 3:27 AM PAD EXTRACTION TENDER) Case Report Dermatopathology Report Case: [id number] Authorizing Provider: Edmund Navarrete MD Collected: 02/26/2020 03:27 AM Ordering Location: [facility] DermPath Lab Received: 02/27/2020 02:02 PM Pathologist: Ayla Wylie MD Specimen: Skin, right frontal scalp 12:43 PM [facility] DERMATOPATHOLOGY LABORATORY Final Diagnosis Specimen A. 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 Previous Bx: [id number]. Check margins. 12:43 PM [facility] DERMATOPATHOLOGY LABORATORY Gross Description Specimen A: Received is one formalin filled container labeled with the patient's name and designated right frontal scalp. The specimen consists of a curettage and desiccation biopsy measuring 16o48y7am. The margin is inked green. Jar 0+. 12:43 PM [facility] DERMATOPATHOLOGY LABORATORY Microscopic Description Specimen A. [...] squamous cell carcinoma cannot be ruled out. 12:43 PM [facility] DERMATOPATHOLOGY LABORATORY Disclaimer An external and internal positive and negative controls are appropriate for the histochemical, immunohistochemical and immunofluorescence stain(s) in this case (if any), except where stated explicitly. The performance characteristics of the stain(s) cited in this report were developed and its performance characteristic determined by the Dermatopathology Laboratory at [facility], directed by Dr. Errol Hartley. These tests need not be, and therefore are not, approved by the [place] Food and Drug Administration. The tests are used for clinical purposes. Billing Codes Specimen Charges Stain Charges 43102 1 1 12:43 PM PAD EXTRACTION TENDER DERMATOPATHOLOGY LABORATORY Embedded Images 1 12:43 PM PAD EXTRACTION TENDER DERMATOPATHOLOGY LABORATORY Pathology/Cytolo gy TISSUE SPECIMEN FROM SKIN / Unknown 02/26/2020 3:27 AM PAD EXTRACTION TENDER 02/27/2020 2:02 PM PAD EXTRACTION TENDER Edmund Navarrete MD LAB - PATHOLOGY/CYTOLOGY ORD ERABLES Final Result DERMATOPATHOLOGY LABORATORY [facility] - Department of Dermatology [address], [address] [phone] documented in this encounter Visit Diagnoses Not on filedocumented in this encounter Care Teams Supply Planner Relationship Specialty Start Date End Date Raheem Shane MD [address] [place] [address] PCP - General 01/14/16 11/27/23 Nick Flores DO [address] [place] [address] PCP - General Family Medicine 11/28/23 documented as of this encounter
--- OUTSIDE RECORDS SUMMARY | 2024-06-04 11:27 | XMS_ITS | Encounter Summary ---
Author Organization [facility] Address [address] [facility] [place] [address] Care Team Providers Care Pre Press Operator Name Role Phone Raheem Shane MD Primary Care Provider [phone] Nick Flores DO Primary Care Provider [phone] Encounter Details Date Type Department Care Team (Late st Contact Info) Description 09/29/2023 Lab Requisition [facility] - DermPath Lab [address] [facility], [place] [address] Edmund Navarrete MD [address] [place] [address] Social History Tobacco Use Types Packs/Day Years Used Date Smoking Tobacco: Never Smokeless Tobacco: Never Alcohol Use Standard Drinks/Week Comments No 0 (1 standard drink = 0.6 oz pur e alcohol) Sex and Gender Information Value Date Recorded Sex Assigned at Not on file 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 Gender Identity Not on file Sexual Orientation Not on file documented as of this encounter Plan of Treatment Not on file documented as of this encounter Procedures Procedure Name Priority Date/Time Associated Diagnosis Comments DERMATOPATHOLOGY Routine 09/27/2023 12:0 0 AM CDT documented in this encounter Results * DERMATOPATHOLOGY (09/27/2023 12:00 AM CDT) Case Report Dermatopathology Report Case: [id number] Authorizing Provider: Edmund Navarrete MD Collected: 09/27/2023 12:00 AM Ordering Location: [facility] - Received: 09/29/2023 09:58 AM DermPath Lab Pathologist: Kathy Hartley MD Specimens: A) - Skin, right upper cutaneous lip B) - Skin, midline lumbar back C) - Skin, midline mid nose 1:24 PM T DERMATOPATHOLOGY LABORATORY Final Diagnosis Specimen A. 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 SKIN, midline mid nose: BASAL CELL CARCINOMA, NODULAR TYPE (C44.311) 1:24 PM T DERMATOPATHOLOGY LABORATORY Clinical History A-B: R/o ISK, SCC vs BCC C: R/O BCC, SCC, alondra 1:24 PM CDT DERMATOPATHOLOGY LABORATORY Gross Description Specimen A: Received is one formalin filled container labeled with the patient's name and designated right upper cutaneous lip. The specimen consists of a shave biopsy measuring 2x2x1 mm. Jar 0. Specimen B: Received is one formalin filled container labeled with the patient's name and designated midline lumbar back. The specimen consists of a shave biopsy measuring 44j76e2 mm. Jar 0. Specimen C: Received is one formalin filled container labeled with the patient's name and designated midline mid nose. The specimen consists of a shave biopsy measuring 9x8x2 mm. Jar 0. 1:24 PM CDT DERMATOPATHOLOGY LABORATORY Microscopic Description Specimen [...] cytoplasmic ratio and peripheral palisading. 1:24 PM CDT DERMATOPATHOLOGY LABORATORY Disclaimer An external and internal positive and negative controls are appropriate for the histochemical, immunohistochemical and immunofluorescence stain(s) in this case (if any), except where stated explicitly. The performance characteristics of the stain(s) cited in this report were developed and its performance characteristic determined by the Dermatopathology Laboratory at [facility], directed by Dr. Errol Hartley. These tests need not be, and therefore are not, approved by the [place] Food and Drug Administration. The tests are used for clinical purposes. Billing Codes Specimen Charges Stain Charges 38266 70963 91605 1 1 1 4 1:24 PM CDT DERMATOPATHOLOGY LABORATORY Embedded Images 4 1:24 PM CDT DERMATOPATHOLOGY LABORATORY Pathology/Cytology TISSUE SPECIMEN FROM SKIN / Unknown 09/27/2023 09/29/2023 9:58 AM CDT Miscellaneous samples (specimen) TISSUE SPECIMEN FROM SKIN / Unknown 09/27/2023 09/29/2023 9:58 AM CDT Miscellaneous samples (specimen) TISSUE SPECIMEN FROM SKIN / Unknown 09/27/2023 09/29/2023 9:58 AM CDT Edmund Navarrete MD LAB - PATHOLOGY/CYTOLOGY ORD ERABLES Final Result DERMATOPATHOLOGY LABORATORY [facility] - Department of Dermatology [address], [address] [phone] documented in this encounter Visit Diagnoses Not on filedocumented in this encounter Care Teams Pre Press Operator Relationship Specialty Start Date End Date Raheem Shane MD [address] [place] [phone] PCP - General 01/14/16 11/27/23 Nick Flores DO [address] [place] [phone] PCP - General Family Medicine 11/28/23 documented as of this encounter
--- OUTSIDE RECORDS SUMMARY | 2024-06-04 11:27 | XMS_ITS | Encounter Summary ---
Author Organization [facility] Address [address] [facility] [place] [address] Care Team Providers Care Scraper Tender Name Role Phone Raheem Shane MD Primary Care Provider [phone] Nick Flores DO Primary Care Provider [phone] Encounter Details Date Type Department Care Team (Late st Contact Info) Description 03/11/2022 Lab Requisition [facility] Care DermPath Lab [address] [facility] [place] [place] [phone] Edmund Navarrete MD [address] [place] [address] Social History Tobacco Use Types Packs/Day Years Used Date Smoking Tobacco: Never Smokeless Tobacco: Never Alcohol Use Standard Drinks/Week Comments No 0 (1 standard drink = 0.6 oz pur e alcohol) Sex and Gender Information Value Date Recorded Sex Assigned at Not on file Legal Sex Male 5:24 PM STONE GRADER Gender Identity Not on file Sexual Orientation Not on file documented as of this encounter Plan of Treatment Not on file documented as of this encounter Procedures Procedure Name Priority Date/Time Associated Diagnosis Comments DERMATOPATHOLOGY Routine 03/10/2022 12:0 0 AM STONE GRADER documented in this encounter Results * DERMATOPATHOLOGY (03/10/2022 12:00 AM STONE GRADER) Case Report Dermatopathology Report [id number]: [id number] Authorizing Provider: Edmund Navarrete MD Collected: 03/10/2022 12:00 AM Ordering Location: [facility] DermPath Lab Received: 03/11/2022 01:26 PM Pathologist: Ayla Wylie MD Specimen: Skin, right post ear 3:17 PM [facility] DERMATOPATHOLOGY LABORATORY Final Diagnosis Specimen A. SKIN, right post ear: SQUAMOUS CELL CARCINOMA IN SITU, VERRUCOUS-HYPERTROP HIC TYPE; PRESENT AT THE BASE OF THE SPECIMEN (D04.21) (see microscopic description and comment) 3:17 PM [facility] DERMATOPATHOLOGY LABORATORY Clinical History R/O SCC 3:17 PM [facility] DERMATOPATHOLOGY LABORATORY Gross Description Specimen A: Received is one formalin filled container labeled with the patient's name and designated right post ear. The specimen consists of a shave biopsy measuring 6x6x5, 7x4x1 mm. Jar 0. 3:17 PM [facility] DERMATOPATHOLOGY LABORATORY Microscopic Description Specimen A. SKIN, right post ear: The epidermis is acanthotic and shows full thickness disorderly maturation of keratinocytes, mitoses at different levels, and dyskeratotic cells. There is overlying parakeratosis and hyperkeratosis. The lesion extends to the base of the biopsy. Additional deeper sections were obtained and reviewed. COMMENT: An invasive squamous cell carcinoma cannot be ruled out. 3:17 PM [facility] DERMATOPATHOLOGY LABORATORY Disclaimer An external and internal positive and negative controls are appropriate for the histochemical, immunohistochemical and immunofluorescence stain(s) in this case (if any), except where stated explicitly. The performance characteristics of the stain(s) cited in this report were developed and its performance characteristic determined by the Dermatopathology Laboratory at [facility], directed by Dr. Errol Hartley. These tests need not be, and therefore are not, approved by the [place] Food and Drug Administration. The tests are used for clinical purposes. Billing Codes Specimen Charges Stain Charges 29383 1 3:17 PM [facility] DERMATOPATHOLOGY LABORATORY Embedded Images 3:17 PM [facility] DERMATOPATHOLOGY LABORATORY Pathology/Cytolog y TISSUE SPECIMEN FROM SKIN / Unknown 03/10/2022 03/11/2022 1:26 PM STONE GRADER us Edmund Navarrete MD LAB - PATHOLOGY/CYTOLOGY ORD ERABLES Final Result DERMATOPATHOLOGY LABORATORY [facility] - Department of Dermatology [address], [address] [phone] documented in this encounter Visit Diagnoses Not on filedocumented in this encounter Care Teams Scraper Tender Relationship Specialty Start Date End Date Raheem Shane MD [address] [place] [address] PCP - General 01/14/16 11/27/23 Nick Flores DO [address] [place] [address] PCP - General Family Medicine 11/28/23 documented as of this encounter
[2024-06-04 14:20] LABS: Free T3 4.01 pg/mL (2.34-5.61)
== END 2024-06-04 10:08 | disposition home or self-care (01) ==
LOC: ANHGOSHLAB 10:08
PROVIDERS: PCP Internal Medicine; Visit Provider Internal Medicine
DX: E03.9 Hypothyroidism, unspecified (principal); R73.03 Prediabetes
CPT/HCPCS: 36415; 84443; 84481

== ENCOUNTER 2024-12-17 10:14 | Outpatient (CLI) | payer MEDICARE, SELFPAY ==
--- OUTSIDE RECORDS SUMMARY | 2024-12-17 11:12 | XMS_ITS | Encounter Summary ---
Author Organization [facility] Address [address] [facility] [place] [address] Care Team Providers Care Supervisor Brooder Farm Name Role Phone Raheem Shane MD Primary Care Provider [phone] Nick Flores DO Primary Care Provider [phone] Encounter Details Date Type Department Care Team (Late st Contact Info) Description 08/23/2023 Lab Requisition [facility] - DermPath Lab [address] [facility], [place] [address] Edmund Navarrete MD [address] [place] [address] Social History Tobacco Use Types Packs/Day Years Used Date Smoking Tobacco: Never Smokeless Tobacco: Never Alcohol Use Standard Drinks/Week Comments No 0 (1 standard drink = 0.6 oz pur e alcohol) Sex and Gender Information Value Date Recorded Sex Assigned at Not on file Legal Sex Male 5:24 PM 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 NURSE Gender Identity Not on file Sexual Orientation Not on file documented as of this encounter Plan of Treatment Not on file documented as of this encounter Procedures Procedure Name Priority Date/Time Associated Diagnosis Comments DERMATOPATHOLOGY Routine 08/22/2023 12:0 0 AM CDT documented in this encounter Results * DERMATOPATHOLOGY (08/22/2023 12:00 AM CDT) Case Report Dermatopathology Report Case: [id number] Authorizing Provider: Edmund Navarrete MD Collected: 08/22/2023 12:00 AM Ordering Location: [facility] - Received: 08/23/2023 01:09 PM DermPath Lab Pathologist: Susana Brooks MD Specimen: Skin, dorsal right thumb @ MCP joint 5:40 PM CDT DERMATOPATHOLOGY LABORATORY Final Diagnosis Specimen A. SKIN, dorsal right thumb @ MCP joint: SQUAMOUS CELL CARCINOMA, WELL DIFFERENTIATED (C44.622) 5:40 PM CDT DERMATOPATHOLOGY LABORATORY at 1740 CDT Clinical History R/O SCC, KA 5:40 PM CDT DERMATOPATHOLOGY LABORATORY Gross Description Specimen A: Received is one formalin filled container labeled with the patient's name and designated dorsal right thumb @ MCP joint. The specimen consists of a shave biopsy measuring 24a36i5 mm. Jar 0. 5:40 PM CDT DERMATOPATHOLOGY [...] determined by the Dermatopathology Laboratory at [facility], directed by Dr. Errol Hartley. These tests need not be, and therefore are not, approved by the [place] Food and Drug Administration. The tests are used for clinical purposes. Billing Codes Specimen Charges Stain Charges 16709 1 5:40 PM CDT DERMATOPATHOLOGY LABORATORY Embedded Images 5:40 PM CDT DERMATOPATHOLOGY LABORATORY Pathology/Cytolog y TISSUE SPECIMEN FROM SKIN / Unknown 08/22/2023 08/23/2023 1:09 PM CDT Edmund Navarrete MD LAB - PATHOLOGY/CYTOLOGY ORD ERABLES Final Result DERMATOPATHOLOGY LABORATORY [facility] - Department of Dermatology [facility] Medicine [address] [place] [address], [address] [phone] documented in this encounter Visit Diagnoses Not on filedocumented in this encounter Care Teams Supervisor Brooder Farm Relationship Specialty Start Date End Date Raheem Shane MD [address] [place] [phone] PCP - General 01/14/16 11/27/23 Nick Flores DO [address] [place] [phone] PCP - General Family Medicine 11/28/23 documented as of this encounter
--- OUTSIDE RECORDS SUMMARY | 2024-12-17 11:12 | XMS_ITS | Clinical Summary ---
Author Organization [facility] [employer] Address [address] [facility] [place] [address] Care Team Providers Care Women'S Apparel Salesperson Name Role Phone Nick Flores DO Primary Care Provider [phone] Source Comments [facility] [employer],non-owned Affiliates and Associated Physician Practices is amultiple site organization consisting of ambulatory clinics and hospital sitesin [place], [place], [place] and [place]. This disclosure is being madepursuant to the Care Everywhere program and may not contain all information available regarding this patient. Last updated 17.[facility] [employer] Allergies No known active allergies Medications * [...] on file Legal Sex Male 5:24 PM BUSINESS SOLUTIONS ARCHITECT Gender Identity Not on file Sexual Orientation Not on file Last Filed Vital Signs Vital Sign Reading Time Taken Comments Blood Pressure 134/80 11/21/2020 12:02 PM CDT Pulse 59 11/21/2020 12:02 PM CDT Temperature - - Respiratory Rate - - Oxygen Saturation 98% 04/06/2016 10:32 AM BUSINESS SOLUTIONS ARCHITECT Inhaled Oxygen Concentration - - Weight 82.6 kg (182 lb) 11/21/2020 9:08 AM CDT Height 179.1 cm (5' 10.5) 11/21/2020 9:08 AM CD T Body Mass Index 25.75 11/21/2020 9:08 AM CDT Plan of Treatment Health Maintenance Due Date Last Done Comments DTAP/TDAP/TD VACCINES (1 - Tdap) 1954 PNEUMOCOCCAL VACCINE 50+ (1 of 1 - PCV) 1985 ZOSTER VACCINE (1 of 2) 1985 Respiratory Syncytial Virus (RSV) Vaccine Pt: or over 60 yrs (1 - 1-dose 75+ series) 2010 DEPRESSION SCREENING 02/15/2024 MEDICARE AWV CALENDAR YEAR 2024 COVID-19 VACCINE (1 - 2023-2 5 season) 2024 INFLUENZA VACCINE (#1) 2024 HEPATITIS B VACCINE Aged Out No [...] Insurance AETNA AETNA MEDICARE ADV Care Teams Women'S Apparel Salesperson Relationship Specialty Start Date End Date Nick Flores DO [facility] [place] [address] PCP - General Family Medicine 11/28/23
--- OUTSIDE RECORDS SUMMARY | 2024-12-17 11:12 | XMS_ITS | Clinical Summary ---
Author Organization [facility] Address [address] [place] [address] Phone Care Team Providers Care Water Inspector Name Role Phone Raheem Shane MD [...] 1-dose 75+ series) 2010 INFLUENZA VACCINE (#1) 2024 Insurance [facility] [id number] Care Teams Water Inspector Relationship Specialty Start Date End Date Raheem Shane MD [address] [place] [phone] PCP - General 09/29/17
--- OUTSIDE RECORDS SUMMARY | 2024-12-17 11:12 | XMS_ITS | Encounter Summary ---
Author Organization [facility] Address [address] [place] [address] Care Team Providers Care Spinning And Winding Supervisor Name Role Phone Raheem Shane MD Primary Care Provider [phone] Nick Flores DO Primary Care Provider [phone] Lamonte Berman DO Primary Care Provider Encounter Details Date Type Department Care Team (Late st Contact Info) Description 09/09/2017 Orders Only [facility] [facility] [address] [place] [address] Scanning, Provider Social History Tobacco Use Types Packs/Day Years Used Date Smoking Tobacco: Never Assessed Sex and Gender Information Value Date Recorded Sex Assigned at Not on file Legal Sex Male 3:46 AM SUPPLY CLERK Gender Identity Not on file Sexual Orientation Not on file documented as of this encounter Plan of Treatment Upcoming Encounters Date Type Department Care Team (Late st Contact Info) Description 01/29/2025 Hospital Encounter [facility] Operating Room [address] [place] [address] Shyanne Chow MD PhD [address] [facility] [address] [place] [address] Scheduled Procedures Name Priority Associated Diagnoses Date/Ti me 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 Endothelial corneal dystrophy of left eye Nuclear sclerotic cataract of left eye documented as of this encounter Procedures Procedure Name Priority Date/Time Associated Diagnosis Comments SCAN - LABS 09/09/2017 documented in this encounter Results * SCAN - LABS (09/09/2017) us Provider Scanning Final Result documented in this encounter Visit Diagnoses Not on filedocumented in this encounter Additional Health Concerns Infection Onset Date Last Indicated Resolved Time MRSA 12/26/2017 12/26/2017 10/01/2020 5:00 AM CDT documented as of this encounter Care Teams Spinning And Winding Supervisor Relationship Specialty Start Date End Date Raheem Shane MD [address] [place] [address] PCP - General 09/29/17 11/22/21 Nick Flores DO [address] [place] [address] PCP - General Family Medicine 11/23/21 08/15/24 Lamonte Berman DO [address] [place] [address] PCP - General Internal Medicine 08/16/24 documented as of this encounter
--- OUTSIDE RECORDS SUMMARY | 2024-12-17 11:12 | XMS_ITS | Encounter Summary ---
Author Organization [facility] Address [address] [facility] [place] [address] Care Team Providers Care Mva Still Operator Name Role Phone Raheem Shane MD Primary Care Provider [phone] Nick Flores DO Primary Care Provider [phone] Encounter Details Date Type Department Care Team (Late st Contact Info) Description 09/29/2023 Lab Requisition [facility] - Derm[facility] Lab [address] [facility] [place] [address] Edmund Navarrete MD [address] [place] [address] Social History Tobacco Use Types Packs/Day Years Used Date Smoking Tobacco: Never Smokeless Tobacco: Never Alcohol Use Standard Drinks/Week Comments No 0 (1 standard drink = 0.6 oz pur e alcohol) Sex and Gender Information Value Date Recorded Sex Assigned at Not on file Legal Sex Male 5:24 PM 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 OFFICE 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 Gender Identity Not on file Sexual Orientation Not on file documented as of this encounter Plan of Treatment Not on file documented as of this encounter Procedures Procedure Name Priority Date/Time Associated Diagnosis Comments DERMATOPATHOLOGY Routine 09/27/2023 12:0 0 AM CDT documented in this encounter Results * DERMATOPATHOLOGY (09/27/2023 12:00 AM CDT) Case Report Dermatopathology Report Case: [id number] Authorizing Provider: Edmund Navarrete MD Collected: 09/27/2023 12:00 AM Ordering Location: [facility] - Received: 09/29/2023 09:58 AM DermPath Lab Pathologist: Kathy Hartley MD Specimens: A) - Skin, right upper cutaneous lip B) - Skin, midline lumbar back C) - Skin, midline mid nose 1:24 PM CDT DERMATOPATHOLOGY LABORATORY Final Diagnosis Specimen A. 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 SKIN, midline mid nose: BASAL CELL CARCINOMA, NODULAR TYPE (C44.311) 1:24 PM CDT DERMATOPATHOLOGY LABORATORY at 1324 CDT Clinical History A-B: R/o ISK, SCC vs [...] specimen consists of a shave biopsy measuring 99d17q9 mm. Jar 0. Specimen C: Received is [...] characteristic determined by the Dermatopathology Laboratory at [facility], directed by Dr. Errol Hartley. These tests need not be, and therefore are not, approved by the [place] Food and Drug Administration. The tests are used for clinical purposes. Billing Codes Specimen Charges Stain Charges 94295 56894 95643 1 1 1 4 1:24 PM CDT [...] PATHOLOGY/CYTOLOGY ORD ERABLES Final Result DERMATOPATHOLOGY LABORATORY [facility] - Department of Dermatology [address] [phone] documented in this encounter Visit Diagnoses Not on filedocumented in this encounter Care Teams Mva Still Operator Relationship Specialty Start Date End Date Raheem Shane MD [address] [place] [phone] PCP - General 01/14/16 11/27/23 Nick Flores DO [address] [place] [phone] PCP - General Family Medicine 11/28/23 documented as of this encounter
--- OUTSIDE RECORDS SUMMARY | 2024-12-17 11:12 | XMS_ITS | Encounter Summary ---
Author Organization [facility] Address [address] [place] [address] Care Team Providers Care Medical Records Specialist Name Role Phone Raheem Shane MD Primary Care Provider [phone] Nick Flores DO Primary Care Provider [phone] Encounter Details Date Type Department Care Team (Late st Contact Info) Description 03/11/2022 Lab Requisition [facility] Care DermPath Lab [address] [facility] [place] [id number] Edmund Navarrete MD [address] [place] [address] Social History Tobacco Use Types Packs/Day Years Used Date Smoking Tobacco: Never Smokeless Tobacco: Never Alcohol Use Standard Drinks/Week Comments No 0 (1 standard drink = 0.6 oz pur e alcohol) Sex and Gender Information Value Date Recorded Sex Assigned at Not on file Legal Sex Male 5:24 PM HOSIERY REPAIRER Gender Identity Not on file Sexual Orientation Not on file documented as of this encounter Plan of Treatment Not on file documented as of this encounter Procedures Procedure Name Priority Date/Time Associated Diagnosis Comments DERMATOPATHOLOGY Routine 03/10/2022 12:0 0 AM HOSIERY REPAIRER documented in this encounter Results * DERMATOPATHOLOGY (03/10/2022 12:00 AM HOSIERY REPAIRER) Case Report Dermatopathology Report Case: [id number] Authorizing Provider: Edmund Navarrete MD Collected: 03/10/2022 12:00 AM Ordering Location: [facility] DermPath Lab Received: 03/11/2022 01:26 PM Pathologist: Ayla Wylie MD Specimen: Skin, right post ear 3:17 PM [facility] DERMATOPATHOLOGY LABORATORY Final Diagnosis Specimen A. SKIN, right post ear: SQUAMOUS CELL CARCINOMA IN SITU, VERRUCOUS-HYPERTROP HIC TYPE; PRESENT AT THE BASE OF THE SPECIMEN (D04.21) (see microscopic description and comment) 3:17 PM [facility] DERMATOPATHOLOGY LABORATORY at [address] [facility] Clinical History R/O SCC 3:17 PM [facility] DERMATOPATHOLOGY LABORATORY Gross Description Specimen A: Received is one formalin filled container labeled with the patient's name and designated right post ear. The specimen consists of a shave biopsy measuring 6x6x5, 7x4x1 mm. Jar 0. 3:17 PM [facility] DERMATOPATHOLOGY LABORATORY Microscopic Description Specimen A. SKIN, right post ear: The epidermis is acanthotic and shows full thickness disorderly maturation of keratinocytes, mitoses at different levels, and dyskeratotic cells. There is overlying parakeratosis and hyperkeratosis. The lesion extends to the base of the biopsy. Additional deeper sections were obtained and reviewed. COMMENT: An invasive squamous cell carcinoma cannot be ruled out. 3:17 PM [facility] DERMATOPATHOLOGY LABORATORY Disclaimer An external and internal positive and negative controls are appropriate for the histochemical, immunohistochemical and immunofluorescence stain(s) in this case (if any), except where stated explicitly. The performance characteristics of the stain(s) cited in this report were developed and its performance characteristic determined by the Dermatopathology Laboratory at [facility], directed by Dr. Errol Hartley. These tests need not be, and therefore are not, approved by the [place] Food and Drug Administration. The tests are used for clinical purposes. Billing Codes Specimen Charges Stain Charges 13095 1 3:17 PM [facility] DERMATOPATHOLOGY LABORATORY Embedded Images 3:17 PM [facility] DERMATOPATHOLOGY LABORATORY Pathology/Cytolog y TISSUE SPECIMEN FROM SKIN / Unknown 03/10/2022 03/11/2022 1:26 PM HOSIERY REPAIRER us Edmund Navarrete MD LAB - PATHOLOGY/CYTOLOGY ORD ERABLES Final Result DERMATOPATHOLOGY LABORATORY [facility] - Department of Dermatology [address], [address] [phone] documented in this encounter Visit Diagnoses Not on filedocumented in this encounter Care Teams Medical Records Specialist Relationship Specialty Start Date End Date Raheem Shane MD [address] [place] [address] PCP - General 01/14/16 11/27/23 Nick Flores DO [address] [place] [id number] PCP - General Family Medicine 11/28/23 documented as of this encounter
--- OUTSIDE RECORDS SUMMARY | 2024-12-17 11:12 | XMS_ITS | Encounter Summary ---
Author Organization [facility] Healthcare Address [address] [place] [address] Care Team Providers Care Jewelry Setter Name Role Phone Raheem Shane MD Primary Care Provider [phone] Nick Flores DO Primary Care Provider [phone] Lamonte Berman DO Primary Care Provider Encounter Details Date Type Department Care Team (Late st Contact Info) Description 08/29/2017 Orders Only [facility] Information Management [address] [place] [address] Scanning, Provider Social History Tobacco Use Types Packs/Day Years Used Date Smoking Tobacco: Never Assessed Sex and Gender Information Value Date Recorded Sex Assigned at Not on file Legal Sex Male 3:46 AM VENDING MACHINE 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 Endothelial corneal dystrophy of left eye Nuclear sclerotic cataract of left eye documented as of this encounter Procedures Procedure Name Priority Date/Time Associated Diagnosis Comments SCAN - RADIOLOGY/IMAGING 08/29/2017 documented in this encounter Results * SCAN - RADIOLOGY/IMAGING (08/29/2017) Anatomical Region Laterality Modality Other us Provider Scanning Final Result documented in this encounter Visit Diagnoses Not on filedocumented in this encounter Additional Health Concerns Infection Onset Date Last Indicated Resolved Time MRSA 12/26/2017 12/26/2017 10/01/2020 5:00 AM CDT documented as of this encounter Care Teams Jewelry Setter Relationship Specialty Start Date End Date Raheem Shane MD [address] [place] [address] PCP - General 09/29/17 11/22/21 Nick Flores DO [address] [place] [address] PCP - General Family Medicine 11/23/21 08/15/24 Lamonte Berman DO [address] [place] [address] PCP - General Internal Medicine 08/16/24 documented as of this encounter
--- OUTSIDE RECORDS SUMMARY | 2024-12-17 11:12 | XMS_ITS | Encounter Summary ---
Author Organization [facility] Healthcare Address [address] [place] [address] Care Team Providers Care Timber Poisoner Name Role Phone Raheem Shane MD Primary Care Provider [phone] Nick Flores DO Primary Care Provider [phone] Lamonte Berman DO Primary Care Provider Encounter Details Date Type Department Care Team (Late st Contact Info) Description 10/03/2017 Orders Only [facility] Health Information Management [address] [place] [address] Scanning, Provider Social History Tobacco Use Types Packs/Day Years Used Date Smoking Tobacco: Never Assessed Sex and Gender Information Value Date Recorded Sex Assigned at Not on file Legal Sex Male 3:46 AM CONTRACT TECHNICIAN Gender Identity Not on file Sexual Orientation Not on file documented as of this encounter Plan of Treatment Upcoming Encounters Date Type Department Care Team (Late st Contact Info) Description 01/29/2025 Hospital Encounter [facility] Operating Room [address] [place] [address] Shyanne Chow MD PhD [address] [facility] [address] [place] [address] Scheduled Procedures Name Priority Associated Diagnoses Date/Ti me 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 Endothelial corneal dystrophy of left eye Nuclear sclerotic cataract of left eye documented as of this encounter Procedures Procedure Name Priority Date/Time Associated Diagnosis Comments SCAN - LABS 10/03/2017 documented in this encounter Results * SCAN - LABS (10/03/2017) us Provider Scanning Final Result documented in this encounter Visit Diagnoses Not on filedocumented in this encounter Additional Health Concerns Infection Onset Date Last Indicated Resolved Time MRSA 12/26/2017 12/26/2017 10/01/2020 5:00 AM CDT documented as of this encounter Care Teams Timber Poisoner Relationship Specialty Start Date End Date Raheem Shane MD [address] [place] [address] PCP - General 09/29/17 11/22/21 Nick Flores DO [address] [place] [address] PCP - General Family Medicine 11/23/21 08/15/24 Lamonte Berman DO [address] [place] [address] PCP - General Internal Medicine 08/16/24 documented as of this encounter
--- OUTSIDE RECORDS SUMMARY | 2024-12-17 11:13 | XMS_ITS | Clinical Summary ---
Author Organization [facility] [address] [facility] [address] Address [address] [place] [address] Care Team Providers Care Director Women Name Role Phone Paigestephen Lamonte Bob Primary Care Provider Allergies No known active allergies Medications levothyroxine (SYNTHROID) 75 mcg tabletIndicati ons:hypothyroi dism Take 1 tablet (75 mcg total) by mouth patrol man before breakfast 2 Active HYDROcodone-ac etaminophen (NORCO) 5-325 mg per tabletIndicati ons:Pain,arthr itis Take 1 tablet by mouth as needed for pain 5 Active Xarelto 20 mg tablet TAKE 1 TABLET(20 MG) BY MOUTH DAILY 90 tablet 1 5 Active Additional Information Patient taking differently:20 mg oralNightly, Indications: atrial fibrillation, Informant: Self, Reported on 10/31/2024 metoprolol XL (TOPROL-XL) 50 mg extended release tablet TAKE 1 TABLET(50 MG) BY MOUTH DAILY 90 tablet 1 5 Active Additional Information Patient taking differently:50 mg oralEvery morning, Indications: Atrial Arrhythmia, Informant: Self, Reported on 10/31/2024 UNABLE TO FINDIndication s:supplement for arthritis Take by mouth every morning Med Name: Hyaluronic Acid Powder Supplement, powder- mixes it in cereal Active UNABLE TO FINDIndication s:supplement Take by mouth every morning Med Name: Astaxanthin, 1 tablet Active prednisoLONE acetate (PRED FORTE) 1 % ophthalmic suspension Administer 1 drop into the right eye 3 (three) times a day 10 mL 3 5 Active prednisoLONE acetate (PRED FORTE) 1 % ophthalmic suspension Administer 1 drop into the right eye 4 (four) times a day For use after surgery with Dr. Chow 10 mL 5 11/30/19 25 Discontin ued(Reord er) Active Problems Problem Noted Date Diagnosed Date Endothelial corneal dystrophy of left eye 2024 Nuclear sclerotic cataract of left eye 5 Endothelial corneal dystrophy of right eye 09/26 Nonrheumatic mitral valve regurgitation 10/13/19 23 Other [...] 09/30/2014 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 Encounters Date Type Department Care Team Description 12/14/2024 Telephone [facility] Medicine Ophthalmology [address] [facility] [address] [place] [address] Shyanne Chow MD PhD 12/13/2024 Telephone [facility] Medicine Ophthalmology [address] [facility] [address] [place] [phone] Shyanne Chow MD PhD 11/20/2024 10:15 AM CDT Office Visit [facility] Medicine Ophthalmology [address] [facility] 2nd Floor [address] [place] [address] Shyanne Chow MD PhD Endothelial corneal dystrophy of right eye (Primary Dx) 11/07/2024 9:30 AM CDT [facility] [address] [place] [phone] Shyanne Chow MD PhD Endothelial corneal dystrophy of right eye (Primary Dx) 11/05/2024 Telephone [facility] Medicine Ophthalmology [address] [place] [address] Shyanne Chow MD PhD Post op symptoms 10/31/2024 9:30 AM CDT Office Visit [facility] Medicine Ophthalmology [address] [place] [phone] Shyanne Chow MD PhD Endothelial corneal dystrophy, bilateral (Primary Dx) 10/30/2024 10:05 AM CDT Anesthesia Event [facility] [address] [place] [address] Ion Quintana MD Helsten, Daniel Luke, MD 10/30/2024 9:55 AM CDT - 10/30/2024 11:25 AM CDT Surgery [facility] Operating Room [address] [place] [address] Shyanne Chow MD PhD 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 10/30/2024 8:15 AM CDT - 10/30/2024 12:20 PM CDT Hospital Encounter [facility] [address] [place] [address] Shyanne Chow MD PhD Endothelial corneal dystrophy of right eye Discharge Disposition: Discharge to home or self care 09/26/2024 Telephone [facility] Medicine Ophthalmology [address] [place] [phone] Shyanne Chow MD PhD SX check list 09/25/2024 Telephone [facility] Medicine Ophthalmology [address] [place] [phone] Shyanne Chow MD PhD 09/24/2024 10:30 AM CDT Office Visit [facility] Medicine Ophthalmology [address] [facility] 6th [place] [phone] Shyanne Chow MD PhD Endothelial corneal dystrophy, bilateral (Primary Dx) from Last 3 Months Immunizations Immunization Administration Dates Next Due Influenza, Quad, Adjuvantate d, Intramuscular 11/08/2022 Influenza, Quadrivalent, Hig h Dose, Preservative Free, Intrr 11/23/2020,10/19/2019 Influenza, Trivalent, Adjuva nted, Intramuscular 11/29/2017 Influenza, Trivalent, High D ose, Split, Preservative Free, Intramuscular 11/06/2023,12/29/2018,01/04/2017,12/11,12/29/2014,02/01/2014 Influenza, Trivalent, IM (MDV) 12/26/2011 Pneumococcal Conjugate PCV 13 12/29/2014 Pneumococcal Conjugate Pcv20 11/06/2023 RSV Vaccine, Pref, Recombina nt, Subunit, Adjuvanted, PF, IM (Arexvy) 11/06/2023 Tdap 06/04/2022,12/26/2011 ZOSTER Recombinant 09/11/2019,03/30/2019 Surgical History Surgery Date Site/Laterality Comments APPENDECTOMY 02/14/1959 - 02/14/1960 VASECTOMY 02/14/1969 - 02/13/1970 FOOT SURGERY Right several, ulcer that didn't heal, last one 2019 COLONOSCOPY Last one was over 5 years ago 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 Medical History Medical History Date Comments Neuropathy Neuropathy; Comm ents: KSA 09/30/2014 - Hypercholesterolemia High choles terol; Comments: KSA 09/30/2014 - Hypertension Hypertension Atrial fibrillation (HCC) Family History Medical History Relation Name Comments Heart disease Father Cancer Mother Cancer Sister 1 Anesthesia problems Neg Hx Malig Hypertension Neg Hx Malig Hyperthermia Neg Hx Pseudochol deficiency Neg Hx Relation Name Status Comments Father (Age 52) Mother (Age 62) Sister 1 (Age 65) Sister 2 Alive Sister 3 Alive Social History Tobacco Use Types Packs/Day Years Used Date Smoking Tobacco: Never Passive Smoke Exposure: Past Smokeless Tobacco: Never Alcohol Use Standard Drinks/Week Comments Never 0 (1 standard drink = 0.6 oz pur e alcohol) AUDIT-C Answer Date Recorded Q1: How often do you have a drink containing alcohol? Never 10/30/2024 Q2: How many drinks containi ng alcohol do you have on a typical day when you are drinking? Patient does not drink Q3: How often do you have si x or more drinks on one occasion? Never 10/30/2024 Personal Safety Answer Date Recorded Have you ever been in or are you currently in a harmful physical or emotional relationship or is someone making you feel afraid or unsafe? 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 Gender Identity Not on file Sexual Orientation Not on file Last Filed Vital Signs Vital Sign Reading Time Taken Comments Blood Pressure 145/82 10/30/2024 12:05 PM CDT Pulse 62 10/30/2024 12:05 PM CDT Temperature 36.3 C (97.3 F) 10/30/2024 12:05 PM CDT Respiratory Rate 19 10/30/2024 12:05 PM CDT Oxygen Saturation 93% 10/30/2024 12:05 PM CDT Inhaled Oxygen Concentration - - Weight 83.1 kg (183 lb 1.6 oz) 10/30/2024 8:31 A M CDT Height 179.1 cm (5' 10.5) 10/30/2024 8:31 AM CD T Body Mass Index 25.9 10/30/2024 8:31 AM CDT Plan of Treatment Upcoming Encounters Date Type Department Care Team (Late st Contact Info) Description 01/29/2025 Hospital Encounter [facility] Operating Room [address] [facility] [place] [phone] Shyanne Chow MD PhD [address] [place] [address] Scheduled Procedures Name Priority Associated Diagnoses Date/Ti me 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 Endothelial corneal dystrophy of left eye Nuclear sclerotic cataract of left eye Health Maintenance Due Date Last Done Comments Depression Screening 1935 Hepatitis B Screening 1953 Well Visit 65+ 02/06/2000 Covid-19 Vaccine (2024-2 6 season) 2024 11/06/2023, 11/08/2022, 12/04/2021, Additional history exists Influenza Vaccine (#1) 2024 , 11/08/2022, 11/23/2020, Additional history exists Fall Risk Assessment 10/30/2025 10/30/2024, 11/24/19 DTaP/Tdap/Td Vaccine (3 - Td or Tdap) 06/04/2032 06/04/2022, 12/26/2011 Zoster Vaccine Completed 09/11/2019, 03/30/2019 Pneumococcal vaccine 65+ Completed 11/06/2023, 12/15 Medical Devices Implanted Type Area Belt Loop Cutter Device Identifier Shelf Expiration Date Model / Serial / Lot [facility] Transplant Srvcs Graft Left Cornea [id number] - [id number] - [id number] Implanted:Qty: 1 on 10/30/2024 by Shyanne Chow MD PhD at [facility] Transplant Srvcs 11/08/2024 [id number] / [id number] / [id number] Procedures Procedure Name Priority Date/Time Associated Diagnosis Comments OCT, ANTERIOR SEGMENT 52802 - OD - RIGHT EYE Routine 11/07/2024 10:50 AM CDT Endothelial corneal dystrophy of right eye SURGICAL PATHOLOGY Routine 10/30/2024 10 :29 AM CDT Endothelial corneal dystrophy of right eye TRANSPLANT CORNEA PENETRATING. 10/30/2024 10:10 AM CDT Endothelial corneal dystrophy of right eye Special Needs anterior vitrectomy handset available from Last 3 Months Results * OCT, ANTERIOR SEGMENT 95539 - OD - RIGHT EYE (11/07/2024 10:50 AM CDT) Anatomical Region Laterality Modality Head Optical Coherenc e Tomography Narrative 11/08/2024 12:48 AM CDT DMEK detachment temporal half with associated stromal edema and bullae us Shyanne Chow MD PhD OPHTH TOMOGRAPHY Elisabeth l Result * Surgical pathology (10/30/2024 10:29 AM CDT) Tissue (Descemet's Membrane) 10/30/2024 10:29 AM CDT Narrative PATHOLOGY TEMP LLB FOR ASP - 11/06/2024 11:49 AM CDT EPIC results best viewed via link to PDF [facility] Jovanna Azul [facility] [place] [address] Note to Patients: This report may contain a detailed description of human tissue sent by a health care provider to the laboratory for pathologic evaluation. The content of this report is essential for diagnosis and may provide important critical findings. This information may be unfamiliar to patients to review without a medical professional present. It is advised that the patient review this report in the presence of a health care provider who can answer questions and explain the details. SURGICAL PATHOLOGY REPORT FINAL Patient Name: UZAIR STEVENS Gender: M : 1935 (Age: 89) [address]: [address] [place] [phone] Hospital #: [id number] Taken:10/30/2024 Received:10/30/2024 Reported: 11/06/2024 Patient Type: [facility] EP SAME Client [facility] Service: Ophthalmology Location: Physician(s): Shyanne Chow MD, PHD MD Shorty Vásquez MD David Yablonsky, Diagnosis: Cornea, right eye, endokeratoplasty (DMEK): - Endothelial cell loss with guttae of Descemet's membrane, consistent with diagnosis of Fuchs endothelial dystrophy [facility]/11/06/2024 11:49 By this signature, I attest that the above diagnosis is based upon my personal examination of the slides(and/or other material indicated in the diagnosis). Trenton Rushing M.D. Report Electronically Reviewed and Signed Out By Trenton Rushing M.D. 11/06/2024 11:49:02 Microscopic Description and Comment: Sections consist of Descemet's membrane, exhibiting numerous guttae, with endothelial cell loss. PAS stain highlights Descemet's membrane. History: The patient is an 89-year-old man with endothelial corneal dystrophy of right eye. Operative Procedure: Right eye Descemet's membrane endothelial keratoplasty (DMEK)/cornea transplant. Specimen(s) Received: A: Descemet's membrane Gross Description: Received in formalin labeled with the patient's identifiers and Descemet's membrane is a 0.9 x 0.7 x <0.1 cm semitranslucent tissue fragment. It is stained with hematoxylin, trisected and embedded on edge in histogel. Entirely submitted in A1. Jar 0. dxb/10/31/2024 16:00 PA(s): JOSE Ventura, JORGE L([facility])CM By this signature, I attest that the above diagnosis is based upon my personal examination of the slides(and/or other material). Addenda/Procedures Microscopic slide review and interpretation for this case was performed at [facility], Department of Surgical Pathology, [address] [facility], [place] [id number], [place] [address] CLIA # [id number] The performance characteristics of some immunohistochemical stains, fluorescence in-situ hybridization tests and immunophenotyping by flow cytometry cited in this report (if any) were determined by the Surgical Pathology and Flow Cytometry Departments at [facility] as part of an ongoing senior quality engineer program and in compliance with federally mandated regulations drawn from the Clinical Laboratory Improvement Act of 1988 (CLIA '88). Some of these tests rely on the use of analyte specific reagents and are subject to specific labeling requirements by the US Food and Drug Administration. Such diagnostic tests may only be performed in a facility that is certified by the Department of Health and Human Services as a high complexity laboratory under CLIA '88. The FDA has determined that such clearance or approval is not necessary. This test is used for clinical purposes. It should not be regarded as investigational or for research. Nevertheless, federal rules concerning the medical use of analyte specific reagents require that the following disclaimer be attached to the report: This test was developed and its performance characteristics determined by the Surgical Pathology and Flow Cytometry Departments of [facility]. It has not been cleared or approved by the U. S. Food and Drug Administration. IMAGES AND SCANNED DOCUMENTS, IF INCLUDED, ONLY VIEWABLE IN PDF VERSION OF REPORT Shyanne Chow MD PhD LAB PATHOLOGY ORDERAB LES Final Result PATHOLOGY TEMP LLB FOR ASP from Last 3 Months Insurance T MEDICARE AET MEDICARE AETNA MEDICARE Advance Directives For more information, please contact: [phone] Documents on File Type Date Recorded Patient Chief Compressor Station Engineer Expl anation Power of Racing Mechanic 10/30/2024 8:18 AM Care Teams Director Women Relationship Specialty Start Date End Date Lamonte Berman DO PCP - General Internal Medicine 08/16/24
--- OUTSIDE RECORDS SUMMARY | 2024-12-17 11:13 | XMS_ITS | Encounter Summary ---
Author Organization [facility] Address [address] [place] [address] Care Team Providers Care Die Designer Apprentice Name Role Phone Raheem Shane MD Primary Care Provider [phone] Nick Flores DO Primary Care Provider [phone] Encounter Details Date Type Department Care Team (Late st Contact Info) Description 2020 Lab Requisition [facility] Care DermPath Lab [address] [facility], [place] [phone] Edmund Navarrete MD [address] [place] [address] Social History Tobacco Use Types Packs/Day Years Used Date Smoking Tobacco: Never Smokeless Tobacco: Never Alcohol Use Standard Drinks/Week Comments No 0 (1 standard drink = 0.6 oz pur e alcohol) Sex and Gender Information Value Date Recorded Sex Assigned at Not on file Legal Sex Male 5:24 PM OCCUPATIONAL HEALTH NURSING DIRECTOR Gender Identity Not on file Sexual Orientation Not on file documented as of this encounter Plan of Treatment Not on file documented as of this encounter Procedures Procedure Name Priority Date/Time Associated Diagnosis Comments DERMATOPATHOLOGY Routine 02/04/2020 3:33 AM OCCUPATIONAL HEALTH NURSING DIRECTOR documented in this encounter Results * DERMATOPATHOLOGY (02/04/2020 3:33 AM OCCUPATIONAL HEALTH NURSING DIRECTOR) Case Report Dermatopathology Report Case: [id number] Authorizing Provider: Edmund Navarrete MD Collected: 02/04/2020 03:33 AM Ordering Location: [facility] DermPath Lab Received: 2020 12:07 PM Pathologist: Isabelle Tyler MD Specimens: A) - Skin, right frontal scalp B) - Skin, left helix rim 0 1:24 PM [facility] DERMATOPATHOLOGY LABORATORY Final Diagnosis Specimen A. 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 SKIN, left helix rim: HYPERPLASTIC (HYPERTROPHIC) ACTINIC KERATOSIS (L57.0) 0 1:24 PM OCCUPATIONAL HEALTH NURSING DIRECTOR DERMATOPATHOLOGY LABORATORY at 1324 OCCUPATIONAL HEALTH NURSING DIRECTOR Clinical History A-B: R/O SCC, BCC. 0 1:24 PM [facility] DERMATOPATHOLOGY LABORATORY Gross Description Specimen A: Received is one formalin filled container labeled with the patient's name and designated right frontal scalp. The specimen consists of a shave biopsy measuring [id number]. Jar 0. Specimen B: Received is one formalin filled container labeled with the patient's name and designated left helix rim. The specimen consists of a shave biopsy measuring [id number]. Jar 0. 0 1:24 PM OCCUPATIONAL HEALTH NURSING DIRECTOR DERMATOPATHOLOGY LABORATORY Microscopic Description Specimen A. SKIN, [...] half of the epidermis. 0 1:24 PM [facility] DERMATOPATHOLOGY LABORATORY Disclaimer An external and internal positive and negative controls are appropriate for the histochemical, immunohistochemical and immunofluorescence stain(s) in this case (if any), except where stated explicitly. The performance characteristics of the stain(s) cited in this report were developed and its performance characteristic determined by the Dermatopathology Laboratory at [facility], directed by Dr. Errol Hartley. These tests need not be, and therefore are not, approved by the [place] Food and Drug Administration. The tests are used for clinical purposes. Billing Codes Specimen Charges Stain Charges 29170 91487 1 1 0 1:24 PM OCCUPATIONAL HEALTH NURSING DIRECTOR DERMATOPATHOLOGY LABORATORY Embedded Images 0 1:24 PM OCCUPATIONAL HEALTH NURSING DIRECTOR DERMATOPATHOLOGY LABORATORY Pathology/Cytology TISSUE SPECIMEN FROM SKIN / Unknown 02/04/2020 3:33 AM OCCUPATIONAL HEALTH NURSING DIRECTOR 2020 12:07 PM OCCUPATIONAL HEALTH NURSING DIRECTOR Miscellaneous samples (specimen) TISSUE SPECIMEN FROM SKIN / Unknown 02/04/2020 3:33 AM OCCUPATIONAL HEALTH NURSING DIRECTOR 2020 12:07 PM OCCUPATIONAL HEALTH NURSING DIRECTOR Edmund Navarrete MD LAB - PATHOLOGY/CYTOLOGY ORD ERABLES Final Result DERMATOPATHOLOGY LABORATORY [facility] - Department of Dermatology [address], [address] [phone] documented in this encounter Visit Diagnoses Not on filedocumented in this encounter Care Teams Die Designer Apprentice Relationship Specialty Start Date End Date Raheem Shane MD [address] [place] [address] PCP - General 01/14/16 11/27/23 Nick Flores DO [address] [place] [phone] PCP - General Family Medicine 11/28/23 documented as of this encounter
--- OUTSIDE RECORDS SUMMARY | 2024-12-17 11:13 | XMS_ITS | Encounter Summary ---
Author Organization [facility] Address [address] [facility] [place] [address] Care Team Providers Care Driller'S Offsider Name Role Phone Raheem Shane MD Primary Care Provider [phone] Nick Flores DO Primary Care Provider [phone] Encounter Details Date Type Department Care Team (Late st Contact Info) Description 11/06/2020 Lab Requisition [facility] Care DermPath Lab [address] [facility], [place] [phone] Edmund Navarrete MD [address] [place] [address] Social History Tobacco Use Types Packs/Day Years Used Date Smoking Tobacco: Never Smokeless Tobacco: Never Alcohol Use Standard Drinks/Week Comments No 0 (1 standard drink = 0.6 oz pur e alcohol) Sex and Gender Information Value Date Recorded Sex Assigned at Not on file Legal Sex Male 5:24 PM 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 Gender Identity Not on file Sexual Orientation Not on file documented as of this encounter Plan of Treatment Not on file documented as of this encounter Procedures Procedure Name Priority Date/Time Associated Diagnosis Comments DERMATOPATHOLOGY Routine 11/04/2020 3:33 AM CDT documented in this encounter Results * DERMATOPATHOLOGY (11/04/2020 3:33 AM CDT) Case Report Dermatopathology Report Case: [id number] Authorizing Provider: Edmund Navarrete MD Collected: 11/04/2020 03:33 AM Ordering Location: [facility] DermPath Lab Received: 11/06/2020 05:57 AM Pathologist: Ayla Wylie MD Specimen: Skin, left lower helix rim 2:59 PM CDT DERMATOPATHOLOGY LABORATORY Final Diagnosis Specimen A. SKIN, left lower helix rim: BASAL CELL CARCINOMA, INFILTRATIVE PATTERN (C44.219) 2:59 PM CDT DERMATOPATHOLOGY LABORATORY at 1458 CDT Clinical History R/O SCC, scar. 2:59 PM CDT DERMATOPATHOLOGY LABORATORY Gross Description Specimen A: Received is one formalin filled container labeled with the patient's name and designated left lower helix rim. The specimen consists of a shave biopsy measuring [id number] and [id number]. Jar 0. 2:59 PM CDT DERMATOPATHOLOGY LABORATORY [...] characteristic determined by the Dermatopathology Laboratory at [facility], directed by Dr. Errol Hartley. These tests need not be, and therefore are not, approved by the [place] Food and Drug Administration. The tests are used for clinical purposes. Billing Codes Specimen Charges Stain Charges 73265 1 2:59 PM CDT DERMATOPATHOLOGY LABORATORY Embedded Images 2:59 PM CDT DERMATOPATHOLOGY LABORATORY Pathology/Cytolo gy TISSUE SPECIMEN FROM SKIN / Unknown 11/04/2020 3:33 AM CDT 11/06/2020 5:57 AM CDT us Edmund Navarrete MD LAB - PATHOLOGY/CYTOLOGY ORD ERABLES Final Result DERMATOPATHOLOGY LABORATORY [facility] - Department of Dermatology [address] [phone] documented in this encounter Visit Diagnoses Not on filedocumented in this encounter Care Teams Driller'S Offsider Relationship Specialty Start Date End Date Raheem Shane MD [address] [place] [address] PCP - General 01/14/16 11/27/23 Nick Flores DO [address] [place] [phone] PCP - General Family Medicine 11/28/23 documented as of this encounter
--- OUTSIDE RECORDS SUMMARY | 2024-12-17 11:13 | XMS_ITS | Encounter Summary ---
Author Organization [facility] Address [address] [place] [address] Care Team Providers Care Kier Boiler Name Role Phone Raheem Shane MD Primary Care Provider [phone] Nick Flores DO Primary Care Provider [phone] Encounter Details Date Type Department Care Team (Late st Contact Info) Description 02/27/2020 Lab Requisition [facility] D[facility] [address] [place] [id number] Edmund Navarrete MD [address] [place] [address] Social History Tobacco Use Types Packs/Day Years Used Date Smoking Tobacco: Never Smokeless Tobacco: Never Alcohol Use Standard Drinks/Week Comments No 0 (1 standard drink = 0.6 oz pur e alcohol) Sex and Gender Information Value Date Recorded Sex Assigned at Not on file Legal Sex Male 5:24 PM SCOURER Gender Identity Not on file Sexual Orientation Not on file documented as of this encounter Plan of Treatment Not on file documented as of this encounter Procedures Procedure Name Priority Date/Time Associated Diagnosis Comments DERMATOPATHOLOGY Routine 02/26/2020 3:27 AM SCOURER documented in this encounter Results * DERMATOPATHOLOGY (02/26/2020 3:27 AM SCOURER) Case Report Dermatopathology Report Case: [id number] Authorizing Provider: Edmund Navarrete MD Collected: 02/26/2020 03:27 AM Ordering Location: [facility] DermPath Lab Received: 02/27/2020 02:02 PM Pathologist: Ayla Wylie MD Specimen: Skin, right frontal scalp 12:43 PM [facility] DERMATOPATHOLOGY [facility]ORAT[facility] Final Diagnosis Specimen A. 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 Previous Bx: [id number]. Check margins. 12:43 PM [facility] DERMATOPATHOLOGY [facility]OR[facility] Gross Description Specimen A: Received is one formalin filled container labeled with the patient's name and designated right frontal scalp. The specimen consists of a curettage and desiccation biopsy measuring [id number]. The margin is inked green. Jar 0+. 12:43 PM [facility] DERMATOPATHOLOGY [facility]OR[facility] Microscopic Description Specimen A. [...] carcinoma cannot be ruled out. 12:43 PM [facility] DERMATOPATHOLOGY [facility]OR[facility] Disclaimer An external and internal positive and negative controls are appropriate for the histochemical, immunohistochemical and immunofluorescence stain(s) in this case (if any), except where stated explicitly. The performance characteristics of the stain(s) cited in this report were developed and its performance characteristic determined by the Dermatopathology Laboratory at [facility], directed by Dr. Errol Hartley. These tests need not be, and therefore are not, approved by the [place] Food and Drug Administration. The tests are used for clinical purposes. Billing Codes Specimen Charges Stain Charges 55863 1 1 12:43 PM [facility] Embedded Images 1 12:43 PM [facility] Pathology/Cytolo gy TISSUE SPECIMEN FROM SKIN / Unknown 02/26/2020 3:27 AM SCOURER 02/27/2020 2:02 PM SCOURER Edmund Navarrete MD LAB - PATHOLOGY/CYTOLOGY ORD ERABLES Final Result DERMATOPATHOLOGY LABORATORY [facility] - Department of Dermatology [address], [address] [phone] documented in this encounter Visit Diagnoses Not on filedocumented in this encounter Care Teams Kier Boiler Relationship Specialty Start Date End Date Raheem Shane MD [address] [place] [address] PCP - General 01/14/16 11/27/23 Nick Flores DO [address] [place] [id number] PCP - General Family Medicine 11/28/23 documented as of this encounter
[2024-12-17 13:12] LABS: Alanine Aminotransferase 19 U/L (6-50); Albumin Level 4.3 g/dL (3.5-5.1); Alkaline Phosphatase 48 U/L (38-126); Anion Gap 4 mmol/L (4-12); Aspartate Amino Transferase 35 U/L (17-59); Bilirubin,Total 1.0 mg/dL (0.2-1.3); Blood Urea Nitrogen 30 mg/dL (9-20); Calcium 9.0 mg/dL (8.4-10.2); Carbon Dioxide 32 mmol/L (22-30); Chloride 104 mmol/L (98-107); Estimated Glomerular Filt Rate > 60; Glucose 111 mg/dL (65-110); Hematocrit 44.6 % (42.0-52.0); Hemoglobin 14.2 g/dL (14.0-18.0); Immature Granulocyte Percent A 0.3 % (0-0.5); Lymphocytes Absolute Auto 1.38 K/mm3 (0.9-3.2); Mean Corpuscular HGB Conc 31.8 g/dl (32-36); Mean Corpuscular Hemoglobin 32.3 pg (26-34); Mean Corpuscular Volume 101.6 fl (80-100); Nucleated Red Blood Cells Absolute Auto 0.000 K/mm3 (0.0-0.012); Nucleated Red Blood Cells Perc 0.0 % (0.0-0.2); Platelet Count Result 168 k/mm3 (150-375); Potassium 5.5 mmol/L (3.4-5.0); Red Blood Count 4.39 M/mm3 (4.6-6.20); Sodium 140 mmol/L (137-145); Total Protein 7.3 g/dL (6.3-8.2); White Blood Count 7.0 K/mm3 (4.5-10.0)
== END 2024-12-17 10:15 | disposition home or self-care (01) ==
LOC: ANHGOSHLAB 10:15
PROVIDERS: PCP Internal Medicine; Visit Provider Internal Medicine
DX: I48.20 Chronic atrial fibrillation, unspecified (principal); Z79.01 Long term (current) use of anticoagulants
CPT/HCPCS: 36415; 80053; 85025